=== PATIENT | male | born 1950 | race Caucasian/White ===

== ENCOUNTER 2016-09-13 06:30 | Inpatient (IN) | payer OTHER ==
--- NOTE | 2016-09-13 06:56 | PROVIDER DOCUMENTATION ---
HPI-Neurological Disorder - General Chief Complaint: Altered Mental Status Stated Complaint: ams Time Seen by Provider: 09/13/16 06:46 Source: EMS, halfway records Allergies/Adverse Reactions: Patient Allergies Allergy/AdvReac Type Severity Reaction Status Date / Time erythromycin base Allergy Unknown Verified 03/10/16 11:14 erythromycin lactobionate * Allergy RASH Verified 04/19/16 06:56 [From Erythrocin] iodine Allergy RASH Verified 04/19/16 06:56 niacin Allergy RASH Verified 03/10/16 11:14 Sdxtbli-Tdc-Csu Reductase Allergy Unknown Verified 03/10/16 11:14 Inhibitor adhesive AdvReac Unknown Verified 03/10/16 11:14 povidone-iodine AdvReac RASH Verified 03/10/16 11:14 [From Betadine] soap * [From Betadine] AdvReac RASH Verified 03/10/16 11:14 Home Medications: Home Medication List Medication Instructions Recorded Confirmed Last Taken Type Docusate Sodium [Stool Softener] 100 mg PO DAILY 10/01/14 09/13/16 03/09/16 22: 00 History Famotidine [Acid Control] 20 mg PO DAILY PRN PRN 10/01/14 09/13/16 03/09/16 22: 00 History Garlic 500 mg PO BID 10/01/14 09/13/16 03/09/16 22:00 History Calcitriol 0.25 mcg PO MOWEFR 10/07/14 09/13/16 03/09/16 22:00 History Isosorbide Mononitrate E.r. [Imdur] 30 mg PO DAILY #0 tablet 03/17/16 09/13/16 Unknown Rx Sorbitol 30 ml PO DAILY PRN PRN #0 udc 03/17/16 09/13/16 Unknown Rx Albuterol 2.5MG/Ipratrop 0.5MG 3 ml INH Q2H PRN PRN #0 neb 03/24/16 09/13/16 Unknown Rx [Duoneb (A & A)] Cilostazol 100 mg PO BID 04/19/16 09/13/16 04/18/16 History Amiodarone [Cordarone] 200 mg PO DAILY #0 tablet 04/27/16 09/13/16 Unknown Rx Aspirin 81 mg PO DAILY #0 chewtab 04/27/16 09/13/16 Unknown Rx Gabapentin 300 mg PO PRN PRN #30 capsule 04/27/16 09/13/16 Unknown Rx Gabapentin [Neurontin] 600 mg PO QHS #0 04/27/16 09/13/16 3 Months Ago Rx Metoprolol Succinate E.r. [Toprol 25 mg PO DAILY #0 tablet 04/27/16 09/13/16 Unknown Rx Xl] Sevelamer [Renagel] 800 mg PO TID CC #0 tablet 04/27/16 09/13/16 Unknown Rx Baclofen 10 mg PO TID 09/13/16 09/13/16 Unknown History Cholecalciferol (Vit D3) [Vitamin 1,000 unit PO DAILY 09/13/16 09/13/16 Unknown History D] Ezetimibe [Zetia] 10 mg PO HS 09/13/16 09/13/16 Unknown History Insulin Detemir [Levemir] 17 unit SUBQ DAILY 09/13/16 09/13/16 Unknown History Insulin Lispro [Humalog] 5 unit SQ AC 09/13/16 09/13/16 Unknown History Methocarbamol [Robaxin-750] 750 mg PO TID AC 09/13/16 09/13/16 Unknown History Oxycodone HCl 10 mg PO DIRECTED 09/13/16 09/13/16 Unknown History Oxycodone HCl 10 mg PO HS 09/13/16 09/13/16 Unknown History Oxycodone HCl 10 mg PO Q6H PRN PRN 09/13/16 09/13/16 Unknown History Polyethylene Glycol 3350 [Miralax] 17 gm PO WLUNCH 09/13/16 09/13/16 Unknown History Zinc Sulfate 220 mg PO DAILY 09/13/16 09/13/16 Unknown History - History of Present Illness-Neuro Nature of Presenting Problem: 66 y/o WM with a PMHx of DM, ESRD requiring dialysis, HLD, RLS, Lung Cancer and neuropathy that presents to the ED with a one day h/o AMS per halfway records and EMS. Per medical records, "pt became very lethargic upon waking for dialysis." Pt was " unable to follow commands or answer questions." BS at halfway reported to be 399. Vital signs stable. Blood sugar in EMS was 309. Pt unable to provide information at time of interview. Review of Systems - Adult - REVIEW OF SYSTEMS - ADULT ROS:: unobtainable per condition Constitutional: reports: other (unable to obtain due to condition) Eyes: reports: other (unable to obtain due to condition) Ears, Nose, Mouth & Throat: reports: other (unable to obtain due to condition) Cardiovascular: reports: other (unable to obtain due to condition) Respiratory: reports: other (unable to obtain due to condition) Gastrointestinal: reports: other (unable to obtain due to condition) Genitourinary: reports: other (unable to obtain due to condition) Musculoskeletal: reports: other (unable to obtain due to condition) Integumentary: reports: other (unable to obtain due to condition) Neurological: reports: other (unable to obtain due to condition, however medical record indicate pt is lethargic) Psychiatric: reports: other (unable to obtain due to condition) Endocrine: reports: other (unable to obtain due to condition) Hematologic/Lymphatic: reports: other (unable to obtain due to condition) Allergic/Immunologic: reports: other (unable to obtain due to condition) Past History - Adult - PAST MEDICAL HISTORY-ADULT Review of Records: reports: Old Records Reviewed, Nursing Assessment Review, Medications Reviewed Major Childhood Illnesses: reports: denies history Cardiovascular: reports: HTN Genitourinary: reports: dialysis, ESRD Endocrine/Immune: reports: Diabetes Other Conditions: reports: denies history - PRIOR SURGERIES/PROCEDURES Surgical/Procedure History: reports: other (cataract;) - PRIOR HOSPITALIZATIONS Prior Hospitalizations: reports: none - IMMUNIZATION STATUS Childhood Immunizations: See Nurse Assessment Flu Vaccine: See Nurse Assessment - FAMILY HISTORY Family History: reviewed, not pertinent - SOCIAL HISTORY Smoking: other (unable to obtain due to condition) Substance Use: other (unable to obtain due to condition) Living Situation: care facility Physical Exam- Neurological - Physical Exam-Neuro Initial Vital Signs Reviewed: Yes General Appearance: lethargic, slow to respond, obtunded. negative: anxious HENMT: normocephalic/atraumatic. negative: pharyngeal erythema, tonsillar exudate (dry oral mucosa) Head Injury: no evidence of injury. negative: ecchymosis, swelling, tenderness Neck: non-tender, supple. negative: tender midline Respiratory: chest non-tender, lungs clear, normal breath sounds, no pleuratic chest pain, no respiratory distress, no accessory muscle use. negative: accessory muscle use, crackles, rales, rhonchi, stridor, wheezing Cardiovascular: normal peripheral pulses, regular rate, rhythm, no murmur Abdominal Exam: normal bowel sounds, non tender, soft. negative: guarding, rigid, rebound, tenderness Lymphatic: no adenopathy Extremity: other (right lower extremity with signs of atrophy). negative: swelling, tenderness head machine feeder Exam: normal speech. negative: facial droop, facial paresthesias, facial weakness Motor/Sensory: no motor deficit, no sensory deficit, sensory deficit Neurologic: negative: facial droop, focal weakness, motor weakness, sensory deficit Integumentary: rash (rash at bilateral lower extremities). negative: swelling, tenderness Psych/Mental Status: other (lethargic). negative: normal mood/affect, normal thought content, normal thought process - Glascow Coma Scale Best Eye Response: (4) open spontaneously Best Verbal Response: (4) confused conversation Best Motor Response: (6) obeys commands (GCS = 14) Progress - PLAN OF CARE/RESULTS Progress/Plan/Lab Results: Laboratory Tests 09/13/16 09/13/16 09/13/16 06:56 07:22 07:22 WBC 4.13 L RBC 3.79 L Hgb 11.4 L Hct 35.5 L MCV 93.7 MCH 30.1 MCHC 32.1 L RDW Std Deviation 13.4 Plt Count 139 MPV 9.4 Immature Gran % (Auto) 0.0 Neut % (Auto) 59.2 Lymph % (Auto) 20.8 [place] % (Auto) 11.6 H Eos % (Auto) 6.5 Baso % (Auto) 1.9 H Immature Gran # (Auto) 0.00 Neut # (Auto) 2.44 Lymph # (Auto) 0.86 L [place] # (Auto) 0.48 Eos # (Auto) 0.27 Baso # (Auto) 0.08 PT INR PTT (Actin FS) Specimen Type ARTERIAL Sample Site R RADIAL pH 7.33 L pCO2 43 pO2 89 HCO3 22.4 Base Excess -3.2 L Oxyhemoglobin 94.8 L ABG O2 Sat (Calculated) 16.1 ABG O2 Saturation 98.5 ABG Carboxyhemoglobin 2.50 ABG Methemoglobin 1.3 Magan Test YES A-a O2 Difference 57.0 Total Hemoglobin 12.0 Lactate 0.90 Liter Flow 2.0 Blood Gas Modality CANNULA FiO2 % 28.0 Sodium 128 L Potassium 5.1 Chloride 88 L Carbon Dioxide 21 L Anion Gap 19 BUN 41 H Creatinine 5.9 H Estimated GFR/1.73 m2 10 BUN/Creatinine Ratio 7 Glucose 348 H Calculated Osmolality 281 Calcium 9.4 Total Bilirubin 0.36 AST 7 L ALT 9 L Alkaline Phosphatase 131 H Creatine Kinase 40 Troponin T Total Protein 6.1 L Albumin 3.9 Globulin 2.2 Albumin/Globulin Ratio 1.8 Plasma Lactate Urine Source Urine Color Urine Turbidity Urine pH Ur Specific [place] Urine Protein Ur Glucose (Stick) Ur Ketones (Stick) Urine Blood Urine Nitrite Urine Bilirubin Urobilinogen Dipstick Urine Leukocytes Urine WBC (Auto) Urine RBC (Auto) U Epithel Cells (Auto) Urine Bacteria (Auto) Urine Crystals Small Round Cells Urine Casts Urine Yeast-like Cells Urine Opiates Screen Ur Oxycodone Screen Ur Methadone, Qual Ur Barbiturates Screen Ur Phencyclidine Scrn Ur Amphetamines Screen U Benzodiazepines Scrn Urine Cocaine Screen U Cannabinoids Screen Acetone Level 09/13/16 09/13/16 09/13/16 07:22 07:22 07:22 WBC RBC Hgb Hct MCV MCH MCHC RDW Std Deviation Plt Count MPV Immature Gran % (Auto) Neut % (Auto) Lymph % (Auto) [place] % (Auto) Eos % (Auto) Baso % (Auto) Immature Gran # (Auto) Neut # (Auto) Lymph # (Auto) [place] # (Auto) Eos # (Auto) Baso # (Auto) PT 11.9 H INR 1.12 PTT (Actin FS) 29.0 Specimen Type Sample Site pH pCO2 pO2 HCO3 Base Excess Oxyhemoglobin ABG O2 Sat (Calculated) ABG O2 Saturation ABG Carboxyhemoglobin ABG Methemoglobin Magan Test A-a O2 Difference Total Hemoglobin Lactate Liter Flow Blood Gas Modality FiO2 % Sodium Potassium Chloride Carbon Dioxide Anion Gap BUN Creatinine Estimated GFR/1.73 m2 BUN/Creatinine Ratio Glucose Calculated Osmolality Calcium Total Bilirubin AST ALT Alkaline Phosphatase Creatine Kinase Troponin T 0.196 H Total Protein Albumin Globulin Albumin/Globulin Ratio Plasma Lactate 1.0 Urine Source Urine Color Urine Turbidity Urine pH Ur Specific [place] Urine Protein Ur Glucose (Stick) Ur Ketones (Stick) Urine Blood Urine Nitrite Urine Bilirubin Urobilinogen Dipstick Urine Leukocytes Urine WBC (Auto) Urine RBC (Auto) U Epithel Cells (Auto) Urine Bacteria (Auto) Urine Crystals Small Round Cells Urine Casts Urine Yeast-like Cells Urine Opiates Screen Ur Oxycodone Screen Ur Methadone, Qual Ur Barbiturates Screen Ur Phencyclidine Scrn Ur Amphetamines Screen U Benzodiazepines Scrn Urine Cocaine Screen U Cannabinoids Screen Acetone Level 09/13/16 09/13/16 09/13/16 07:22 08:00 08:00 WBC RBC Hgb Hct MCV MCH MCHC RDW Std Deviation Plt Count MPV Immature Gran % (Auto) Neut % (Auto) Lymph % (Auto) [place] % (Auto) Eos % (Auto) Baso % (Auto) Immature Gran # (Auto) Neut # (Auto) Lymph # (Auto) [place] # (Auto) Eos # (Auto) Baso # (Auto) PT INR PTT (Actin FS) Specimen Type Sample Site pH pCO2 pO2 HCO3 Base Excess Oxyhemoglobin ABG O2 Sat (Calculated) ABG O2 Saturation ABG Carboxyhemoglobin ABG Methemoglobin Magan Test A-a O2 Difference Total Hemoglobin Lactate Liter Flow Blood Gas Modality FiO2 % Sodium Potassium Chloride Carbon Dioxide Anion Gap BUN Creatinine Estimated GFR/1.73 m2 BUN/Creatinine Ratio Glucose Calculated Osmolality Calcium Total Bilirubin AST ALT Alkaline Phosphatase Creatine Kinase Troponin T Total Protein Albumin Globulin Albumin/Globulin Ratio Plasma Lactate Urine Source CATH Urine Color YELLOW Urine Turbidity HAZY Urine pH 7.0 Ur Specific [place] 1.011 Urine Protein 300 A Ur Glucose (Stick) >1000 A Ur Ketones (Stick) TRACE A Urine Blood MODERATE A Urine Nitrite NEGATIVE Urine Bilirubin NEGATIVE Urobilinogen Dipstick NORMAL Urine Leukocytes LARGE A Urine WBC (Auto) TNTC A Urine RBC (Auto) TNTC A U Epithel Cells (Auto) <10 Urine Bacteria (Auto) NEGATIVE Urine Crystals Not Reportable Small Round Cells Not Reportable Urine Casts NONE SEEN Urine Yeast-like Cells Not Reportable Urine Opiates Screen NONE DETECTED Ur Oxycodone Screen PRESUMPTIVE POSITIVE A Ur Methadone, Qual NONE DETECTED Ur Barbiturates Screen NONE DETECTED Ur Phencyclidine Scrn NONE DETECTED Ur Amphetamines Screen NONE DETECTED U Benzodiazepines Scrn NONE DETECTED Urine Cocaine Screen NONE DETECTED U Cannabinoids Screen NONE DETECTED Acetone Level SMALL A Orders Category Date Time Status Admit - [facility] Routine AdmDCTranf 09/13/16 09:54 Ordered Activity - Strict Bedrest ORDERED Care 09/13/16 09:54 Active Call Admitting on Arrival AT ADMISSION Care 09/13/16 09:55 Active Cardiac Monitoring DIRECTED Care 09/13/16 06:56 Active Finger Stick Blood Sugar (ED) DIRECTED Care 09/13/16 06:56 Active Neurological Check Q4H Care 09/13/16 09:55 Active Oxygen Therapy- ED Nursing DIRECTED Care 09/13/16 06:54 Active Oxygen Therapy- ED Nursing DIRECTED Care 09/13/16 06:56 Active Saline Loc NOW Care 09/13/16 06:56 Active Vital Signs Order ARRIVAL TO ROOM Care 09/13/16 09:54 Active NPO Diet 09/13/16 09:56 Active CHEST-PORTABLE [RAD] Stat Exams 09/13/16 06:56 Completed HEAD W/O CONTRAST [CT] Stat Exams 09/13/16 06:31 Completed ABG [RESP] Routine Lab 09/13/16 06:56 Completed CBC WITH ELECTRONIC DIFF [HEME] Stat Lab 09/13/16 07:22 Completed CK PROFILE [SP CHEM] Stat Lab 09/13/16 07:22 Completed COMPREHENSIVE METABOLIC PANEL [CHEM] Stat Lab 09/13/16 07:22 Completed Ketone [ACETONE SERUM] [CHEM] Stat Lab 09/13/16 07:22 Completed LACTATE, PLASMA [CHEM] Stat Lab 09/13/16 07:22 Completed PROTIME WITH INR [COAG] Stat Lab 09/13/16 07:22 Completed PTT [COAG] Stat Lab 09/13/16 07:22 Completed TROPONIN T Stat Lab 09/13/16 07:22 Completed URINALYSIS W/POSS RFLX CULT [URINALYSIS] Stat Lab 09/13/16 08:00 Completed URINE CULTURE [RM] Routine Lab 09/13/16 08:35 Received URINE DRUG SCREEN Stat Lab 09/13/16 08:00 Completed URINE MANUAL MICROSCOPIC [URINALYSIS] Stat Lab 09/13/16 08:00 Completed 0.9% Sodium Chloride Inj [Ns] 1,000 ml Med 09/13/16 10:00 Ordered IV KVO 0.9% Sodium Chloride Inj [Ns] 500 ml Med 09/13/16 08:32 Discontinued IV 999 mls/hr Insulin Human Regular [Humulin R] Med 09/13/16 08:33 Discontinued 5 unit IV NOW ONE Oxygen Device Routine Oth 09/13/16 09:55 Active Pulse Oximetry Stat Oth 09/13/16 06:56 Active EKG [EKG] Stat Ther 09/13/16 06:43 Draft EKG [EKG] Stat Ther 09/13/16 06:56 Ordered Transfer/Admit Order [TRANSFER] Routine Transfer 09/13/16 09:56 Ordered Vital Signs - 24 hr 09/13/16 06:50 Temperature 97.5 F L Pulse Rate 60 Respiratory 16 Rate Blood Pressure 163/74 O2 Sat by Pulse 96 Oximetry - EKG 1 Time of EKG reading by physician:: 06:50 EKG Read and Signed by:: Aleksandra Santos Jr EKG Interpretation (*Must complete 3 of following elements*): Normal Rate: 60 Rhythm: normal sinus [place]: normal QRS: normal MS Interval: normal ST Wave: normal Comments: normal EKG - XRAY 1 XRAY Study: Chest Impression: Abnormal XRAY Interpretation: cardiomegaly with mild pulmonary edema - CT/MRI 1 CT Study: Head Impression: Abnormal CT Results: No hemorrhage. Mild Atrophy with mild microvascular changes. - CONSULTS/PCP/HOSPITALIST Notification #1 *Consult/PCP/Hospitalist*: Dr. Olivares Time Discussed: 09:48 Consult Disposition: Admit, other (consult Nephrology) #2 Consult: Dr. 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
--- NOTE | 2016-09-13 07:28 | Diag Imaging Result Document ---
PROCEDURE NAME: HEAD W/O CONTRAST - 09/13/2016 CT BRAIN WITHOUT CONTRAST. DOSE REDUCTION PROTOCOL: COMPARISON: 04/19/2016. FINDINGS: No parenchymal hemorrhage. No epidural or subdural hematoma. No subarachnoid hemorrhage. No mass identified on this noncontrasted exam. There are mild microvascular ischemic changes with minimal atrophy. IMPRESSION: 1. No hemorrhage. 2. Mild atrophy with mild microvascular ischemic changes. A preliminary report was given at 7:01 a.m.
[2016-09-13 07:38] LABS: MANUAL DIFF NEEDED? NO
[2016-09-13 07:39] LABS: ALLEN TEST YES; BE -3.2 mmoll (-3.0-3.0); BLOOD TYPE ARTERIAL; DRAW SITE R RADIAL; METHB 1.3 % (0.0-1.5); O2(CT) 16.1 mL/dL (15.0-23.0); PCO2(98.6) 43 mmHg (35-45); PO2(98.6) 89 mmHg (60-100); SAMPLE BLOOD; SAO2 98.5 % (95.0-100.0); pH(98.6) 7.33 (7.35-7.45)
[2016-09-13 07:40] LABS: MODALITY CANNULA
[2016-09-13 07:41] LABS: BASO% 1.9 % (0.0-0.8); EOS# 0.27 X1000 (0.0-0.7); EOS% 6.5 % (0.0-10.0); HEMATOCRIT 35.5 % (42.0-52.0); HEMOGLOBIN 11.4 g/dL (14.0-18.0); LYMPH# 0.86 X1000 (1.2-3.4); LYMPH% 20.8 % (20.5-51.1); MCH 30.1 PG (27-31); MCHC 32.1 g/dL (33-37); MCV 93.7 FL (81-99); MONO# 0.48 X1000 (0.11-0.59); MONO% 11.6 % (1.7-9.3); MPV 9.4 FL (7.4-10.4); NEUT% 59.2 % (42.2-75.2); PLT 139 X1000 (130-400); RBC 3.79 XMIL (4.7-6.1)
[2016-09-13 07:49] LABS: INR 1.12; PROTIME 11.9 Seconds (9.2-11.7)
[2016-09-13 08:01] LABS: ALBUMIN 3.9 g/dL (3.5-5.0); CALCIUM 9.4 mg/dL (8.8-10.2); POTASSIUM 5.1 mmol/L (3.5-5.1); TOTAL BILIRUBIN 0.36 mg/dL (0.20-1.00); TOTAL PROTEIN 6.1 g/dL (6.3-8.3)
--- NOTE | 2016-09-13 08:09 | EKG Report ---
Test Performed on : 09/13/2016 06:50:32 AM Test Reason : AMS Blood Pressure : / mmHG Vent. Rate : 060 BPM Atrial Rate : 060 BPM P-R Int : 186 ms QRS Dur : 088 ms QT Int : 454 ms P-R-T Axes : 070 081 086 degrees QTc Int : 454 ms Normal sinus rhythm. Normal ECG When compared with ECG of 23-MAR-2016 08:26, No significant change was found Unconfirmed Result
--- NOTE | 2016-09-13 08:11 | Diag Imaging Result Document ---
PROCEDURE NAME: CHEST-PORTABLE - 09/13/2016 PORTABLE CHEST: COMPARISON: 04/21/2016. FINDINGS: There are sternal wires and surgical clips. The patient is slightly rotated to the right. The heart remains enlarged. Mild increased interstitial markings. No consolidation. No pleural effusions identified. Prior orthopaedic replacement of the left shoulder. IMPRESSION: Cardiomegaly with mild pulmonary edema.
[2016-09-13 08:13] LABS: URINE SOURCE CATH
[2016-09-13 08:21] LABS: BILIRUBIN URINE NEGATIVE (NEGATIVE); BLOOD URINE MODERATE (NEGATIVE); COLOR YELLOW; GLUCOSE URINE >1000 mg/dL (NEGATIVE); LEUKOCYTES URINE LARGE (NEGATIVE); NITRITE URINE NEGATIVE (NEGATIVE); PROTEIN URINE 300 mg/dL (NEGATIVE); SP GRAVITY URINE 1.011; TURBIDITY URINE HAZY (CLEAR); UROBILINOGEN URINE NORMAL (NORMAL)
[2016-09-13 08:22] LABS: URINE MICRO REVIEW NEEDED? YES
[2016-09-13] MEDS ORDERED: NS 500 ML IV ONE (08:32)
[2016-09-13 08:33] LABS: UR EPITHELIAL CELLS <10 /HPF (<10); URINE BACTERIA NEGATIVE /HPF; URINE CULTURE NEEDED? YES; URINE RBC TNTC /HPF (<10); URINE WBC TNTC /HPF (<10)
[2016-09-13] MEDS ORDERED: HUMULIN R IV ONE (08:33)
[2016-09-13 08:34] LABS: URINE CASTS NONE SEEN
[2016-09-13 08:51] LABS: UR AMPHETAMINES QUAL NONE DETECTED (NONE DETECT); UR BARBITUATES QUAL NONE DETECTED (NONE DETECT); UR BENZODIAZEPIN QUAL NONE DETECTED (NONE DETECT); UR CANNABINOIDS QUAL NONE DETECTED (NONE DETECT); UR COCAINE QUAL NONE DETECTED (NONE DETECT); UR METHADONE QUAL NONE DETECTED (NONE DETECT); UR OPIATES QUAL NONE DETECTED (NONE DETECT); UR OXYCODONE QUAL PRESUMPTIVE POSITIVE (NONE DETECT); UR PCP QUAL NONE DETECTED (NONE DETECT)
[2016-09-13] MEDS ORDERED: NS 1,000 ML IV SCH (10:00)
[2016-09-13] MEDS ORDERED: HEPARIN IV PRN (11:13)
[2016-09-13] MEDS ORDERED: TIGHT: 0.2 ML/HR MISC PRN (11:13)
[2016-09-13] MEDS ORDERED: NS 2,000 ML MISC PRN (11:13)
[2016-09-13] MEDS ORDERED: NS 2,000 ML ONE (12:24)
[2016-09-13] MEDS ORDERED: HEPARIN ONE (12:31)
--- NOTE | 2016-09-13 12:36 | HISTORY AND PHYSICAL ---
PRIMARY CARE PHYSICIAN: Dara Palacios MD ONCOLOGIST: Sujatha Forrest MD DISCOUNT CLERK: Nathanael Kurtz MD CHIEF COMPLAINT: Altered mental status. HISTORY OF PRESENT ILLNESS: Mr. Goncalves is a 66-year-old, male, well known to our service. He has a history of ESRD on hemodialysis, adenocarcinoma of the lung, coronary artery disease and others. He presents from retirement with apparent altered mental status. Patient is minimally responsive at this time and is unable to give any type of history. History is taken per record review. He was sent from the retirement because he was unable to follow commands or answer questions and he was lethargic today. His blood sugar was noted to be 399. EMS was called and the patient was sent here. Head CT does not show anything acute. Chest x-ray shows mild cardiomegaly and slight pulmonary edema, but nothing acute. His laboratory data shows good oxygenation and ventilation on his ABG. Chemistry shows some mild hyponatremia and hyperglycemia. His UA is positive for heavy glucosuria and WBC's, but no bacteria. On physical exam, the patient does not respond to painful stimuli, he is breathing on his own and he does have a pulse. He does occasionally move an extremity randomly, but not purposefully. He has come in before with altered mental status and he is on long-term narcotic therapy. His home medications it looks like he takes quite a bit of oxycodone as well as Neurontin and baclofen. We have elected not to give him Narcan at this time as he is hemodynamically stable and he is oxygenating and ventilating well. As such, we are going to admit him for further treatment and evaluation. PAST MEDICAL HISTORY: 1. Lung cancer. 2. ESRD on hemodialysis followed by Dr. Kurtz. 3. Coronary artery disease. 4. Diabetes mellitus requiring insulin. 5. Hypertension. 6. Paroxysmal atrial fibrillation. 7. Anemia of chronic disease. 8. Chronic vitamin D deficiency. 9. Chronic pain. PAST SURGICAL HISTORY: CABG, colon resection, right foot ORIF, lower back surgery, appendectomy, bilateral cataract surgery, left shoulder arthroplasty. SOCIAL HISTORY: The patient currently lives at a rehab in [place]. Per records he is an ex smoker. There is no alcohol or drug use. FAMILY HISTORY: Noncontributory. REVIEW OF SYSTEMS: Unable to obtain. ALLERGIES: Erythromycin, iodine, niacin, statins, adhesive, and Betadine. HOME MEDICATIONS: Baclofen 10 mg t.i.d., calcitriol 0.25 mcg as directed, vitamin D 1000 units p.o. daily, cilostazol 100 mg b.i.d., stool softener daily, Zetia 10 mg HS, famotidine 20 mg daily, garlic 500 mg b.i.d., Levemir 17 units subcu daily, Humalog 5 units subcu a.c., Robaxin 750 mg p.o. t.i.d. a.c., oxycodone 10 mg p.o. q.6 hours as needed, oxycodone 10 mg p.o. HS and oxycodone 10 mg as needed for breakthrough pain, MiraLAX 17 g p.o. with lunch, zinc sulfate 220 mg daily, amiodarone 200 mg daily, aspirin 81 mg daily, Neurontin 300 mg as needed, Neurontin 600 mg HS, isosorbide mononitrate ER 30 mg daily, Toprol-XL 25 mg daily, Renagel 800 mg p.o. t.i.d., sorbitol 30 mg p.o. daily. PHYSICAL EXAMINATION: VITAL SIGNS: Blood pressure 121/62, heart rate 54, respiratory rate 12, O2 saturation 97% on 2 L. Temperature is 97.5 degrees. GENERAL: This is a chronically ill and frail-appearing 66-year-old, male, lying in hospital bed. No acute distress. NEUROLOGIC: The patient is lethargic and asleep. He will not respond to sternal rub. Occasionally moves an extremity but without purpose. Cranial nerves are intact 2 through 12. HEENT: Head atraumatic and normocephalic. His pupils are equal, but pinpoint bilaterally. Oral mucosa is a bit dry. Trachea is midline. CHEST: Clear to auscultation bilaterally. CV: Regular rate and rhythm. S1-S2 is noted. GI: Soft, nondistended, nontender. Bowel sounds are positive. EXTREMITIES: Without edema, clubbing or cyanosis. Pulses are diminished, but palpable. DIAGNOSTIC DATA: Head CT chronic changes, nothing acute. Chest x-ray shows mild cardiomegaly and slight pulmonary edema. EKG shows sinus rhythm without acute ST or T abnormality. WBC 4.13, hemoglobin 11.4, hematocrit 35.5, platelet count 139,000. INR 1.12. ABG on 2 L, pH 7.33, CO2 43, O2 89, bicarb 22.4. Oxyhemoglobin 94.8. Lactate 0.9. Sodium 128, potassium 5.1, chloride 88, CO2 21, anion gap 19, BUN 41, creatinine 5.9. Glucose is 348. AST 7, ALT 9, alkaline phosphatase 131, troponin 0.196. Toxicology positive for oxycodone and small acetone. ASSESSMENT AND PLAN: 1. Toxic encephalopathy: This is likely secondary to narcotic therapy on top of the ESRD. We are going to withhold any mind-altering substances and have Dr. Kurtz dialyze the patient. We will monitor his neuro status closely. 2. Hyperglycemia: Patient has gotten IV insulin in the ER. We will continue with high-dose sliding scale and continue his home insulin once the patient is eating again. 3. Endstage renal disease: Dr. Kurtz has been consulted for dialysis management. Currently, he is slightly anemic and hyponatremic, but this is overall stable. We will continue to monitor. 4. Elevated troponin's: Patient has chronically elevated troponin's, likely secondary to volume overload on top of CAD. We will continue to trend his enzymes. He has had an echocardiogram done on 04/19/2016, which showed hyperdynamic LV and EF 70-75%. 5. Lung cancer: Chronic and stable. We will him follow up with Oncology on outpatient basis. 6. Paroxysmal atrial fibrillation: Chronic and stable. We will continue his home medicines once he is more awake. 7. Diabetes mellitus: As above, add pattern sugars and sliding scale insulin. 8. Hypertension: We will add IV p.r.n. for now and restart his home medications once he is more awake. 9. DVT prophylaxis with heparin and GI prophylaxis with IV Protonix. Further recommendations to follow. Dictated by SANDOR Martinez for Paco Olivares MD
[2016-09-13] MEDS: HUMALOG SUBQ SCH ×2 (17:46→21:20)
[2016-09-13] MEDS: PROTONIX IV SCH (17:46)
--- NOTE | 2016-09-13 17:51 | CONSULTATION ---
DATE OF CONSULTATION: 09/13/2016 REASON FOR CONSULTATION: Endstage renal disease. Evaluate and treat. HISTORY OF PRESENT ILLNESS: Mr. Goncalves is a 66-year-old white male who is well known to me. He has diabetes type 1 and has end-stage kidney disease, retinopathy, peripheral neuropathy, peripheral vascular disease, coronary disease, etc. He had a recent diagnosis of lung cancer and also a cervical spine fracture which was not pathologic by report. He has been living in a intermediate facility in [place] and participating in rehab. I last saw him about 2 weeks ago at which time he was awake, alert, in his usual baseline health. Still struggling with weaknesses, but eating acceptably and making progress physically. He was brought to the emergency room because of altered sensorium. He did have a muscle relaxer added recently. The reason for this is not known to me. That has been the only medication to medication change , though he does take high doses of gabapentin as well. On arrival, he responded only to pain, and this is essentially true still. With vigorous stimuli he will open his eyes, but he does not fix on me and doses right back off. He had a CT of the brain which did not show any acute abnormalities. He does have chronic microvascular changes. Chest x-ray performed this morning at 7 o'clock had mild pulmonary edema. There is no mention of his lung mass. PAST MEDICAL HISTORY: As above. HOME MEDICATIONS: Reviewed as listed. Baclofen, calcitriol, vitamin D2, cilostazol, Colace, Zetia, famotidine, Levemir, oxycodone, Robaxin, MiraLAX, zinc, amiodarone, aspirin, Neurontin, isosorbide, Toprol, Renvela, sorbitol. ALLERGIES: Erythromycin, iodine, niacin, statins, adhesive, Betadine. FAMILY HISTORY/SOCIAL HISTORY/REVIEW OF SYSTEMS: Otherwise not obtainable. PHYSICAL EXAMINATION: Vital Signs: Blood pressure 121/62, heart rate 54, respirations 12, afebrile. General: Mental state as above. No acute distress. Skin: Warm and dry. HEENT: Conjunctivae are pink. Pupils are equal and round. Oropharynx is clear. Neck : Supple. Trachea is midline. Positive jugular venous distention. Heart: PMI is nondisplaced. Regular rate and rhythm with systolic murmur present. Lungs: Have equal breath sounds. Somewhat sonorous with a few rhonchi. Abdomen: Soft, nontender. Bowel sounds are present. No organomegaly or masses or bruits. Extremities: Have 1+ edema. No clubbing or cyanosis. Neurologic: Grossly nonfocal except for his global depressed sensorium, as above. IMPRESSION: 1. End-stage kidney disease: He will have his routine hemodialysis today with a goal of 3-4 L ultrafiltration. 2. Electrolytes: Modest hyperkalemia that will be addressed with dialysis. 3. Acid-base: Modest metabolic acidosis. Managed with dialysis. 4. Anemia: In target. 5. Altered mental status: I agree with your care thus far. Specifically, all of his sensory altering medications have been withheld and appropriate cultures have been obtained. No specific antibiotics have been ordered. Observe his response. [facility]
[2016-09-13] MEDS: HEPARIN SUBQ SCH (22:03)
[2016-09-14] MEDS ORDERED: STERILE WATER INJ. INJ ONE (06:35)
[2016-09-14] MEDS ORDERED: GEODON IM ONE (06:35)
[2016-09-14 07:13] LABS: HEMATOCRIT 41.8 % (42.0-52.0); HEMOGLOBIN 13.1 g/dL (14.0-18.0); MCH 29.9 PG (27-31); MCHC 31.3 g/dL (33-37); MCV 95.4 FL (81-99); MPV 9.5 FL (7.4-10.4); RBC 4.38 XMIL (4.7-6.1)
[2016-09-14 07:32] LABS: AGAP 25; BUN 19 mg/dL (8-22); CALCIUM 9.5 mg/dL (8.8-10.2); CHLORIDE 95 mmol/L (98-107); COSMO 287; HDL 64 mg/dL (35-55); LDL 37 mg/dL; POTASSIUM 4.9 mmol/L (3.5-5.1); SODIUM 139 mmol/L (136-145); TCO2 19 mmol/L (25-35); TRIGLYCERIDES 195 mg/dL (39-160); VLDL 39 mg/dL
--- NOTE | 2016-09-14 10:51 | PROGRESS NOTE ---
DATE: 09/14/2016 SUBJECTIVE: He remains unresponsive. He does move in the bed spontaneously, and he opens his eyes and looks toward me but he is nonverbal. This is some improvement from yesterday. OBJECTIVE: Vital Signs: Blood pressure 123/72, heart rate 71, respirations 20, afebrile. Intake 200 mL, output 3 L. Physical Examination: General: Mental status as above. Skin: Warm and dry. HEENT: Conjunctivae are pink. Pupils are equal. Oropharynx is dry. Neck: Neck veins are not distended. Heart: Regular with no murmurs, rubs, or gallops. Lungs: Have equal breath sounds. No crackles or wheezes. Abdomen: Soft and nontender. Bowel sounds are present. Extremities: Have no edema, clubbing, or cyanosis. Laboratory Data: Sodium 139, potassium 4.9, chloride 95, bicarbonate 19, BUN 19, creatinine 3.7. Hemoglobin 13.1. IMPRESSION: 1. Altered mental status. We are assuming this is related to medications. Specifically, he had a muscle relaxer added in the day prior to his admission. All medications have been held. He did receive 1 dose of Geodon this morning because of his agitation. He does also have lung cancer and has had some treatment for that. There is no known evidence of metastasis at this time. 2. End-stage kidney disease: He had dialysis yesterday. 3. Acid-base acceptable. 4. Electrolytes in target. 5. Anemia in target.
[2016-09-14] MEDS ORDERED: VANCOMYCIN IV PER PHARMACY MISC SCH (11:00)
[2016-09-14 11:16] LABS: ALLEN TEST NO; BE -8.9 mmoll (-3.0-3.0); BLOOD TYPE ARTERIAL; DRAW SITE R BRACHIAL; METHB 1.5 % (0.0-1.5); MODALITY ROOM AIR; O2(CT) 16.4 mL/dL (15.0-23.0); PCO2(98.6) 31 mmHg (35-45); PO2(98.6) 70 mmHg (60-100); SAMPLE BLOOD; SAO2 94.8 % (95.0-100.0); THB 12.8 g/dL (11.5-17.4); pH(98.6) 7.32 (7.35-7.45)
[2016-09-14] MEDS: HUMALOG SUBQ SCH (11:30)
--- NOTE | 2016-09-14 11:40 | PROGRESS NOTE ---
DATE: 09/14/2016 SUBJECTIVE: Today, Mr. Goncalves continues to be remarkably altered. He is nonverbal, very boisterous. He is actually hanging both legs on the rails of the bed. He is in 2-point restraint. OBJECTIVE: Vital Signs: Blood pressure is 123/72, pulse of 71, respirations are 20, temperature is 98.1 degrees. General Examination: Mr. Goncalves is a 66-year-old, male. He is in bed. He does not seem to be in any distress. HEENT: Mucosa is pink and moist. Anicteric and acyanotic. Neck: Supple. Chest: Good air entry bilateral. Abdomen: Slightly distended but nontender. Bowel sounds are present. Extremities: No pedal edema. There are a few lower extremity scratches and honey-crusted lesion very suspicious for impetigo. PROTECTION MGR : Patient is drowsy. He is actually not responding to any verbal stimulation but he would move very actively to painful stimulation. He will not open his eyes for anything. Even when you try to open them, he will persistently try to force them closed. Laboratory Data: WBC 6.28, hemoglobin is 13.1, platelet count of 148,000. Sodium is 139, potassium is 4.9, chloride is 95, bicarb is 19, gap of 25. Ferritin is very high. Urine culture is negative. The acetone is positive. ASSESSMENT: 1. Altered mental status due to global encephalopathy. The etiology is unclear. Urine toxicology was positive for oxycodone which we think is contributing to this. However, patient is also remarkably acidotic and even after having dialysis yesterday , he continues to be remarkably acidotic with a high anion gap. The serum acetone yesterday was positive so I am thinking that patient probably also has diabetic ketoacidosis confounding his altered mentation. I will repeat the acetone level. I will also do a lactate level. We will repeat the arterial blood gases. If he continues to have gap acidosis, I will move him to [facility] and institute the diabetic ketoacidosis protocol. 2. Abnormal TSH. I am unsure if patient is hypothyroid. I will repeat this and do a free T4 with that to give a better picture of the thyroid function state. 3. Endstage renal disease, on hemodialysis. 4. Chronic elevation of troponins. 5. History of lung cancer. 6. Atrial fibrillation, currently rate controlled. 7. Diabetes mellitus uncontrolled. GENERAL PLAN: We are going to repeat, as I said, the acetone level. We will do a lactate level. If acetone continues to be positive, we will treat the patient for DKA and see if it will improve his mentation. We will also do his repeated TSH with free T4 to make sure he is not having any hypothyroidism which could also confound his mentation. [facility]
[2016-09-14 11:47] LABS: FREE T4 1.25 ng/dL (0.93-1.70)
[2016-09-14] MEDS ORDERED: VANCOMYCIN 1 GM/NS 250 ML IV ONE (12:00)
[2016-09-14] MEDS: HEPARIN SUBQ SCH ×2 (12:09→22:30)
[2016-09-14] MEDS: ZOSYN 2.25 GM/NS 50 ML IV SCH ×3 (13:30→22:30)
[2016-09-14] MEDS: PROTONIX IV SCH (13:33)
[2016-09-14] MEDS: SODIUM CHLORIDE 0.9% INJ SCH (13:33)
[2016-09-14] MEDS ORDERED: HUMULIN R 100 UNIT in NS 100 ML IV SCH (14:00)
[2016-09-14] MEDS ORDERED: NS 1,000 ML IV SCH (14:00)
[2016-09-14] MEDS ORDERED: POTASSIUM CHLORIDE 40 MEQ in NS 250 ML IV PRN (14:32)
[2016-09-14] MEDS ORDERED: SODIUM PHOSPHATE 30 MMOL in D5W 250 ML IV PRN (14:32)
[2016-09-14] MEDS ORDERED: KLOR-CON PO PRN ×2 (14:32)
[2016-09-14] MEDS ORDERED: 1/2 NS 1,000 ML IV SCH (14:32)
[2016-09-14] MEDS ORDERED: POTASSIUM CHLORIDE 20 MEQ in NS 100 ML IV PRN (14:32)
[2016-09-14] MEDS ORDERED: MAGNESIUM SULFATE 2 GM/S.W.I. 50 ML IV PRN (14:32)
[2016-09-14] MEDS ORDERED: D5 NS 1,000 ML IV SCH (14:32)
[2016-09-14] MEDS ORDERED: D50W SYRINGE IV PRN (14:32)
[2016-09-14] MEDS ORDERED: HUMULIN R 100 UNIT in NS 99 ML IV SCH (14:32)
[2016-09-14] MEDS: NS 1,000 ML IV SCH ×3 (15:35→20:34)
[2016-09-14 16:29] LABS: CALCIUM 9.6 mg/dL (8.8-10.2); MAGNESIUM 2.2 mg/dL (1.5-2.7); POTASSIUM 4.1 mmol/L (3.5-5.1)
[2016-09-14 20:27] LABS: CALCIUM 9.7 mg/dL (8.8-10.2); MAGNESIUM 2.2 mg/dL (1.5-2.7); POTASSIUM 4.3 mmol/L (3.5-5.1)
[2016-09-14] MEDS: D5 1/2 NS 1,000 ML IV SCH (20:34)
[2016-09-14] MEDS: 1/2 NS 1,000 ML IV SCH (20:37)
[2016-09-14 23:19] LABS: CALCIUM 9.6 mg/dL (8.8-10.2); MAGNESIUM 2.1 mg/dL (1.5-2.7); POTASSIUM 4.1 mmol/L (3.5-5.1)
[2016-09-15] MEDS ORDERED: ATIVAN IV ONE (02:35)
[2016-09-15 03:50] LABS: CALCIUM 9.8 mg/dL (8.8-10.2); MAGNESIUM 2.1 mg/dL (1.5-2.7); POTASSIUM 4.3 mmol/L (3.5-5.1)
[2016-09-15] MEDS: D5 1/2 NS 1,000 ML IV SCH (04:40)
[2016-09-15 05:24] LABS: HEMATOCRIT 37.8 % (42.0-52.0); HEMOGLOBIN 11.9 g/dL (14.0-18.0); MCH 29.8 PG (27-31); MCHC 31.5 g/dL (33-37); MCV 94.5 FL (81-99); MPV 9.7 FL (7.4-10.4)
[2016-09-15 05:35] LABS: ALBUMIN 4.1 g/dL (3.5-5.0); CALCIUM 9.8 mg/dL (8.8-10.2); POTASSIUM 4.3 mmol/L (3.5-5.1)
[2016-09-15] MEDS: D5 NS 1,000 ML IV SCH ×2 (05:37→20:59)
[2016-09-15] MEDS: ZOSYN 2.25 GM/NS 50 ML IV SCH ×4 (05:37→23:17)
[2016-09-15 06:52] LABS: MAGNESIUM 2.1 mg/dL (1.5-2.7)
[2016-09-15 06:54] LABS: CALCIUM 9.6 mg/dL (8.8-10.2); POTASSIUM 4.6 mmol/L (3.5-5.1)
[2016-09-15] MEDS ORDERED: VANCOMYCIN 1 GM/NS 250 ML IV SCH (07:15)
[2016-09-15] MEDS ORDERED: NS 2,000 ML MISC PRN (07:21)
[2016-09-15] MEDS ORDERED: HEPARIN IV PRN (07:21)
[2016-09-15] MEDS ORDERED: TIGHT: 0.2 ML/HR MISC PRN (07:21)
[2016-09-15] MEDS: HEPARIN SUBQ SCH ×2 (10:02→20:50)
[2016-09-15] MEDS: SODIUM CHLORIDE 0.9% INJ SCH (10:11)
[2016-09-15] MEDS: PROTONIX IV SCH (10:11)
[2016-09-15] MEDS ORDERED: HEPARIN ONE (11:16)
[2016-09-15] MEDS ORDERED: NS 2,000 ML ONE (11:16)
--- NOTE | 2016-09-15 11:18 | PROGRESS NOTE ---
DATE: 09/15/2016 Today Mr. Goncalves continues to be remarkably altered. He is still not very responsive and he has been running some temperature. OBJECTIVE: Vital signs: Blood pressure is 116/96, pulse of 76, respiration is 18, temperature is 100 degrees just now. Of note patient has been running high 99s to 100s in temperature. General: Mr. Goncalves is a 66-year-old male. He was in bed, completely altered, nonverbal. He does not seem to be in any distress. HEENT: Mucosa is pink and moist. Anicteric. Acyanotic. Neck: Supple. Chest: Air entry bilaterally reduced, a few bibasilar crepitations. Cardiovascular: Regular rate and rhythm. Abdomen: Soft, is distended but nontender. Bowel sounds are present. OFFENSIVE COORDINATOR: Patient is very lethargic but is able to shout no to painful stimulation. Constantly has his eyes closed. He seems to have some nuchal rigidity. I am not quite sure if it is just his entire body. He is very noncooperative to physical exams. LABORATORY DATA: WBC is 5.62, hemoglobin is 11.9, platelet count of 149,000. Chemistry reviewed. Sodium is 143, potassium is 4.6, chloride is 101, bicarb is 19, gap is 23. It got improved a little bit but went back so I think it is probably from the renal disease. ASSESSMENT: 1. Altered mental status due to global encephalopathy. Etiology is unclear. Patient I was told was given a muscle relaxant which was the only thing new in his medications before he came to the hospital. However he has just been altered since he has been here and today is day 2 hospitalization. The patient is running some temperature and we are wondering if he has a meningitis. We are going to repeat the CT scan of the brain. Will consult Neurology and will probably do an LP this afternoon if he continues to run temperatures even on antibiotics. 2. Subclinical hypothyroidism stable. 3. End-stage renal disease. Patient on hemodialysis. 4. History of lung cancer (adenocarcinoma moderately differentiated). Pulmonary is primary. 5. Atrial fibrillation currently rate controlled. 6. Diabetes mellitus. 7. High anion gap metabolic acidosis which yesterday we thought it was probably DKA with some lactic acidosis and renal disease. So far I think the DKA is pretty much controlled. The patient continues to be acidotic which I think is due to the renal disease. The lactate has also improved with hydration. GENERAL PLAN: Patient continues to be altered. He is now running some fever. Blood cultures so far have been no growth 48 hours and urine culture was also no growth. The patient's chest x-ray on presentation was unremarkable except for cardiomegaly. We are going to repeat a CT scan of the brain. Will consult Neurology. Will plan to do an LP this afternoon if he continues to run temperature with altered mental status. I will discontinue the DKA protocol.
--- NOTE | 2016-09-15 11:28 | PROGRESS NOTE ---
DATE: 09/15/2016 SUBJECTIVE: Mr. Goncalves is no better today. He remains obtunded and really does not respond to my verbal or tactile stimuli. OBJECTIVE: Vital Signs: Blood pressure 83/61, heart rate 67, respiration 18, afebrile. Generally: He is an elderly man, chronically ill, thrashing in the bed. Moving constantly. Skin: Warm and dry. HEENT: Conjunctivae are pink. Neck: Neck veins are not obviously distended. Heart: Regular. No gallops or murmurs. Lungs: Have equal breath sounds. No crackles. Abdomen: Soft, nontender. Bowel sounds present. Extremities: Have no edema, clubbing or cyanosis. He does have some facial edema. LABORATORY DATA: None today. IMPRESSION: 1. Altered sensorium. Our assumption has been that is related to his polypharmacy. He has not had any improvement since admission. He did have a positive acetone collected yesterday. On this basis, he was moved to the [facility] and treated with insulin. There are new no new data for this morning. 2. End-stage kidney disease. He is due for dialysis today. 3. Anemia in target. 4. Marginal hypotension. This may limit ultrafiltration on dialysis.
[2016-09-15 12:38] LABS: CALCIUM 10.1 mg/dL (8.8-10.2); MAGNESIUM 2.3 mg/dL (1.5-2.7)
[2016-09-15 12:53] LABS: INR 1.25; PROTIME 13.3 Seconds (9.2-11.7)
--- NOTE | 2016-09-15 13:43 | CONSULTATION ---
DATE OF CONSULTATION: 09/15/2016 HISTORY OF PRESENT ILLNESS: Mr. Goncalves is 66 years old, and he was admitted a few days ago with reported altered mental state. He had temperature 100.0 maximum, otherwise afebrile. WBC count has been 1930-6679 range. He was reported lethargic with no focal findings. He had a CT scan of the head ordered today. Review of computer record shows previous brain imaging unremarkable, including April 2016 MRI scan. EEG April 2016 was generally slow. His home medications include oxycodone. Urine drug screen was positive for opiates this admission. He has a lengthy home medication list. I saw Mr. Goncalves in April 2016. He had a global encephalopathy then with features of delirium. That gradually resolved. There is reported past history, taken from his brother by phone, when I called last April, that Mr. Goncalves had chronic forgetfulness, personality change, poor attention. Transient exacerbation of this may have been attributed to medication changes at times in the past. There is a remote history of ethanol abuse, but I am not sure about recent use. There is remote history of regular alprazolam dosing but I am not sure about recent benzodiazepines. PHYSICAL EXAMINATION: Neurologic: On exam now, Mr. Goncalves is undergoing hemodialysis. He was sleepy, briefly alert with stimulation, not attentive to most of my requests for exam. Tone is equal in the limbs. He demonstrated some voluntary movement in each limb with no definite focal findings. He was not attentive to visual field testing. Extraocular movements are full laterally with passive head turning. He was not attentive to sensory and proprioception testing in the limbs. I did not ask him to stand. Head: Is unremarkable. Neck: Supple without meningismus. He did not speak. IMPRESSION: Global encephalopathy, lethargy. Explanation is not clear to me. He has some laboratory findings including presenting with sodium 128 which has been corrected, BUN elevated a little beyond baseline which has improved, but nothing that generally would be associated with encephalopathy. If he has been using benzodiazepines and/or ethanol again, withdrawal could account for some mental changes. History does not sound like seizure. I suspect that he has a baseline cognitive impairment syndrome, gradually progressing with acute/subacute exacerbation associated with toxic and/or metabolic changes. I will see what the CT scan ordered for today shows. No urgent suggestion right now from a neurologic standpoint. [facility]
[2016-09-15] MEDS: 1/2 NS 1,000 ML IV SCH (14:36)
--- NOTE | 2016-09-15 14:53 | Diag Imaging Result Document ---
PROCEDURE NAME: HEAD W/O CONTRAST - 09/15/2016 CT OF THE HEAD WITHOUT CONTRAST: FINDINGS: There are calcifications in both internal carotid arteries. There are calcifications in the basal ganglia bilaterally. There is some patient motion. Compared to 09/13/2016, there has been no appreciable change. IMPRESSION: No evidence of acute disease.
[2016-09-15] MEDS: HUMULIN R SUBQ SCH ×2 (16:16→20:50)
[2016-09-15 17:22] LABS: CALCIUM 9.7 mg/dL (8.8-10.2); MAGNESIUM 1.9 mg/dL (1.5-2.7)
[2016-09-15 18:41] LABS: URINE SOURCE CATH
[2016-09-15 18:45] LABS: BILIRUBIN URINE NEGATIVE (NEGATIVE); BLOOD URINE MODERATE (NEGATIVE); COLOR YELLOW; GLUCOSE URINE 1000 mg/dL (NEGATIVE); LEUKOCYTES URINE LARGE (NEGATIVE); NITRITE URINE NEGATIVE (NEGATIVE); PH URINE 6.5; PROTEIN URINE 300 mg/dL (NEGATIVE); SP GRAVITY URINE 1.012; TURBIDITY URINE HAZY (CLEAR); URINE MICRO REVIEW NEEDED? YES; UROBILINOGEN URINE NORMAL (NORMAL)
[2016-09-15 18:51] LABS: UR EPITHELIAL CELLS <10 /HPF (<10); URINE BACTERIA NEGATIVE /HPF; URINE CULTURE NEEDED? YES; URINE WBC TNTC /HPF (<10)
[2016-09-16] MEDS ORDERED: APRESOLINE IV ONE (01:22)
[2016-09-16] MEDS: ZOSYN 2.25 GM/NS 50 ML IV SCH ×4 (04:40→23:20)
[2016-09-16] MEDS ORDERED: LABETALOL IV ONE (05:07)
[2016-09-16 05:54] LABS: HEMATOCRIT 37.9 % (42.0-52.0); HEMOGLOBIN 11.8 g/dL (14.0-18.0); MCH 29.9 PG (27-31); MCHC 31.1 g/dL (33-37); MCV 95.9 FL (81-99); MPV 10.4 FL (7.4-10.4); RBC 3.95 XMIL (4.7-6.1)
[2016-09-16 05:58] LABS: CALCIUM 9.9 mg/dL (8.8-10.2)
[2016-09-16] MEDS: HUMULIN R SUBQ SCH ×4 (06:15→21:03)
[2016-09-16] MEDS ORDERED: LANTUS SUBQ SCH (09:00)
[2016-09-16] MEDS: HEPARIN SUBQ SCH ×2 (09:01→21:07)
[2016-09-16] MEDS ORDERED: INSULIN PEN NEEDLES ONE (09:37)
[2016-09-16] MEDS: PROTONIX IV SCH (11:11)
[2016-09-16] MEDS: SODIUM CHLORIDE 0.9% INJ SCH (11:11)
--- NOTE | 2016-09-16 11:18 | PROGRESS NOTE ---
DATE: 09/16/2016 SUBJECTIVE: Today Mr. Goncalves referred to be doing a whole lot better. He is more conversational, and he is actually expressing wishes to wanting to eat. OBJECTIVE: Vital signs: Blood pressure is 143/56, pulse of 72, respirations 18 , temperature is 100.6 degrees. Of note this is the first since yesterday. General exam: Mr. Goncalves is a 66-year- old male. He was in bed in 2 point restraint. HEENT: Mucosa is pink and moist. Anicteric. Acyanotic. Neck: Supple. Chest: Good air entry bilateral. No crepitations. Cardiovascular: Regular rate and rhythm. Abdomen: Soft. Mildly distended, but nontender. Bowel sounds are present. MANAGER PART: Patient is kind of still drowsy, but is easily arousable and conversational. Follows commands. LABORATORY DATA: WBC 6.48, hemoglobin 11.8, platelet count of 122. Chemistry reviewed: Sodium 142, potassium 4.0, chloride 95, bicarbonate is 20, anion gap is 25, creatinine 4.1, glucose is up to 314. ASSESSMENT: 1. Altered mental status due to global encephalopathy. Patient seems to be progressively doing better. Mentation is improving. I think this is probably due to medication side effects. We withheld the lumbar puncture from yesterday. Patient continues to be slightly afebrile, but seems to be better than yesterday. 2. Subclinical hypothyroidism. We have increased the dose of the levothyroxine. 3. End-stage renal disease on hemodialysis. 4. History of lung cancer (adenocarcinoma moderately differentiated). Pulmonary is the primary. 5. Atrial fibrillation, currently rate controlled. 6. Diabetes mellitus is still uncontrolled. Will start the patient on glargine , and will continue with the sliding scale. 7. High anion gap metabolic acidosis, which we think is multifactorial, including chronic kidney disease and also possible diabetic ketoacidosis. GENERAL PLAN: The patient is doing a whole lot better. We are going to continue with the current antibiotics. I have started him on Lantus to help with the glucose control. We are going to start feeding the patient as he tolerates, and we will follow up with further recommendations from nephrology and neurology. [facility]
[2016-09-16] MEDS: D5 NS 1,000 ML IV SCH ×2 (12:17→23:16)
[2016-09-16] MEDS ORDERED: HUMULIN R 100 UNIT in NS 100 ML IV SCH (17:45)
[2016-09-16 21:56] LABS: CALCIUM 10.1 mg/dL (8.8-10.2); POTASSIUM 3.6 mmol/L (3.5-5.1)
[2016-09-17] MEDS: D50W SYRINGE ONE (00:28)
[2016-09-17] MEDS ORDERED: D50W SYRINGE IV PRN (00:34)
[2016-09-17] MEDS: ZOSYN 2.25 GM/NS 50 ML IV SCH ×4 (04:30→23:57)
[2016-09-17 05:28] LABS: MANUAL DIFF NEEDED? NO
[2016-09-17 05:33] LABS: BASO% 1.1 % (0.0-0.8); EOS# 0.06 X1000 (0.0-0.7); EOS% 1.4 % (0.0-10.0); HEMATOCRIT 34.7 % (42.0-52.0); HEMOGLOBIN 10.9 g/dL (14.0-18.0); LYMPH# 1.05 X1000 (1.2-3.4); MCH 29.7 PG (27-31); MCHC 31.4 g/dL (33-37); MCV 94.6 FL (81-99); MONO# 0.42 X1000 (0.11-0.59); MONO% 9.6 % (1.7-9.3); MPV 9.9 FL (7.4-10.4); NEUT% 63.9 % (42.2-75.2); PLT 113 X1000 (130-400); RBC 3.67 XMIL (4.7-6.1)
[2016-09-17 05:47] LABS: ALBUMIN 3.4 g/dL (3.5-5.0); CALCIUM 9.6 mg/dL (8.8-10.2); POTASSIUM 3.6 mmol/L (3.5-5.1); TOTAL BILIRUBIN 0.82 mg/dL (0.20-1.00); TOTAL PROTEIN 6.1 g/dL (6.3-8.3)
[2016-09-17] MEDS: HUMULIN R SUBQ SCH ×4 (06:02→20:53)
[2016-09-17] MEDS: HEPARIN SUBQ SCH ×2 (08:50→20:36)
--- NOTE | 2016-09-17 11:10 | PROGRESS NOTE ---
DATE: 09/17/2016 SUBJECTIVE: Today, Mr. Goncalves referred to be doing a whole lot better. He was more alert and conversational. He was even requesting to get him up to chair. OBJECTIVE: Vital Signs: Blood pressure is 166/82, pulse of 68, respirations are 20, temperature is 98.5 degrees. General Examination: Mr. Goncalves is a 66-year-old, male. He is in bed, no distress. HEENT: Mucosa is pink and moist. Anicteric and acyanotic. Neck: Supple. Chest: Good air entry bilaterally. No crepitations. No rhonchi. Cardiovascular: Regular rate and rhythm. Abdomen: Soft, nontender. Extremities: No pedal edema. Patient is able to move his extremities. PITCH WORKER: Alert and oriented. Laboratory Data: WBC is 4.37, hemoglobin is 10.9, platelet count of 113,000. Chemistry is reviewed. Creatinine is 5.2 which is consistent with kidney issues, bicarb is 22 with a gap of 20. The patient had a hypoglycemic episode yesterday but is back to normal. The liver functions have also crept up a little bit. ASSESSMENT: 1. Altered mental status due to global encephalopathy. We think this is probably related to medication side effects. However, patient was also a little acidotic so we have been treating him on and off for diabetic ketoacidosis. Anyway, the mentation has improved remarkably since yesterday. 2. Subclinical hypothyroidism. The patient's TSH is actually less than 10. Does not have cholesterol elevation so will prefer to not start him on any for now. We would advise that he repeat the TSH and free T4 in about a month to two, probably do a TPO and follow up with his primary care physician. 3. Endstage renal disease, on hemodialysis. 4. History of lung cancer (adenocarcinoma, moderately differentiated) in the left main. Pulmonary and hematology/oncology on board. 5. Atrial fibrillation, currently rate controlled. 6. Diabetes mellitus. The patient was having episode of hypoglycemia last night. We are going to hold off on the insulin glargine and only use sliding scale and evaluate a little later. 7. High anion gap metabolic acidosis. This is multifactorial, mainly from chronic kidney disease but we also thought it could potentially be diabetic ketoacidosis and also patient had lactic acidosis, elevated lactic acid a couple days back. However, all of these have been improved and patient is getting dialysis for his renal disease. 8. Mildly elevated transaminitis. Unsure of etiology. We will keep an eye on that. GENERAL PLAN: We are going to put PT and also get a lift team to help the patient up to chair. We will start the patient on a renal diet today. The patient refers to have had a C-spine injury and surgery in the past. Subsequent to that, he has not been able to walk. Seems to be paraparetic and [facility].
[2016-09-17] MEDS: SODIUM CHLORIDE 0.9% INJ SCH (11:58)
[2016-09-17] MEDS: PROTONIX IV SCH (11:58)
[2016-09-18] MEDS: ZOSYN 2.25 GM/NS 50 ML IV SCH (04:12)
[2016-09-18 05:45] LABS: BASO% 0.9 % (0.0-0.8); EOS# 0.02 X1000 (0.0-0.7); EOS% 0.3 % (0.0-10.0); HEMATOCRIT 38.4 % (42.0-52.0); HEMOGLOBIN 12.3 g/dL (14.0-18.0); IMM GRAN# 0.03 X1000 (0.0-0.04); IMM GRAN% 0.5 % (0.0-0.5); LYMPH# 1.45 X1000 (1.2-3.4); LYMPH% 21.9 % (20.5-51.1); MANUAL DIFF NEEDED? YES; MCH 30.4 PG (27-31); MONO# 0.82 X1000 (0.11-0.59); MONO% 12.4 % (1.7-9.3); MPV 10.8 FL (7.4-10.4); PLT 93 X1000 (130-400); RBC 4.04 XMIL (4.7-6.1)
[2016-09-18 06:10] LABS: CALCIUM 9.8 mg/dL (8.8-10.2); POTASSIUM 4.8 mmol/L (3.5-5.1)
[2016-09-18] MEDS: HUMULIN R SUBQ SCH ×4 (06:24→21:01)
[2016-09-18 07:08] LABS: LYMPHS 14 % (21-51); MONO 6 % (1-9)
[2016-09-18] MEDS ORDERED: HEPARIN ONE (08:18)
[2016-09-18] MEDS ORDERED: NS 2,000 ML ONE (08:18)
[2016-09-18] MEDS ORDERED: NS 2,000 ML MISC PRN (08:20)
[2016-09-18] MEDS ORDERED: TIGHT: 0.2 ML/HR MISC PRN (08:20)
--- NOTE | 2016-09-18 10:53 | PROGRESS NOTE ---
DATE: 09/18/2016 SUBJECTIVE: Patient currently undergoing hemodialysis. He is awake and alert and is able to tell me that he is in the hospital and that he remembers receiving dialysis while he has been here. He is still confused to date. OBJECTIVE: Vital Signs: Temperature 100.9 degrees, pulse 71, respiratory rate 20, blood pressure 187/83. Intake 1.4 L. Output not measured. PHYSICAL EXAMINATION: General: This is an elderly gentleman resting in bed. He is awake and alert. Calm and cooperative. HEENT: Normocephalic, atraumatic. He has some orbital edema, some facial edema. Conjunctivae are pink. His oral mucosa is moist. Neck: Supple. He does have JVD noted in a reclined position. Trachea midline. Cardiovascular: Regular rate rhythm without murmur or gallop. Pulmonary: He has equal excursion. He has no rales or rhonchi. No wheezes. He is on 2 L nasal cannula. Abdomen: Soft, positive bowel sounds. : Not inspected. Minimal void with hemodialysis. Extremities: No clubbing, cyanosis or edema. He is moving his extremities. Integumentary: Skin is warm and dry without other rash or lesion. LAB DATA: WBC of 6.6, hemoglobin 12.3, sodium 138, potassium 4.8, CO2 19, BUN 36, creatinine 6.4, calcium 9.8. Platelet count 93,000. ASSESSMENT AND PLAN: 1. End-stage renal disease management. Today is his routine dialysis day. We will dialyze him on a 2 K bath/UF removal to dry weight/four hour treatment. 2. Altered sensorium. This has been improving over the weekend and blood sugars have remained elevated. He has remained on insulin. Continue to monitor. 3. Electrolytes. See #1 for plan. 4. Anemia, stable. 5. Blood pressure improved. Seen, data reviewed, discussed with Sue Valdez on 09/18/15. I agree with the above assessment and plan of care. rg Dictated by SANDOR Grimaldo for Nathanael Kurtz MD [facility]
[2016-09-18] MEDS: HEPARIN SUBQ SCH ×2 (13:51→21:01)
[2016-09-18] MEDS: PROTONIX IV SCH (13:53)
[2016-09-18] MEDS ORDERED: NEURONTIN PO PRN (14:34)
--- NOTE | 2016-09-18 16:44 | PROGRESS NOTE ---
DATE: 09/18/2016 SUBJECTIVE: Today Mr. Goncalves referred to be doing a whole lot better. He is more alert and oriented. OBJECTIVE: Vital signs: Blood pressure is 188/77, pulse of 66, respirations 18 , temperature is 99.7 degrees. General: Mr. Goncalves 66-year-old male. He is in bed, did not seems to be in any distress. He was actually having dialysis at the time of the encounter. Chest: Good air entry bilaterally. No crepitations. No rhonchi. Cardiovascular: Regular rate and rhythm. No murmurs, no rubs. No gallops. Abdomen: Soft, nontender. Extremities: No pedal edema. NETWORK SERVICES PROJECT MANAGER: Patient is now more alert, conversational, follows commands. LABORATORY DATA: WBC is 6.62, hemoglobin is 12.3, platelet count 93,000. Sodium 138, potassium 4.8, chloride 99, bicarb is 19. ASSESSMENT: 1. Altered mental status on presentation due to global encephalopathy. I think this was mainly due to medication change that the patient was started on that created his altered mentation. Over the course of the hospital stay he has been doing a whole lot better. Mentation has improved. 2. Subclinical hypothyroidism. TSH is less than 10. We would not supplement this for now. Repeat TFTs in 1 month. 3. End-stage renal disease on hemodialysis. 4. History of lung cancer (adenocarcinoma) moderately differentiated in the left main bronchus. Patient normally follows Hematology/Oncology. 5. Atrial fibrillation currently rate controlled. 6. Diabetes mellitus. 7. Mild transaminitis. This is improved. OUR GENERAL PLAN: Mr. Goncalves a 66-year-old gentleman who was brought into the hospital. He is a resident of [facility]. Was brought in because of altered mental status which to the best of our understanding was because his muscle relaxant was introduced into his medications and subsequently a day after he became extremely altered. During the hospital stay his acetone was a little high so he was also treated for possible DKA. Over the course of the days his mentation has significantly improved. He was initially started on IV antibiotics because he was doing some fevers. Blood cultures have all been negative. A urine culture initially was negative. A subsequent urine culture showed enterococcal faecalis 50,000 to 60,000 which I think is not significant especially in a patient that is end-stage renal and makes minimal urine. I have therefore discontinue the antibiotics. I am going to observe the patient 1 more day. If his mentation continues to be lucid and he remains afebrile we will discharge him to his assisted. I have also restarted some of his medications especially the atrial fibrillation and the blood pressure medications because his blood pressure is not controlled. [facility]
[2016-09-18] MEDS: ASPIRIN PO SCH (16:51)
[2016-09-18] MEDS: IMDUR PO SCH (16:51)
[2016-09-18] MEDS: ROBAXIN PO SCH (16:52)
[2016-09-18] MEDS: RENAGEL PO SCH (17:48)
[2016-09-18] MEDS: NEURONTIN PO SCH (21:01)
[2016-09-19] MEDS ORDERED: TYLENOL PO PRN (02:15)
[2016-09-19] MEDS ORDERED: MORPHINE IV PRN (03:56)
[2016-09-19 05:04] LABS: MANUAL DIFF NEEDED? NO
[2016-09-19 05:10] LABS: BASO% 0.6 % (0.0-0.8); EOS# 0.01 X1000 (0.0-0.7); EOS% 0.2 % (0.0-10.0); HEMATOCRIT 35.2 % (42.0-52.0); HEMOGLOBIN 10.8 g/dL (14.0-18.0); IMM GRAN# 0.02 X1000 (0.0-0.04); IMM GRAN% 0.4 % (0.0-0.5); LYMPH# 0.72 X1000 (1.2-3.4); MCH 29.3 PG (27-31); MCHC 30.7 g/dL (33-37); MCV 95.7 FL (81-99); MONO# 0.46 X1000 (0.11-0.59); MONO% 9.6 % (1.7-9.3); MPV 10.7 FL (7.4-10.4); NEUT% 74.2 % (42.2-75.2); PLT 88 X1000 (130-400); RBC 3.68 XMIL (4.7-6.1)
[2016-09-19] MEDS: HUMULIN R SUBQ SCH ×2 (06:21→11:47)
[2016-09-19] MEDS: ROBAXIN PO SCH ×2 (06:21→11:46)
[2016-09-19 06:42] LABS: CALCIUM 9.2 mg/dL (8.8-10.2); POTASSIUM 4.5 mmol/L (3.5-5.1)
[2016-09-19] MEDS: NEURONTIN PO SCH (08:38)
[2016-09-19] MEDS: IMDUR PO SCH (08:38)
[2016-09-19] MEDS: ASPIRIN PO SCH (08:38)
[2016-09-19] MEDS: HEPARIN SUBQ SCH (08:38)
[2016-09-19] MEDS: RENAGEL PO SCH ×2 (08:39→14:17)
[2016-09-19] MEDS ORDERED: CORDARONE PO SCH (09:00)
[2016-09-19] MEDS ORDERED: ZINC SULFATE PO SCH (09:00)
--- NOTE | 2016-09-19 09:05 | PROGRESS NOTE ---
DATE: 09/19/2016 SUBJECTIVE: Patient currently resting in bed. He is asleep but arouses easily to verbal stimuli. He is a little bit confused this morning but is cooperative. OBJECTIVE: Vital Signs: Temperature 98.4 degrees, pulse 64, respiratory rate 20, blood pressure 170/69, intake 840 mL, output 4 L on dialysis. Physical Examination: General: This is an elderly gentleman resting in bed. He is awake and alert, oriented to person. He is calm and cooperative, and reorients easily to placed and time, situation. HEENT: Normocephalic, atraumatic. He continues with some trace facial edema. His oral mucosa is moist. Neck: Supple. Some trace JVD lying flat. Trachea midline. Cardiovascular: Regular rate and rhythm. There is no murmur or gallop appreciated. Pulmonary: Equal excursion. He is on 2 L nasal cannula. He has no increased work of breathing noted and is clear bilaterally. Abdomen: Soft. He has positive bowel sounds. : Not inspected. He has minimal void with hemodialysis assist. Extremities: No clubbing, cyanosis, or edema. He is moving all extremities. Integumentary: Skin is warm and dry. There is no other rash or lesion. Lab Data: WBC of 4.7, hemoglobin 10.8, hematocrit 35.2, and platelet count of 88,000. Sodium 134, potassium 4.5, CO2 of 16, BUN 30, creatinine 4.5, calcium 9.2. ASSESSMENT AND PLAN: 1. End-stage renal disease management. Yesterday was his routine dialysis day. He had 4 L ultrafiltrate removed. We will plan to dialyze him tomorrow as per his routine. 2. Altered sensorium. He has a little bit worsening confusion this morning than yesterday when we saw him. He reorients easily. Continue to monitor. Followed by primary. 3. Electrolytes, acid-base balance, anemia. These are stable. 4. Blood pressure improved. Continue home medications and dialysis for fluid volume control. Consider restarting his metoprolol. Seen, data reviewed, discussed with Sue Valdez on 09/19/16. I agree with the above assessment and plan of care. rg Dictated by SANDOR Grimaldo for Nathanael Kurtz MD [facility]
--- NOTE | 2016-09-19 09:35 | Diag Imaging Result Document ---
PROCEDURE NAME: CHEST-1 VIEW - 09/19/2016 PORTABLE CHEST X-RAY: COMPARISON: 09/13/2016. FINDINGS: There is a stable oval-shaped mass in the right lung base. Stable cardiomegaly and pulmonary vascular congestion. There is decrease in the ill-defined interstitial infiltrates/pulmonary edema. There is also improvement in infiltrate at the lingula as seen by better visualization of the left heart border. IMPRESSION: Improvement in the ill-defined infiltrates and/or pulmonary edema. Stable right basilar pulmonary mass.
[2016-09-19 10:36] VITALS: BP 133/66
[2016-09-19] MEDS: PROTONIX IV SCH (11:46)
[2016-09-19] MEDS: SODIUM CHLORIDE 0.9% INJ SCH (11:46)
--- NOTE | 2016-09-19 13:43 | DISCHARGE SUMMARY ---
ADMISSION DATE: 09/13/2016 DISCHARGE DATE: CONSULTATION: 1. Nathanael Kurtz MD - Nephrology. 2. Bismark Becker III, MD - Neurology. PERTINENT PROCEDURES: 1. Head CT showed no hemorrhage. Mild atrophy with mild microvascular ischemic changes. 2. Followup chest CT showed no evidence of acute disease. DISCHARGE DIAGNOSIS: 1. Altered mental status on presentation data global encephalopathy secondary to medication changes. Mentation improved. 2. Subclinical hypothyroidism. TSH was less than 10. Holding supplementation for now. We will need repeat in 1 month. 3. End-stage renal disease, on hemodialysis. 4. History of lung cancer, adenocarcinoma moderately differentiated, in the left main bronchitis, followed by Hematology/Oncology. 5. Atrial fibrillation, rate controlled. 6. Diabetes mellitus. 7. Mild transaminitis, improved. HISTORY OF PRESENT ILLNESS: Briefly, Mr. Goncalves is a 66-year-old male, who is a long- term resident at [facility] in [place]. He was brought into the ED for altered mental status. To the best of our understanding, it was because his muscle relaxant was introduced into his medications and subsequently a day after he became extremely altered during his hospital stay his acetone was a little high so he was treated for possible DKA. Over the course of the days, his mentation significantly improved. Initially started on IV antibiotics related to fevers. Ultimately his blood cultures have been negative, along with negative urine culture. A subsequent urine culture did show an enterococcal faecalis 50,000 to 60,000, which was not significant, especially in a patient end-stage renal disease who makes minimal urine. Therefore his antibiotics were discontinued. The patient was observed one more day to make sure that his mentation continued to be elusive. He was also afebrile. The patient will be discharged back to [facility] today. PHYSICAL EXAMINATION: Vital Signs: Vital signs at time of discharge, temperature is 97.8 degrees, heart rate 64, respirations 20, blood pressure is 133/66, O2 is 100% on room air. DISCHARGE MEDICATIONS: Please see MAR as per Dr. Olivares. DISCHARGE DIET: Diabetic. FOLLOWUP: The patient is being discharged back to [facility] in [place]. Patient can return to the ED for any worsening of symptoms. DISCHARGE TIME: Greater than 30 minutes. Dictated by SANDOR Deshpande for Paco Olivares MD
== END 2016-09-19 15:50 | DRG 91 ==
LOC: EDBD → ED 06:30 → EDIPHOLD 11:03 → 3N 15:58 → 3S 09-14 14:26 → DIRADM 09-15 09:59 → 3S 09-15 10:06
PROVIDERS: ATTEND Internal Medicine
PROC: 5A1D60Z (ICD-10-PCS; principal; 2016-09-13)
DX: G92 Toxic encephalopathy (principal); E13.10 Other specified diabetes mellitus with ketoacidosis without coma; I12.0 Hypertensive chronic kidney disease with stage 5 chronic kidney disease or end stage renal disease; N18.6 End stage renal disease; I48.0 Paroxysmal atrial fibrillation; E11.22 Type 2 diabetes mellitus with diabetic chronic kidney disease; E87.1 Hypo-osmolality and hyponatremia; C34.02 Malignant neoplasm of left main bronchus; E11.42 Type 2 diabetes mellitus with diabetic polyneuropathy; E11.51 Type 2 diabetes mellitus with diabetic peripheral angiopathy without gangrene; E11.649 Type 2 diabetes mellitus with hypoglycemia without coma; E87.70 Fluid overload, unspecified; E87.5 Hyperkalemia; E11.319 Type 2 diabetes mellitus with unspecified diabetic retinopathy without macular edema; I25.10 Atherosclerotic heart disease of native coronary artery without angina pectoris; D63.8 Anemia in other chronic diseases classified elsewhere; E55.9 Vitamin D deficiency, unspecified; Z79.899 Other long term (current) drug therapy; Z79.82 Long term (current) use of aspirin; Z79.4 Long term (current) use of insulin; Z99.2 Dependence on renal dialysis; Z87.891 Personal history of nicotine dependence; Z95.1 Presence of aortocoronary bypass graft; Z90.49 Acquired absence of other specified parts of digestive tract; T48.205A Adverse effect of unspecified drugs acting on muscles, initial encounter
CPT/HCPCS: 36415; 70450; 71010; 80048; 80053; 80061; 80069; 81001; 82009; 82140; 82550; 82607; 82728; 82746; 82805; 82948; 83605; 83735; 84100; 84439; 84443; 84484; 85025; 85027; 85610; 85730; 87040; 87077; 87088; 87186; 93005; C9113; G0480; J0360; J1644; J1815; J2060; J2270; J2543; J3370; J3486; J7030; J7040; J7042; P9612; 80324; 80345; 80346; 80349; 80353; 80358; 80361; 80365; 83992; S0164

== ENCOUNTER 2016-09-20 21:07 | Inpatient (IN) | payer OTHER ==
--- NOTE | 2016-09-20 21:29 | PROVIDER DOCUMENTATION ---
HPI-General Adult - General Source: EMS Unable to obtain history due to:: urgency (AMS) - History of Present Illness -Gen Adult Nature of Presenting Problems: Per EMS, pt was found to have altered mental status around 1800 tonight. FSBS was 514 which is usually his normal. On arrival to ED pts fever was 100.2. Pt is un-arousable. Severity: reports: severe Onset/Duration: reports: 1-3 hours ago Timing: reports: still present Context/Activities at Onset: reports: none Associated Symptoms: reports: fever/chills Similar Symptoms Previously?: No <Nicole Tam - Last Filed: 09/20/16 23:43> <Seb Chang - Last Filed: 09/21/16 00:01> - General Chief Complaint: Altered Mental Status Stated Complaint: ams Time Seen by Provider: 09/20/16 21:22 Allergies/Adverse Reactions: Patient Allergies Allergy/AdvReac Type Severity Reaction Status Date / Time erythromycin base Allergy Unknown Verified 09/20/16 22:02 erythromycin lactobionate * Allergy RASH Verified 09/20/16 22:02 [From Erythrocin] iodine Allergy RASH Verified 09/20/16 22:02 niacin Allergy RASH Verified 09/20/16 22:02 Oangrkl-Svr-Xtc Reductase Allergy Unknown Verified 09/20/16 22:02 Inhibitor adhesive AdvReac Unknown Verified 09/20/16 22:02 povidone-iodine AdvReac RASH Verified 09/20/16 22:02 [From Betadine] soap * [From Betadine] AdvReac RASH Verified 09/20/16 22:02 Home Medications: Home Medication List Medication Instructions Recorded Confirmed Last Taken Type Docusate Sodium [Stool Softener] 100 mg PO QAM 10/01/14 09/20/16 09/20/16 08:00 History Famotidine [Acid Control] 20 mg PO DAILY PRN PRN 10/01/14 09/20/16 03/09/16 22: 00 History Garlic 500 mg PO BID 10/01/14 09/20/16 09/20/16 17:00 History Calcitriol 0.25 mcg PO MOWEFR 10/07/14 09/20/16 09/20/16 08:00 History Sorbitol 30 ml PO DAILY PRN PRN #0 udc 03/17/16 09/20/16 Unknown Rx Albuterol 2.5MG/Ipratrop 0.5MG 3 ml INH Q2H PRN PRN #0 neb 03/24/16 09/20/16 Unknown Rx [Duoneb (A & A)] Cilostazol 100 mg PO BID 04/19/16 09/20/16 09/20/16 17:00 History Sevelamer [Renagel] 800 mg PO TID CC #0 tablet 04/27/16 09/20/16 09/20/16 20:00 Rx Baclofen 10 mg PO TID 09/13/16 09/20/16 09/20/16 20:00 History Cholecalciferol (Vit D3) [Vitamin 1,000 unit PO QAM 09/13/16 09/20/16 09/20/16 08:00 History D3] Ezetimibe [Zetia] 10 mg PO HS 09/13/16 09/20/16 09/19/16 History Insulin Detemir [Levemir] 17 unit SUBQ QA 09/13/16 09/20/16 09/20/16 08:00 History Insulin Lispro [Humalog] 5 unit SQ TID AC 09/13/16 09/20/16 09/20/16 17:00 History Oxycodone HCl 10 mg PO Q6H PRN PRN 09/13/16 09/20/16 Unknown History Zinc Sulfate 220 mg PO QA 09/13/16 09/20/16 09/20/16 08:00 History Acetaminophen 625 mg PO Q4HR PRN 09/20/16 09/20/16 Unknown History Amiodarone [Cordarone] 200 mg PO QA 09/20/16 09/20/16 09/20/16 08:00 History Aspirin 81 mg PO QAM 09/20/16 09/20/16 09/20/16 08:00 History Gabapentin 300 mg PO PRN PRN 09/20/16 09/20/16 Unknown History Isosorbide Mononitrate E.r. [Imdur] 30 mg PO QAM 09/20/16 09/20/16 09/20/16 08: 00 History Magnesium Hydroxide [Milk of 30 ml PO DAILY PRN PRN 09/20/16 09/20/16 Unknown History Magnesia] Metoprolol Succinate E.r. [Toprol 25 mg PO QAM 09/20/16 09/20/16 09/20/16 08:00 History Xl] Polyethylene Glycol 3350 [Miralax] 17 gm PO WLUNCH 09/20/16 09/20/16 Unknown History Review of Systems - Adult - REVIEW OF SYSTEMS - ADULT ROS:: unobtainable per condition Constitutional: reports: fever Eyes: reports: no symptoms reported Ears, Nose, Mouth & Throat: reports: no symptoms reported Cardiovascular: reports: no symptoms reported Respiratory: reports: no symptoms reported Gastrointestinal: reports: no symptoms reported Genitourinary: reports: no symptoms reported Musculoskeletal: reports: no symptoms reported Integumentary: reports: no symptoms reported Neurological: reports: no symptoms reported Psychiatric: reports: no symptoms reported Endocrine: reports: no symptoms reported Hematologic/Lymphatic: reports: no symptoms reported Allergic/Immunologic: reports: no symptoms reported All Other Systems: Reviewed and Negative <Nicole Tam - Last Filed: 09/20/16 23:43> Past History - Adult - PAST MEDICAL HISTORY-ADULT Review of Records: reports: Nursing Assessment Review, Medications Reviewed Major Childhood Illnesses: reports: denies history Cardiovascular: reports: HTN Genitourinary: reports: dialysis, ESRD Endocrine/Immune: reports: Diabetes Other Conditions: reports: denies history - PRIOR SURGERIES/PROCEDURES Surgical/Procedure History: reports: other (cataract;) - PRIOR HOSPITALIZATIONS Prior Hospitalizations: reports: none - IMMUNIZATION STATUS Childhood Immunizations: See Nurse Assessment Flu Vaccine: See Nurse Assessment - FAMILY HISTORY Family History: reviewed, not pertinent - SOCIAL HISTORY Smoking: non-smoker Substance Use: none/never Alcohol Use Frequency: never <Nicole Tam - Last Filed: 09/20/16 23:43> Physical Exam-General - PHYSICAL EXAM-ADULT Exam Limited by: unarousable Initial Vital Signs Reviewed: Yes - CONSTITUTIONAL General Appearance: other (unarousable to painful or verbal stemuli) - RESPIRATORY Respiratory: lungs clear, normal breath sounds - CARDIOVASCULAR Cardiovascular: regular rate, rhythm - GASTROINTESTINAL (ABDOMEN) Abdominal Exam: soft - MUSCULOSKELETAL Extremity: no pedal edema - SKIN Integumentary: other (right extremity cold to touch. pulsitile flow noted on x- ray) <Nicole Tam - Last Filed: 09/20/16 23:43> Progress - PLAN OF CARE/RESULTS Progress/Plan/Lab Results: plan of care: imaging, labs, medications, EKG Orders Category Date Time Status Cardiac Monitoring DIRECTED Care 09/20/16 21:23 Active IV Insertion ORDERED Care 09/20/16 21:23 Active Notify MD of + Sepsis Screen NOW Care 09/20/16 21:23 Active ABDOMEN/PELVIS W/O CONTRAST [CT] Stat Exams 09/20/16 22:38 Taken CHEST-PORTABLE [RAD] Stat Exams 09/20/16 21:25 Taken HEAD W/O CONTRAST [CT] Stat Exams 09/20/16 21:24 Taken ABG [RESP] Routine Lab 09/20/16 21:45 Completed BLOOD CULTURE [BLDCUL] Stat Lab 09/20/16 22:25 Results CBC WITH DIFF [HEME] Stat Lab 09/20/16 21:10 Completed CK PROFILE [SP CHEM] Stat Lab 09/20/16 21:10 Completed COMPREHENSIVE METABOLIC PANEL [CHEM] Stat Lab 09/20/16 21:10 Completed LACTATE, PLASMA [CHEM] Stat Lab 09/20/16 22:25 Completed LACTATE, PLASMA [CHEM] Timed Lab 09/21/16 01:20 Uncollected LIPASE [CHEM] Stat Lab 09/20/16 21:10 Completed MAGNESIUM [CHEM] Stat Lab 09/20/16 21:10 Completed PROTIME WITH INR [COAG] Stat Lab 09/20/16 21:10 Completed PTT [COAG] Stat Lab 09/20/16 21:10 Completed TROPONIN T Stat Lab 09/20/16 21:10 Completed URINALYSIS W/POSS RFLX CULT [URINALYSIS] Stat Lab 09/20/16 22:55 Ordered 0.9% Sodium Chloride Inj [Ns] 1,000 ml Med 09/20/16 21:55 Discontinued .ROUTE As Directed 0.9% Sodium Chloride Inj [Ns] 1,000 ml Med 09/20/16 21:54 Discontinued IV 999 mls/hr Acetaminophen [Ofirmev 1000 mg/Isotonic Soln] 100 ml Med 09/20/16 21:34 Discontinued IV NOW Piperacil/Tazobact 2.25 gm/Ns [Zosyn 2.25 gm/Ns] 50 ml Med 09/20/16 23:40 Active IV NOW Vancomycin 1 gm/Ns 250 ml Med 09/20/16 23:39 Active IV NOW Laboratory Tests 09/20/16 09/20/16 09/20/16 21:10 21:10 21:10 WBC 4.22 L RBC 4.39 L Hgb 12.9 L D Hct 40.5 L MCV 92.3 MCH 29.4 MCHC 31.9 L RDW Std Deviation 14.1 Plt Count 105 L MPV 11.4 H Immature Gran % (Auto) 0.0 Neut % (Auto) 73.2 Lymph % (Auto) 12.3 L Stevens % (Auto) 13.5 H Eos % (Auto) 0.5 Baso % (Auto) 0.5 Immature Gran # (Auto) 0.00 Neut # (Auto) 3.09 Lymph # (Auto) 0.52 L Stevens # (Auto) 0.57 Eos # (Auto) 0.02 Baso # (Auto) 0.02 PT 11.8 H INR 1.11 PTT (Actin FS) 34.1 Specimen Type Sample Site pH pCO2 pO2 HCO3 Base Excess Oxyhemoglobin ABG O2 Sat (Calculated) ABG O2 Saturation ABG Carboxyhemoglobin ABG Methemoglobin Magan Test A-a O2 Difference Total Hemoglobin Lactate Blood Gas Modality FiO2 % Sodium 131 L Potassium 3.5 D Chloride 88 L Carbon Dioxide 25 Anion Gap 18 BUN 15 Creatinine 3.0 H Estimated GFR/1.73 m2 21 BUN/Creatinine Ratio 5 Glucose 453 H* D Calculated Osmolality 283 Calcium 9.8 Magnesium Total Bilirubin 0.63 AST 228 H ALT 442 H Alkaline Phosphatase 145 H Creatine Kinase 235 H Creatine Kinase Index 3.2 H CK-MB (CK-2) 7.62 H Troponin T Total Protein 7.4 Albumin 4.1 Globulin 3.3 Albumin/Globulin Ratio 1.2 Lipase Plasma Lactate 09/20/16 09/20/16 09/20/16 21:10 21:10 21:10 WBC RBC Hgb Hct MCV MCH MCHC RDW Std Deviation Plt Count MPV Immature Gran % (Auto) Neut % (Auto) Lymph % (Auto) Stevens % (Auto) Eos % (Auto) Baso % (Auto) Immature Gran # (Auto) Neut # (Auto) Lymph # (Auto) Stevens # (Auto) Eos # (Auto) Baso # (Auto) PT INR PTT (Actin FS) Specimen Type Sample Site pH pCO2 pO2 HCO3 Base Excess Oxyhemoglobin ABG O2 Sat (Calculated) ABG O2 Saturation ABG Carboxyhemoglobin ABG Methemoglobin Magan Test A-a O2 Difference Total Hemoglobin Lactate Blood Gas Modality FiO2 % Sodium Potassium Chloride Carbon Dioxide Anion Gap BUN Creatinine Estimated GFR/1.73 m2 BUN/Creatinine Ratio Glucose Calculated Osmolality Calcium Magnesium 2.1 Total Bilirubin AST ALT Alkaline Phosphatase Creatine Kinase Creatine Kinase Index CK-MB (CK-2) Troponin T 0.349 H* Total Protein Albumin Globulin Albumin/Globulin Ratio Lipase 288 H Plasma Lactate 09/20/16 09/20/16 21:45 22:25 WBC RBC Hgb Hct MCV MCH MCHC RDW Std Deviation Plt Count MPV Immature Gran % (Auto) Neut % (Auto) Lymph % (Auto) Stevens % (Auto) Eos % (Auto) Baso % (Auto) Immature Gran # (Auto) Neut # (Auto) Lymph # (Auto) Stevens # (Auto) Eos # (Auto) Baso # (Auto) PT INR PTT (Actin FS) Specimen Type ARTERIAL Sample Site R RADIAL pH 7.40 pCO2 41 pO2 62 HCO3 25.1 Base Excess 0.5 Oxyhemoglobin 89.3 L* ABG O2 Sat (Calculated) 15.7 ABG O2 Saturation 92.9 L ABG Carboxyhemoglobin 2.30 ABG Methemoglobin 1.6 H Magan Test YES A-a O2 Difference 36.0 Total Hemoglobin 12.5 Lactate 2.20 Blood Gas Modality ROOM AIR FiO2 % 21.0 Sodium Potassium Chloride Carbon Dioxide Anion Gap BUN Creatinine Estimated GFR/1.73 m2 BUN/Creatinine Ratio Glucose Calculated Osmolality Calcium Magnesium Total Bilirubin AST ALT Alkaline Phosphatase Creatine Kinase Creatine Kinase Index CK-MB (CK-2) Troponin T Total Protein Albumin Globulin Albumin/Globulin Ratio Lipase Plasma Lactate 3.5 H Vital Signs - 24 hr 09/20/16 09/20/16 09/20/16 21:10 22:15 23:22 Temperature 100.2 F H 98.7 F Pulse Rate 70 70 70 Respiratory 23 15 16 Rate Blood Pressure 171/76 170/64 139/65 O2 Sat by Pulse 98 95 98 Oximetry Family given results. Pt will be admitted to the hospitalist group. Family in agreement with plan of care. - EKG 1 Time of EKG reading by physician:: 22:33 EKG Read and Signed by:: Seb Chang EKG Interpretation (*Must complete 3 of following elements*): Abnormal Rate: 69 Rhythm: sinus rhythm with frequent PVCs [place]: right ST Wave: non-specific ST changes Comments: prolonged QT - XRAY 1 XRAY Study: Chest Impression: Abnormal XRAY Interpretation: cardiomegally, R pumonary mass unchaged from previous: Dr. Chang-SHAQ POE - CT/MRI 1 CT Study: Abdomen, Pelvis Impression: Abnormal (New consolidation at the lung bases with tiny left pleural effusion. Suspect infection. Mild genderalized anasarca with hepatic venous engorgement suggesting right heart dysfunction. Small amout of fluid in the right iliopsoas bursa. Generalized skull bladder wall thickening could be due to 3rd spacing. Otherwise no acute findings.: Dr. Low-Cruz Rad radiologist) - CONSULTS/PCP/HOSPITALIST Notification #1 *Consult/PCP/Hospitalist*: Dr. June- Hospitalist Time Discussed: 23:44 Consult Disposition: Will see in ED, Admit <Nicole Tam - Last Filed: 09/20/16 23:43> Procedures - ULTRASOUND (By ED Provider) Other Area Impression: right lower extremity Procedure Comment: pulsitile flow noted <Nicole Tam - Last Filed: 09/20/16 23:43> Departure <Nicole Tam - Last Filed: 09/20/16 23:43> - Departure Time of Disposition Order: 00:00 Certified Medical Emergency: Emergent <Seb Chang - Last Filed: 09/21/16 00:01> - Departure DIAGNOSIS: ESRD (end stage renal disease) on dialysis, Febrile illness, acute Altered mental state Qualifiers: Altered mental status type: stupor Qualified Code(s): R40.1 - Stupor Disposition: ADMITTED INPATIENT 09 Condition: Fair Referrals: Dara Palacios [Primary Care Provider] - Attestation - Scribe Verification/Attestation Scribe:: Nicole Tam Acting as Scribe for:: Seb Chang Scribe documention review:: This chart was documented by a scribe and accurately reflects the service the provider performed and the decisions made by the provider. <Nicole Tam - Last Filed: 09/20/16 23:43> Physician Attestation - Physician Attestation I, the provider, attest to the following statement:: Seb Chang Physician documentation Attestation:: This documentation recorded by the scribe accurately reflects the service I personally performed and the decisions made by me. <Nicole Tam - Last Filed: 09/20/16 23:43>
[2016-09-20 21:37] LABS: MANUAL DIFF NEEDED? NO
[2016-09-20 21:42] LABS: BASO% 0.5 % (0.0-0.8); EOS# 0.02 X1000 (0.0-0.7); EOS% 0.5 % (0.0-10.0); HEMATOCRIT 40.5 % (42.0-52.0); HEMOGLOBIN 12.9 g/dL (14.0-18.0); LYMPH# 0.52 X1000 (1.2-3.4); LYMPH% 12.3 % (20.5-51.1); MCH 29.4 PG (27-31); MCHC 31.9 g/dL (33-37); MCV 92.3 FL (81-99); MONO# 0.57 X1000 (0.11-0.59); MONO% 13.5 % (1.7-9.3); MPV 11.4 FL (7.4-10.4); NEUT% 73.2 % (42.2-75.2); PLT 105 X1000 (130-400); RBC 4.39 XMIL (4.7-6.1)
[2016-09-20] MEDS ORDERED: NS 1,000 ML IV ONE (21:54)
[2016-09-20] MEDS: OFIRMEV 1000 MG/ISOTONIC SOLN 100 ML IV ONE (21:55)
[2016-09-20] MEDS ORDERED: NS 1,000 ML ONE (21:55)
[2016-09-20 21:58] LABS: ALLEN TEST YES; BE 0.5 mmoll (-3.0-3.0); BLOOD TYPE ARTERIAL; DRAW SITE R RADIAL; METHB 1.6 % (0.0-1.5); O2(CT) 15.7 mL/dL (15.0-23.0); PCO2(98.6) 41 mmHg (35-45); PO2(98.6) 62 mmHg (60-100); SAMPLE BLOOD; SAO2 92.9 % (95.0-100.0); THB 12.5 g/dL (11.5-17.4)
[2016-09-20 21:59] LABS: MODALITY ROOM AIR
[2016-09-20 22:01] LABS: INR 1.11; PROTIME 11.8 Seconds (9.2-11.7); PTT 34.1 Seconds (22.0-36.0)
[2016-09-20 22:32] LABS: ALBUMIN 4.1 g/dL (3.5-5.0); CALCIUM 9.8 mg/dL (8.8-10.2); POTASSIUM 3.5 mmol/L (3.5-5.1); TOTAL BILIRUBIN 0.63 mg/dL (0.20-1.00); TOTAL PROTEIN 7.4 g/dL (6.3-8.3)
[2016-09-20 23:10] LABS: CK INDEX 3.2 (0.0-2.5); CK-MB 7.62 ng/mL (0.0-5.0)
[2016-09-20] MEDS ORDERED: VANCOMYCIN 1 GM/NS 250 ML IV ONE (23:39)
[2016-09-20] MEDS ORDERED: ZOSYN 2.25 GM/NS 50 ML IV ONE (23:40)
[2016-09-20] MEDS ORDERED: HUMULIN R SUBQ ONE (23:46)
[2016-09-21 01:31] LABS: URINE SOURCE CATH
[2016-09-21 01:59] LABS: BILIRUBIN URINE NEGATIVE (NEGATIVE); BLOOD URINE SMALL (NEGATIVE); COLOR YELLOW; GLUCOSE URINE >1000 mg/dL (NEGATIVE); LEUKOCYTES URINE SMALL (NEGATIVE); NITRITE URINE NEGATIVE (NEGATIVE); PH URINE 6.5; PROTEIN URINE 600 mg/dL (NEGATIVE); SP GRAVITY URINE 1.015; TURBIDITY URINE HAZY (CLEAR); UROBILINOGEN URINE NORMAL (NORMAL)
[2016-09-21 02:12] LABS: UR EPITHELIAL CELLS <10 /HPF (<10); URINE BACTERIA NEGATIVE /HPF; URINE CULTURE NEEDED? YES; URINE MICRO REVIEW NEEDED? YES; URINE RBC 20-40 /HPF (<10); URINE WBC TNTC /HPF (<10)
[2016-09-21 02:18] LABS: URINE CASTS NONE SEEN; URINE CRYSTALS CA OXALATE PRESENT; URINE SMALL ROUND CELLS NONE SEEN
[2016-09-21] MEDS ORDERED: NARCAN IV ONE (02:20)
[2016-09-21 02:54] LABS: UR AMPHETAMINES QUAL NONE DETECTED (NONE DETECT); UR BARBITUATES QUAL NONE DETECTED (NONE DETECT); UR BENZODIAZEPIN QUAL NONE DETECTED (NONE DETECT); UR CANNABINOIDS QUAL NONE DETECTED (NONE DETECT); UR COCAINE QUAL NONE DETECTED (NONE DETECT); UR METHADONE QUAL NONE DETECTED (NONE DETECT); UR OPIATES QUAL NONE DETECTED (NONE DETECT); UR OXYCODONE QUAL NONE DETECTED (NONE DETECT); UR PCP QUAL NONE DETECTED (NONE DETECT)
[2016-09-21] MEDS ORDERED: VANCOMYCIN IV PER PHARMACY MISC SCH (03:00)
[2016-09-21] MEDS ORDERED: PEPCID PO PRN (03:00)
[2016-09-21] MEDS ORDERED: NEURONTIN PO PRN (03:00)
[2016-09-21] MEDS ORDERED: ZOFRAN IV PRN (03:00)
[2016-09-21] MEDS ORDERED: SORBITOL PO PRN (03:00)
--- NOTE | 2016-09-21 03:50 | HISTORY AND PHYSICAL ---
CHIEF COMPLAINT: Altered mental status. HISTORY OF PRESENTING ILLNESS: This is a 66-year-old male with a history of end-stage renal disease, lung cancer, coronary disease, diabetes mellitus type 2. Who is a [facility] resident at [facility] in [place], who was brought to the emergency department due to mental status changes. Patient apparently was not responding. He was seen in the ER. He continued to be altered and not really arousable. He was admitted several weeks ago with prior symptoms. At that time, he had global encephalopathy. It seems that it was probably secondary to medications that he was on. He was given, at that time, Narcan and he seemed to have some kind of improvement during his last visit. He was evaluated in the ER, and he continues to be lethargic and obtunded and due to his presenting symptoms, he will need hospitalization for further management. PAST MEDICAL HISTORY: Include end-stage renal disease, lung cancer, coronary disease, diabetes mellitus type 2, hypertension, paroxysmal atrial fibrillation, chronic anemia. PAST SURGICAL HISTORY: Colon resection, coronary bypass, right foot ORIF, back surgery, appendectomy, cataract surgery, left shoulder arthroplasty. ALLERGIES: Erythromycin, iodine, niacin and statins. CURRENT MEDICATIONS: Is listed in the MAR. SOCIAL HISTORY: No history of smoking, alcohol or illicit drug use currently. FAMILY HISTORY: No history of coronary artery disease. REVIEW OF SYSTEMS: Unable to obtain due to current mentation of patient. PHYSICAL EXAMINATION: GENERAL: The patient is obtunded and not responding to verbal or tactile stimuli. VITAL SIGNS: Temperature 100.2 degrees, pulse 70, respirations 23, blood pressure 171/76. HEENT: Atraumatic, normocephalic. NECK: No masses. CHEST: Rhonchi. CARDIOVASCULAR: Regular rate and rhythm. ABDOMEN: Soft. Positive bowel sounds. EXTREMITIES: No edema. NEUROLOGIC: Patient is obtunded. : No bladder distention. SKIN: Warm. LABORATORIES AND STUDIES: WBC 4.22, hemoglobin 12.9, hematocrit 40.5, platelets 105,000. Sodium 131, potassium 3.5, chloride 88, CO2 25, BUN is 15, creatinine 3.0, glucose is 453. Troponin 0.349. ASSESSMENT: This is a 66-year-old male with a history of end-stage renal disease, lung cancer, diabetes mellitus type 2, and hypertension, who was brought to the emergency department due to patient being nonresponsive. He continues to be unresponsive in the ER and mostly obtunded and due to his presenting symptoms, he will need hospitalization for further management. 1. Altered mental status. Unclear etiology. 2. Global encephalopathy. Possibly related to medications as was in his previous admission. 3. End-stage renal disease. 4. Chronically elevated troponin seen on multiple visits. 5. Diabetes mellitus type 2 with hyperglycemia. 6. Chronic anemia. PLAN: 1. We will admit patient to ICU. 2. Give patient Narcan. 3. Monitor neuro status q.1 hour. 4. We will consult Neurology. 5. We will consult Nephrology for dialysis. 6. Monitor blood glucose. Continue patient on sliding scale insulin regimen. 7. We will put patient on DVT prophylaxis with heparin. 8. We will continue to follow and reassess.
[2016-09-21] MEDS: LIORESAL PO SCH ×2 (05:41→14:30)
[2016-09-21] MEDS: ZOSYN 2.25 GM/NS 50 ML IV SCH ×3 (05:56→19:50)
--- NOTE | 2016-09-21 06:03 | EKG Report ---
Test Performed on : 09/20/2016 10:33:57 PM Test Reason : No order in [place] Blood Pressure : / mmHG Vent. Rate : 069 BPM Atrial Rate : 066 BPM P-R Int : 000 ms QRS Dur : 086 ms QT Int : 546 ms P-R-T Axes : 054 091 115 degrees QTc Int : 585 ms Sinus rhythm. with frequent premature ventricular complexes. Rightward axis ST & T wave abnormality, consider anterolateral ischemia Prolonged QT Abnormal ECG When compared with ECG of 13-SEP-2016 06:50, premature ventricular complexes. are now present T wave inversion now evident in Anterolateral leads QT has lengthened Unconfirmed Result
--- NOTE | 2016-09-21 06:47 | Diag Imaging Result Document ---
PROCEDURE NAME: CHEST-PORTABLE - 09/20/2016 PORTABLE CHEST: COMPARISON: 09/19/2016. FINDINGS: There are sternal wires and surgical clips. The patient is rotated to the right. Even so, the heart is mildly prominent. There is mild central vascular prominence. No change in the right basilar nodule. No pleural effusions identified. There has been prior orthopedic surgery to the left shoulder. IMPRESSION: Mild central vascular prominence.
--- NOTE | 2016-09-21 06:49 | Diag Imaging Result Document ---
PROCEDURE NAME: HEAD W/O CONTRAST - 09/20/2016 CT BRAIN WITHOUT CONTRAST: COMPARISON: Compared to 09/15/2016. FINDINGS: No parenchymal hemorrhage. No epidural or subdural hematoma. No subarachnoid hemorrhage. There is mild atrophy with mild chronic microvascular ischemic changes. No mass identified on this noncontrasted exam. No sinus opacification. IMPRESSION: 1. No hemorrhage. 2. Chronic microvascular ischemic changes similar to the prior study. A preliminary report was given at 9:47 p.m.
[2016-09-21] MEDS ORDERED: HUMULIN R SUBQ SCH (07:00)
[2016-09-21] MEDS ORDERED: VANCOMYCIN 1 GM/NS 250 ML IV SCH (07:00)
--- NOTE | 2016-09-21 07:47 | Diag Imaging Result Document ---
PROCEDURE NAME: ABDOMEN/PELVIS W/O CONTRAST - 09/20/2016 CT UROGRAM WITHOUT CONTRAST: FINDINGS: There is cardiomegaly with calcification in the mitral valve annulus. There are patchy alveolar opacities in the right middle lobe and both lower lobes consistent with pneumonia. These were not present on 03/11/2016. There is a small left pleural effusion which has actually diminished since the previous study. There is bilateral renal atrophy with calcifications in the main and segmental renal vessels. There is extensive atherosclerotic calcification throughout the aorta and all of its branches. There is no apparent hydronephrosis. There are at least 3 cysts in the left kidney some of which contain calcifications in their jerez. There is apparent subcutaneous edema which was not apparent at the time of the previous study. There is also some edema in the peritoneal and retroperitoneal fat. The urinary bladder remains thickened in appearance as it did previously. There is no evidence of bowel obstruction. Postsurgical changes are seen in the splenic flexure of the colon. There is no evidence of appendicitis. There is no definite evidence of adenopathy, retroperitoneal nodes, having a similar appearance to the previous study. The regional skeleton is stable in appearance. The gallbladder is similar in appearance to the previous study being somewhat contracted and thickened. IMPRESSION: Patchy pneumonia versus pulmonary edema. Anasarca. Left pleural effusion. No definite evidence of acute intra-abdominal or pelvic disease.
[2016-09-21] MEDS: ASPIRIN PO SCH (08:23)
[2016-09-21] MEDS: TOPROL XL PO SCH (08:24)
[2016-09-21] MEDS: RENAGEL PO SCH ×3 (08:56→17:00)
[2016-09-21] MEDS: LEVEMIR SUBQ SCH (08:56)
[2016-09-21] MEDS: VITAMIN D PO SCH (08:57)
[2016-09-21] MEDS: PLETAL PO SCH ×2 (08:57→21:51)
[2016-09-21] MEDS: IMDUR PO SCH (08:57)
[2016-09-21] MEDS: CORDARONE PO SCH (08:58)
[2016-09-21] MEDS: COLACE PO SCH (08:58)
[2016-09-21] MEDS: HEPARIN SUBQ SCH ×2 (08:59→22:08)
[2016-09-21] MEDS ORDERED: D50W SYRINGE IV ONE (09:32)
--- NOTE | 2016-09-21 09:36 | CONSULTATION ---
DATE OF CONSULTATION: 09/21/2016 HISTORY: Mr. Goncalves is 66 years old. He was returned to the emergency room overnight after being poorly responsive at his intermediate. I have reviewed the history recorded in the chart last night. Workup includes noncontrast CT of the head overnight reported to show usual changes, nothing remarkable, nothing different compared to previous scan on 09/15/2016. Labs showed initial blood sugar of 450. Initial sodium 131. Liver enzymes are elevated. He has anemia. Urine drug screen was all negative. His home medicine list includes p.r.n. oxycodone. He presented with a temperature of 100.2 degrees and temperature has been less than 99 since then as recorded. Systolic blood pressure was initially 171, later 106, but mostly 120s-130s this morning. I reviewed his home medicine list. There are a significant number of medications but nothing that generally would be associated with encephalopathy at the doses listed. On exam, Mr. Goncalves is supine and he appears to be sleeping comfortably. With moderate noxious stimulation, he moved all limbs, squirmed, grimaced, opened his eyes briefly. When not vigorously stimulated, he seemed quickly back to sleep. He was not attentive to me, did not respond, did not communicate, and did not follow commands. He did not speak. Tone seems equal in the limbs. He has some rigidity in the neck with head turning laterally more than with flexion or extension. Plantar response is silent bilaterally. IMPRESSION: Global encephalopathy. He has had this presentation in the past. Each time, he has gradually improved. I believe that he has a baseline cognitive impairment syndrome which would predispose him to significant exacerbation of confusion and even altered consciousness with any toxic or metabolic disturbance. We have had concerns in the past that medications may be contributing to his altered mental state. This time, he presented with significant blood sugar elevation. I do not have any urgent suggestion from a neurologic standpoint. I hope he will continue to improve as he is done in the past. I would consider a cholinesterase inhibitor trial when he is back to baseline. If he does not recover spontaneously, we might consider workup including electroencephalogram to make sure he is not having subclinical seizures. We might repeat his toxicology screen to see if he might have been intoxicated with opiate medicine on presentation and if that was acute, might not have been apparent in the urine on initial screen. That seems unlikely. Thanks for asking me to see Mr. Goncalves again.
[2016-09-21] MEDS: HUMULIN R SUBQ SCH ×2 (15:51→21:25)
--- NOTE | 2016-09-21 16:50 | PROGRESS NOTE ---
DATE: 09/21/2016 Mr. Goncalves was admitted this morning by Dr. Singh. He has been seen by Dr. Becker. HISTORY OF PRESENT ILLNESS: This is a 66-year-old with history of end-stage renal disease, lung cancer, coronary artery disease, diabetes mellitus type 2, a [place] [facility], brought to the emergency department after, due to his mental status changes, very lethargic, not responding. In the emergency room he continued to be altered, not really arousable. He was admitted several weeks ago. At that time he had global encephalopathy, seems it was probably secondary to medications which were adjusted, and seemed to have some improvement. In the emergency room here, evaluated, he was lethargic, obtunded. I think he was given some Narcan. REVIEW AGAIN OF PAST MEDICAL HISTORY: End-stage renal disease, lung cancer, coronary artery disease, diabetes mellitus type 2, hypertension, paroxysmal atrial fibrillation, chronic anemia. SURGICAL HISTORY: Colon resection. Coronary artery bypass graft. Right foot open reduction and internal fixation. Back surgery. Appendectomy. Cataract surgery. Left shoulder arthroplasty. ALLERGIES: Erythromycin, niacin, and statins. IMPRESSION: It is felt that altered mental status, encephalopathy, obtunded. Not sure whether this is medications. His drug screen is negative. He does have end-stage renal disease, and diabetes, and underlying lung cancer. Dr. Becker saw this morning, felt global encephalopathy. He had this presentation in the past. He has had gradual improvement, I believe a baseline cognitive impairment syndrome which would predispose him to significant exacerbation of confusion and even altered consciousness with any toxic or metabolic disturbance. We have had concerns about his medications in the past. He is still very lethargic. I think we will go ahead and get an MRI of his head. REVIEW OF LAB: Was fairly unremarkable. Blood sugars have been under fairly good control. ProTime and PTT unremarkable. Blood gases show are pretty unremarkable as well, pH of 7.4, pCO2 of 41, and PO2 of 62. O2 saturation was 89%, that was on room air. He is on some nasal cannula now. ASSESSMENT AND PLAN: 1. Global encephalopathy, suspect multifactorial, suspect some baseline cognitive impairment as well. He apparently had this presentation before. He has remained pretty lethargic. We will get an MRI. I do not see anything focal on neurologic exam. 2. End-stage renal disease. His volume status, electrolytes look pretty good. 3. Elevated troponins which have been consistent with his lab from multiple visits. 4. Diabetes mellitus type 2. Sugars appear to be reasonable. 5. Chronic anemia. 6. Appreciate Neurology's help. I do think we ought to check T4 and TSH. I am not sure as far as his medications reviewed. He is on vancomycin and Zosyn covering broad-spectrum. He is on Zetia 10 mg a day, and vitamin D3 1000 units a day, metoprolol 25 mg q.a.m., Rocaltrol 0.25 mcg p.o. he takes on I think a couple times a week, insulin detemir 17 units subcutaneously q.a.m., baclofen 10 mg t.i.d., Pletal 100 mg b.i.d., docusate 100 mg q.a.m., heparin 5000 units subcutaneous q.12 hours, aspirin 81 mg a day, Cordarone 200 mg q.a.m., aspirin 81 mg a day, sorbitol 30 mg p.o. p.r.n. daily, Pepcid 20 mg p.r.n., Neurontin 300 mg p.o. daily. I am going to go ahead and stop the medications that are questionable. I will stop the Neurontin. I am going to stop the baclofen, and I think we may pursue an MRI. We will stop the Zetia for now.
--- NOTE | 2016-09-21 19:24 | CONSULTATION ---
DATE OF CONSULTATION: 09/21/2016 REASON FOR CONSULTATION: Management of end-stage kidney disease. HISTORY OF PRESENT ILLNESS: Mr. Goncalves is a 66-year-old, white male who was just discharged from this facility within the last 48 hours. He had been admitted with altered sensorium that had been attributed to polypharmacy. He does have some degree of underlying vascular dementia and again had presented with obtundation. His symptoms has slowly improved after discontinuation of multiple medications such that he was awake, alert and able to answer questions appropriately prior to discharge. I actually saw him on the morning of the at the outpatient dialysis clinic where he was awake and alert. He remembered what happened at the hospital and was able to interact with me appropriately. Thereafter he was brought back to the emergency room with obtundation. He did have a low-grade fever on presentation and since admission he has really not improved. He remains obtunded such that at the time of my examination he is really not arousable even with vigorous tactile stimuli. PAST MEDICAL HISTORY: 1. Diabetes mellitus type 1. 2. End-stage kidney disease. 3. Coronary artery disease. 4. Lung cancer. 5. Hypertension. 6. Anemia. 7. Recent C-spine surgery. HOME MEDICATIONS: Famotidine, docusate, calcitriol, sorbitol, albuterol, sevelamer, zinc sulfate, Zetia, cholecalciferol, Baclofen, oxycodone, insulin, magnesium hydroxide, gabapentin, amiodarone, metoprolol, isosorbide, aspirin. ALLERGIES: Erythromycin and iodine. SOCIAL HISTORY: He resides at [facility]. FAMILY HISTORY: Otherwise not obtainable. REVIEW OF SYSTEMS: Otherwise not obtainable. PHYSICAL EXAMINATION: Vital Signs: Blood pressure 143/59, heart rate 55, respirations 20, afebrile. General: He is an elderly man, mental status as above, in no acute distress. Skin: Pale and dry. HEENT: Conjunctivae are pink. Pupils are equal 2 mm. Oropharynx is clear. Neck: Supple. Neck veins are not distended. Heart: Regular without gallops. Lungs: Have equal breath sounds. No crackles or wheezes. Abdomen: Soft, nontender. Bowel sounds are present. Extremities: No clubbing or cyanosis. 1+ edema. IMAGING STUDIES: CT of the abdomen demonstrates patchy pneumonia versus pulmonary edema as well as anasarca and left pleural effusion. New no intra-abdominal disease CT head with chronic microvascular changes. LABORATORY DATA: Sodium 131, potassium 3.5, chloride 88, bicarbonate 25, BUN 15, creatinine 3.0. AST 228, ALT 442, alkaline phosphatase 145. IMPRESSION: Delirium. Studies as above. He has been evaluated by Dr. Becker who felt he had global encephalopathy. He has not had any appreciable improvement since admission. He will be due for dialysis on Sunday. I have reviewed his medications. No changes are required at this time. I would agree with covering him with IV antibiotics until his cultures are negative. I also agree with discontinuation of gabapentin and other medications that may affect his thinking.
[2016-09-21] MEDS ORDERED: ZETIA PO SCH (21:00)
[2016-09-22] MEDS ORDERED: HALDOL IM ONE (00:02)
[2016-09-22] MEDS ORDERED: HALDOL IM PRN (00:51)
[2016-09-22] MEDS: ZOSYN 2.25 GM/NS 50 ML IV SCH ×4 (01:43→17:14)
--- NOTE | 2016-09-22 02:38 | PROGRESS NOTE ---
DATE: 09/21/2016 ADDENDUM: He has too numerous to count white blood cells in the urine consistent with urinary tract infection which we are treating aggressively. He is on Zosyn and vancomycin. Urine culture is pending. He has known kidney disease, I believe end-stage. He has got creatinine is 3. Dr. Kurtz is already on the case.
[2016-09-22] MEDS ORDERED: ATIVAN IV ONE ×2 (05:35→13:07)
[2016-09-22 06:06] LABS: MANUAL DIFF NEEDED? NO
[2016-09-22 06:30] LABS: CALCIUM 9.1 mg/dL (8.8-10.2); POTASSIUM 3.5 mmol/L (3.5-5.1)
[2016-09-22 06:45] LABS: FREE T4 1.03 ng/dL (0.93-1.70)
[2016-09-22 06:52] LABS: BASO% 0.3 % (0.0-0.8); EOS# 0.04 X1000 (0.0-0.7); EOS% 1.1 % (0.0-10.0); HEMATOCRIT 37.9 % (42.0-52.0); IMM GRAN# 0.03 X1000 (0.0-0.04); IMM GRAN% 0.8 % (0.0-0.5); LYMPH# 0.53 X1000 (1.2-3.4); LYMPH% 14.8 % (20.5-51.1); MCH 29.3 PG (27-31); MCHC 31.7 g/dL (33-37); MCV 92.7 FL (81-99); MONO% 8.4 % (1.7-9.3); MPV 10.4 FL (7.4-10.4); NEUT% 74.6 % (42.2-75.2); PLT 87 X1000 (130-400); RBC 4.09 XMIL (4.7-6.1)
[2016-09-22] MEDS ORDERED: NS 2,000 ML MISC PRN (07:01)
[2016-09-22] MEDS ORDERED: TIGHT: 0.2 ML/HR MISC PRN (07:01)
[2016-09-22] MEDS ORDERED: HEPARIN IV PRN (07:01)
[2016-09-22] MEDS: HUMULIN R SUBQ SCH ×4 (07:45→21:43)
[2016-09-22] MEDS: RENAGEL PO SCH ×3 (08:06→16:08)
--- NOTE | 2016-09-22 09:51 | PROGRESS NOTE ---
DATE: 09/22/2016 SUBJECTIVE: The staff states that he was more alert overnight, but calling out and somewhat difficult to control, so he was dosed with Ativan on 2 occasions. He is currently sleeping. OBJECTIVE: Vital Signs: Blood pressure 138/61, heart rate 69, respirations 21, afebrile. Eyes: Conjunctivae are pink. Pupils are equal. Neck: Neck veins are not distended. Heart: Regular without gallops. Lungs: Have equal breath sounds. No crackles. Abdomen: Soft, nontender. Bowel sounds present. Extremities: Have 1+ edema. No clubbing or cyanosis. LABORATORY DATA: Sodium 135, potassium 3.5, chloride 92, bicarbonate 19, BUN 24, creatinine 4.6, hemoglobin 12.0. IMPRESSION: Altered mental status. He is essentially unchanged from admission. I had a long discussion with his sister who was present. We are treating him broadly for possible causes of altered sensorium. He does have at least moderate underlying vascular dementia. He also has lung cancer that is not being treated. Markedly declining functional status. From my perspective, resuscitative efforts and mechanical ventilation would not be appropriate. Specifically, his perspective on his illness has been such that he has been very reluctant to accept increasing levels of care. 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 His sister certainly understands and agrees. She will discuss it with the family with the intention of securing a [id number] order. Otherwise, continue care. He has dialysis planned today.
[2016-09-22] MEDS ORDERED: HEPARIN ONE (09:53)
[2016-09-22] MEDS ORDERED: NS 2,000 ML ONE (09:53)
--- NOTE | 2016-09-22 09:55 | PROGRESS NOTE ---
DATE: 09/22/2016 SUBJECTIVE: Mr. Goncalves apparently has woken up and had some agitation, so we gave him a couple doses of Ativan, and he was sleeping again when I saw him this morning. Apparently moving all extremities pretty well. OBJECTIVE: Vital Signs: He is afebrile. Temperature 98 degrees, pulse 69, respirations 20, blood pressure 138/61. HEENT: Pupils are pinpoint and sluggish, but they are equal. Cardiovascular: Less than 6 cm. Lungs: Clear in all lung cowan. Cardiovascular: Regular rhythm and rate without murmur or S3. Urine output not recorded. LABORATORY: Reviewed from yesterday. Blood sugars 400 and 300. I have some number some fingersticks that are 181 and 207. Troponin was 0.349 but is chronically high for him. ASSESSMENT AND PLAN: 1. Appears to have global encephalopathy. He did wake up. They have had to sedate him again with some Ativan and that seems to be improving. I think we need to let him wake up some more. We have cut out any sedative medications routine. 2. End-stage renal disease volume electrolytes look appropriate. 3. Elevated troponins which he has chronically. 4. Diabetes mellitus type 2. Continue follow up fingerstick sugars. 5. Chronic anemia. I have debated whether to get an MRI of the head, but he neurologically apparently is waking up. I feel like he had an underlying urinary tract infection. Continue IV antibiotics. I do not know what to do different at this point. 6. Will look to do different at this point. He is on vancomycin and Zosyn.
--- NOTE | 2016-09-22 10:07 | Diag Imaging Result Document ---
PROCEDURE NAME: MRA NECK W/O CONT - 09/21/2016 MRA NECK WITHOUT CONTRAST: Time of flight MR angiogram of the carotid circulation of the neck is obtained. No contrast administered per request of the referring provider. FINDINGS: There is some limitation of detail associated with technical factors, motion artifacts, and/or of the lack of administered contrast. Allowing for the limitation of detail, there is no substantial carotid stenosis identified in the neck. IMPRESSION: No substantial carotid stenosis identified.
--- NOTE | 2016-09-22 10:09 | Diag Imaging Result Document ---
PROCEDURE NAME: MRI BRAIN W/O CONTRAST - 09/21/2016 MRI BRAIN WITHOUT CONTRAST: No contrast administered per request of the referring provider. COMPARISON: 04/25/2016. FINDINGS: There is no evidence of hemorrhage, mass effect, or midline shift. There is ventricular asymmetry which is stable, compatible with chronic change. There are minimal chronic microvascular ischemic changes. The diffusion-weighted images show no areas of restricted diffusion (no evidence of acute infarct). There is mild paranasal sinus disease noted. IMPRESSION: 1. Stable exam compared to 04/25/2016. Minimal chronic microvascular ischemic changes. 2. No visible acute abnormality. No evidence of acute infarct.
--- NOTE | 2016-09-22 10:15 | Diag Imaging Result Document ---
PROCEDURE NAME: MRA BRAIN W/O CONTRAST - 09/21/2016 MRA BRAIN WITHOUT CONTRAST: Time of flight MR angiogram of the intracranial circulation with reconstructed 3D rotating MIP images obtained. COMPARISON: No comparison exam. FINDINGS: There is limited detail, particularly with limited visualization of branch vessels. There are apparent stenoses at the A-1 segment of the right anterior cerebral artery, A1 and proximal A-2 segments of the left anterior cerebral artery, distal left middle cerebral artery, and left posterior cerebral artery. There is no occlusion of central major intracranial artery identified. As mentioned above, there was little visualization of branch vessels of the major intracranial arteries. There is no aneurysm identified. IMPRESSION: Limited detail. Apparent scattered stenoses at A-1 segment of right anterior cerebral artery, A1 and proximal A-2 segment of left anterior cerebral artery, distal left middle cerebral artery, and left posterior cerebral artery.
--- NOTE | 2016-09-22 10:58 | Diag Imaging Result Document ---
PROCEDURE NAME: CHEST-PORTABLE - 09/22/2016 AP PORTABLE CHEST AT 0940 HOURS: FINDINGS: There is cardiomegaly. There is a pulmonary nodule in the right lower lobe. There is some perihilar pulmonary edema. Compared to 09/20/2016, there has been no appreciable change considering differences in positioning. IMPRESSION: Mild pulmonary edema and cardiomegaly.
--- NOTE | 2016-09-22 11:24 | PROGRESS NOTE ---
DATE: 09/22/2016 SUBJECTIVE: Mr. Goncalves is in the dialysis unit. He initially appeared to be sleeping quietly. With relatively modest noxious stimulation, he became more alert, but was not attentive and did not follow commands. He repeated some phrases and I could understand some of his words. He moved all limbs spontaneously, but, at the time I was at his bedside, he moved his right arm more vigorously and more frequently than the left. He has full lateral eye movement , difficult exam because he was vigorously keeping his eyes shut. Neck remains negative for meningismus. I do not see anything new neurologically. He has baseline cognitive impairment, history of repeated admissions with global encephalopathy, workup this admission showing initial significant blood sugar elevation. There has also been question of medication intoxication associated with some of his previous periods of encephalopathy in the recent past. I do not have any new suggestion today. He seems more responsive now, and I hope he will continue to improve as he has done on prior admissions. Thanks for allowing me to follow up Mr. Goncalves. MONTEFIORE MEDICAL CENTERGriselda
[2016-09-22] MEDS ORDERED: HALDOL ONE (11:45)
[2016-09-22] MEDS: HALDOL IM PRN ×3 (11:49→19:57)
[2016-09-22] MEDS ORDERED: NS 1,000 ML ONE (12:35)
[2016-09-22] MEDS ORDERED: ATIVAN ONE (13:13)
[2016-09-22] MEDS: CORDARONE PO SCH (15:47)
[2016-09-22] MEDS: COLACE PO SCH (15:47)
[2016-09-22] MEDS: ASPIRIN PO SCH (15:47)
[2016-09-22] MEDS: IMDUR PO SCH (15:47)
[2016-09-22] MEDS: PLETAL PO SCH (15:48)
[2016-09-22] MEDS: VITAMIN D PO SCH (15:48)
[2016-09-22] MEDS: TOPROL XL PO SCH (15:48)
[2016-09-22] MEDS: ROCALTROL PO SCH (15:48)
[2016-09-22] MEDS: HEPARIN SUBQ SCH ×2 (15:49→21:43)
[2016-09-22] MEDS: LEVEMIR SUBQ SCH (15:49)
[2016-09-23] MEDS: ZOSYN 2.25 GM/NS 50 ML IV SCH ×2 (00:27→05:33)
[2016-09-23] MEDS: PLETAL PO SCH ×3 (00:30→21:27)
[2016-09-23] MEDS: HALDOL IM PRN ×3 (02:06→21:31)
[2016-09-23 05:45] LABS: MANUAL DIFF NEEDED? NO
[2016-09-23 06:11] LABS: CALCIUM 9.7 mg/dL (8.8-10.2); POTASSIUM 4.1 mmol/L (3.5-5.1)
[2016-09-23] MEDS: HUMULIN R SUBQ SCH ×4 (06:12→21:25)
[2016-09-23 06:17] LABS: BASO% 0.2 % (0.0-0.8); EOS# 0.01 X1000 (0.0-0.7); EOS% 0.2 % (0.0-10.0); HEMATOCRIT 35.1 % (42.0-52.0); IMM GRAN# 0.03 X1000 (0.0-0.04); IMM GRAN% 0.5 % (0.0-0.5); LYMPH# 0.66 X1000 (1.2-3.4); LYMPH% 11.3 % (20.5-51.1); MCH 29.1 PG (27-31); MCHC 31.3 g/dL (33-37); MCV 92.9 FL (81-99); MONO# 0.69 X1000 (0.11-0.59); MONO% 11.8 % (1.7-9.3); MPV 10.5 FL (7.4-10.4); PLT 120 X1000 (130-400); RBC 3.78 XMIL (4.7-6.1)
[2016-09-23] MEDS: HEPARIN SUBQ SCH ×2 (08:52→21:25)
[2016-09-23] MEDS ORDERED: HALDOL IV ONE (09:20)
--- NOTE | 2016-09-23 09:45 | PROGRESS NOTE ---
DATE: 09/23/2016 SUBJECTIVE: His arms are restrained. He is hollering out, not able to respond and answer questions. His eyes are shut. Moving all extremities. OBJECTIVE: Vital signs: Temperature 98.9 degrees, pulse 68, respirations 18, blood pressure 140/36. HEENT: CVP less than 6 cm. Lungs: Clear anterior and posterior. Cardiovascular exam: Regular rhythm and rate without murmur or S3. Abdomen: Soft. Skin: Warm and dry. : Good urine output. LAB: From this morning, white count 5840, hematocrit 35, platelet count 120,000. Sodium 140, potassium 4.1, chloride 94, bicarbonate 21, BUN 18, creatinine 3.5. Blood sugar is 216, 321, 192, and 224. X-RAYS: Chest x-ray from yesterday: Mild pulmonary edema. Cardiomegaly. Some perihilar edema. No appreciable change 09/20/2016. ASSESSMENT AND PLAN: 1. Global encephalopathy. Much more responsive. Obviously confused; I am not sure he knows who he is and where he is. Looking over his orders and medications, we have tried to get him off of anything that could be contributing to the lethargy and delirium. I do not see any sign of infection. I think I will stop his antibiotic, although he did come in with significant urinary sediment. There has been no growth on blood cultures. Urine with no growth. So, we will see if we can stop his antibiotic. 2. End-stage renal disease. Volume status, electrolytes looked appropriate. 3. He always has elevated troponins. I do not see any sign of active cardiac ischemia. 4. Diabetes mellitus type 2. Sugars look okay. 5. Chronic anemia. 6. Nutrition: Hopefully he can improve and will be able to eat.
[2016-09-23] MEDS: ATIVAN IV PRN ×3 (10:05→21:31)
[2016-09-23] MEDS: RENAGEL PO SCH ×2 (12:09→18:23)
[2016-09-23] MEDS: VITAMIN D PO SCH (12:10)
[2016-09-23] MEDS: TOPROL XL PO SCH (12:12)
[2016-09-23] MEDS: LEVEMIR SUBQ SCH (12:12)
[2016-09-23] MEDS: ASPIRIN PO SCH (12:12)
[2016-09-23] MEDS: COLACE PO SCH (12:13)
[2016-09-23] MEDS: IMDUR PO SCH (12:13)
[2016-09-23] MEDS: CORDARONE PO SCH (12:14)
--- NOTE | 2016-09-23 14:48 | PROGRESS NOTE ---
DATE: 09/23/2016 SUBJECTIVE: His eyes are open. He is moaning and verbalizing but difficult to understand. He does not attend to me. OBJECTIVE: Vital Signs: Blood pressure 121/41, heart rate 62, respirations 24, afebrile. General: He is an elderly man, in no distress. Mental status as above. Skin: Warm and dry. Eyes: Conjunctivae are pink and moist. Pupils are equal and round. Neck: Neck veins are not distended. Heart: Regular. Lungs: Have equal breath sounds. No crackles. Abdomen: Soft, nontender. Bowel sounds are present. Extremities: Have 1+ edema. No clubbing or cyanosis. LABORATORY DATA: Sodium 140, potassium 4.1, chloride 94, bicarbonate 21, BUN 18, creatinine 3.5. Hemoglobin 11.0. IMPRESSION: 1. End-stage kidney disease: His next scheduled dialysis treatment is for Sunday. He has no indications for extra treatment today. 2. Electrolytes/acid base/volume status in target. 3. Anemia in target.
[2016-09-24] MEDS: HUMULIN R SUBQ SCH ×4 (06:14→20:38)
[2016-09-24] MEDS ORDERED: INSULIN PEN NEEDLES ONE (08:21)
[2016-09-24] MEDS: LEVEMIR SUBQ SCH (08:23)
[2016-09-24] MEDS: ATIVAN IV PRN ×2 (08:24→14:37)
[2016-09-24] MEDS: HEPARIN SUBQ SCH ×2 (08:24→20:38)
--- NOTE | 2016-09-24 09:09 | PROGRESS NOTE ---
DATE: 09/24/2016 SUBJECTIVE: To review, the patient was admitted on 09/21/[address] Francisco June. He had an altered mental status. This is a 66-year-old with a history of end-stage renal disease, lung cancer, coronary artery disease, diabetes mellitus type 2. He is a senior living resident at [facility]. Brought to the emergency room due to altered mental status and appears to have global encephalopathy, probably multifactorial. Suspect some underlying cognitive decline but definitely this is a change in behavior. He continues to moan and cry out constantly. He is not able to cooperate. He is not swallowing. PHYSICAL EXAMINATION: Vital Signs: This morning, temperature 97.7 degrees, pulse 85, respirations 20. Blood pressures have been fluctuating between 116-194/36-88. Lungs: Clear anterolateral and posterior. Cardiovascular Examination: Regular rhythm and rate without murmur or S3. Abdomen: Soft, nontender, nondistended. Positive bowel sounds. No hepatosplenomegaly. Extremities: Without clubbing, cyanosis, or edema. LABORATORY DATA: Blood sugar 208, 195, 187. I am going to recheck some labs today. ASSESSMENT AND PLAN: 1. End-stage kidney disease. Next scheduled dialysis is on Sunday. His volume status and electrolytes look okay. 2. Global encephalopathy. I am not sure what tipped him over. We will check electrolytes again today. We will check an ammonia level. Looking over his medications, I do not see anything to stop at this point. The Ativan seemed to be most effective. I see no evidence of toxicity. His toxicologies are negative. We did an MRI of his brain, MRA. Stable examination, minimal chronic micro-ischemic changes. No visible acute abnormality. I guess we will check a thiamine level but that will take time. We will go ahead and put him on some thiamine empirically. 3. 4 diabetes mellitus type 2. Sugars appear controlled. 4. Chronic anemia, stable. 5. We will discuss with Dr. Kurtz.
[2016-09-24 09:29] LABS: MANUAL DIFF NEEDED? NO
[2016-09-24 09:33] LABS: BASO% 0.5 % (0.0-0.8); EOS# 0.02 X1000 (0.0-0.7); EOS% 0.5 % (0.0-10.0); HEMATOCRIT 35.2 % (42.0-52.0); HEMOGLOBIN 11.3 g/dL (14.0-18.0); LYMPH# 0.45 X1000 (1.2-3.4); LYMPH% 10.7 % (20.5-51.1); MCH 29.6 PG (27-31); MCHC 32.1 g/dL (33-37); MCV 92.1 FL (81-99); MONO% 9.5 % (1.7-9.3); MPV 9.9 FL (7.4-10.4); NEUT% 78.8 % (42.2-75.2); PLT 119 X1000 (130-400); RBC 3.82 XMIL (4.7-6.1)
[2016-09-24] MEDS: RENAGEL PO SCH ×3 (09:42→16:34)
[2016-09-24] MEDS: TOPROL XL PO SCH (09:42)
[2016-09-24] MEDS: ASPIRIN PO SCH (09:43)
[2016-09-24] MEDS: COLACE PO SCH (09:44)
[2016-09-24] MEDS: CORDARONE PO SCH (09:45)
[2016-09-24] MEDS: PLETAL PO SCH ×2 (09:48→20:41)
[2016-09-24] MEDS: IMDUR PO SCH (09:48)
[2016-09-24] MEDS: VITAMIN D PO SCH (09:48)
[2016-09-24 10:07] LABS: ALBUMIN 3.2 g/dL (3.5-5.0); CALCIUM 9.3 mg/dL (8.8-10.2); POTASSIUM 3.2 mmol/L (3.5-5.1); TOTAL BILIRUBIN 0.58 mg/dL (0.20-1.00); TOTAL PROTEIN 6.3 g/dL (6.3-8.3)
[2016-09-24 10:08] LABS: FREE T4 0.99 ng/dL (0.93-1.70)
[2016-09-24] MEDS: THIAMINE 100 MG in NS 50 ML IV SCH (11:02)
[2016-09-24 11:08] LABS: SED RATE 55 mm/hr (0-15)
--- NOTE | 2016-09-24 11:19 | Diag Imaging Result Document ---
PROCEDURE NAME: CHEST-PORTABLE - 09/24/2016 PORTABLE CHEST: COMPARISON: Compared to 09/22/2016. FINDINGS: Sternal wires are present. The heart remains mildly enlarged. There is central vascular prominence. No pleural effusions identified. I believe there are right infiltrates in the lower lung. Nodular opacity in the lower outer right lung similar to the prior study. There has been prior surgery to the lower neck. IMPRESSION: Development of mild pulmonary edema with right basilar infiltrates. Followup PA and lateral recommended.
[2016-09-24] MEDS ORDERED: D50W SYRINGE IV PRN ×2 (16:16→16:25)
[2016-09-24] MEDS: CATAPRES-TTS-2 TD SCH (18:16)
[2016-09-25] MEDS: ATIVAN IV PRN ×3 (05:09→15:25)
[2016-09-25 05:34] LABS: ALBUMIN 3.3 g/dL (3.5-5.0); CALCIUM 9.8 mg/dL (8.8-10.2); POTASSIUM 3.4 mmol/L (3.5-5.1)
[2016-09-25] MEDS: HUMULIN R SUBQ SCH ×4 (06:26→20:01)
[2016-09-25] MEDS ORDERED: TIGHT: 0.2 ML/HR MISC PRN (06:42)
[2016-09-25] MEDS ORDERED: HEPARIN IV PRN (06:42)
[2016-09-25] MEDS ORDERED: NS 2,000 ML MISC PRN (06:42)
[2016-09-25] MEDS: HALDOL IM PRN (07:12)
[2016-09-25] MEDS: RENAGEL PO SCH ×3 (07:55→16:01)
[2016-09-25] MEDS: LEVEMIR SUBQ SCH (08:01)
[2016-09-25] MEDS: ASPIRIN PO SCH (08:03)
[2016-09-25] MEDS: VITAMIN D PO SCH (08:04)
[2016-09-25] MEDS: TOPROL XL PO SCH (08:04)
[2016-09-25] MEDS: COLACE PO SCH (08:04)
[2016-09-25] MEDS: ROCALTROL PO SCH (08:04)
[2016-09-25] MEDS: IMDUR PO SCH (08:05)
[2016-09-25] MEDS: PLETAL PO SCH ×2 (08:05→20:01)
[2016-09-25] MEDS: CORDARONE PO SCH (08:05)
[2016-09-25] MEDS: HEPARIN SUBQ SCH ×2 (08:08→20:01)
[2016-09-25] MEDS: EPOGEN SUBQ SCH (08:30)
--- NOTE | 2016-09-25 08:34 | PROGRESS NOTE ---
DATE: 09/25/2016 SUBJECTIVE: He remains unresponsive. He has groaning unintelligibly and does not respond to vigorous verbal and tactile stimuli. OBJECTIVE: Vital Signs: Blood pressure 186/83, heart rate 76, respirations 27, temperature 99.2 degrees. General: He is an elderly man. Mental state as above. No acute distress. Skin: Pale and dry. HEENT: Conjunctivae are pink. Pupils are equal. Neck: Neck veins are distended above the clavicle at 45 degrees. Heart: Regular with a murmur. Lungs: Have equal breath sounds. No crackles. Abdomen: Soft and nontender. Bowel sounds are present. Extremities: Have trace edema. No clubbing or cyanosis. LABORATORY DATA: Sodium 146, potassium 3.4, chloride 101, bicarbonate 25, BUN 31, creatinine 6.1. Hemoglobin 11.3. IMPRESSIONS: 1. Global encephalopathy. No improvement thus far. Continue supportive care. 2. End-stage kidney disease: He will have his routine hemodialysis today but we will use a 3 potassium bath. 3. Nutrition. Add IDPN. 4. Electrolytes, acceptable. Three K bath today. 5. Acid-base in target. 6. Anemia in target.
[2016-09-25] MEDS ORDERED: HEPARIN ONE (08:45)
[2016-09-25] MEDS ORDERED: NS 2,000 ML ONE (08:45)
[2016-09-25] MEDS: D50W 250 ML, AMINOSYN 15% 500 ML, LIPOSYN 20% 250 ML IV SCH ×3 (10:07)
[2016-09-25] MEDS ORDERED: ATIVAN ONE (10:22)
[2016-09-25] MEDS: THIAMINE 100 MG in NS 50 ML IV SCH (13:19)
--- NOTE | 2016-09-25 14:16 | PROGRESS NOTE ---
DATE: 09/25/2016 SUBJECTIVE: Mr. Goncalves is still confused and still moaning. He did undergo dialysis. I actually saw him in dialysis. He appeared to be a little more comfortable. They have been using Haldol and Ativan. Still not able to cooperate and not swallowing. PHYSICAL EXAMINATION: Vital Signs: Temperature 97.5 degrees, pulse 77, respirations 19, blood pressure 202/107. Blood pressure had been running pretty high, 194 to 202/74 to 107. Lungs: Clear anterolateral. Cardiovascular: Regular rhythm and rate without murmur or S3. Abdomen: Soft. Skin: Warm and dry. LABORATORY DATA: Blood sugars 57, 104, 110. Review of labs from this morning. No new labs. Labs from yesterday: Sodium 146, potassium 3.4, chloride 101, BUN 31, creatinine 6.1, albumin 3.3. Chest x-ray from yesterday, the development of mild pulmonary edema, right basilar infiltrate. ASSESSMENT AND PLAN: 1. Global encephalopathy. No improvement thus far. Continue supportive care. I have started thiamine and try and optimize electrolytes. Volume status looks okay. 2. End-stage renal disease, for dialysis today. They are going to use the 3-potassium bath. 3. Nutrition. Add . 4. Electrolytes. Acceptable 3-potassium bath today. Acid-base and anemia stable. 5. Chest x-ray with questionable infiltrate. 6. Hypertension. Blood pressure seems to be climbing a little bit. We added clonidine patch 0.2 mg patch, and we will add Apresoline q.6 hours p.r.n. hypertension. 7. Diabetes mellitus type 2. The sugars look well controlled. I do not have any new suggestions. 8. He is on amiodarone. Of course, I should mention atrial fibrillation. He gets 200 mg daily. 9. He is on the Pletal 100 mg b.i.d., aspirin 81 mg a day, isosorbide mononitrate 30 mg a day. Insulin detemir 17 units subcutaneously q.a.m. Sevelamer 800 mg t.i.d. Rocaltrol 0.25 mcg 3 times a week. Metoprolol 25 mg q.a.m. Cholecalciferol 1000 units q.a.m. Thiamine; we are giving 100 mg IV daily.
[2016-09-25] MEDS: APRESOLINE IV PRN ×2 (14:20→20:05)
[2016-09-26] MEDS: APRESOLINE IV PRN ×4 (02:24→23:44)
[2016-09-26 05:10] LABS: ALBUMIN 3.6 g/dL (3.5-5.0); CALCIUM 9.9 mg/dL (8.8-10.2); POTASSIUM 3.9 mmol/L (3.5-5.1)
[2016-09-26] MEDS: ATIVAN IV PRN ×4 (05:48→21:46)
[2016-09-26] MEDS: HUMULIN R SUBQ SCH ×4 (06:35→21:47)
[2016-09-26] MEDS: RENAGEL PO SCH ×3 (08:05→16:00)
[2016-09-26] MEDS: COLACE PO SCH (08:06)
[2016-09-26] MEDS: ASPIRIN PO SCH (08:06)
[2016-09-26] MEDS: IMDUR PO SCH (08:06)
[2016-09-26] MEDS: CORDARONE PO SCH (08:06)
[2016-09-26] MEDS: TOPROL XL PO SCH (08:07)
[2016-09-26] MEDS: PLETAL PO SCH ×2 (08:07→21:47)
[2016-09-26] MEDS: VITAMIN D PO SCH (08:07)
[2016-09-26] MEDS: LEVEMIR SUBQ SCH (08:12)
[2016-09-26] MEDS: HEPARIN SUBQ SCH ×2 (08:13→21:46)
[2016-09-26] MEDS: THIAMINE 100 MG in NS 50 ML IV SCH (09:14)
[2016-09-26 10:23] LABS: ALLEN TEST YES; BE 4.5 mmoll (-3.0-3.0); BLOOD TYPE ARTERIAL; DRAW SITE R RADIAL; METHB 1.6 % (0.0-1.5); O2(CT) 16.1 mL/dL (15.0-23.0); PCO2(98.6) 43 mmHg (35-45); PO2(98.6) 89 mmHg (60-100); SAMPLE BLOOD; SAO2 98.7 % (95.0-100.0); pH(98.6) 7.44 (7.35-7.45)
[2016-09-26 10:25] LABS: MODALITY CANNULA
--- NOTE | 2016-09-26 10:47 | PROGRESS NOTE ---
DATE: 09/26/2016 TIME SEEN: 0755. SUBJECTIVE: Mr. Goncalves is resting quietly in bed. He moans with tactile stimuli. Otherwise he remains unresponsive and continues to grown unintelligibly with any stimuli. OBJECTIVE: Vital signs: His most recent vital signs, temperature 98.7 degrees , blood pressure 158/78, heart rate 83, respirations 28. He is on 3 L nasal cannula. Last recorded saturation 98%. He has had 50 in. He has had 3500 out on hemodialysis yesterday. Labs: This a.m., sodium 143, potassium 3.9, chloride 96, CO2 25, BUN 29, creatinine 4.3, glucose 227. His anion gap 22, calcium 9.9, phosphorus 3.4, albumin 3.6. Previous hemoglobin 11.3 on the . PHYSICAL EXAMINATION: General: This is a 66-year-old white male. He is currently resting in bed. He is in no acute distress. Skin: Warm and dry. HEENT: Normocephalic, atraumatic. Conjunctivae pink. Pupils are equal, though somewhat constricted. Neck: Supple. Trachea midline. No JVD noted today. Cardiovascular: Regular rate and rhythm. He has a positive systolic murmur. Lungs: Have equal breath sounds. Clear to auscultation. Remains on O2. Equal excursion. Abdomen: Soft, nontender. Positive bowel sounds. Extremities: Trace edema. No clubbing or cyanosis. Neurological: As mentioned above. ASSESSMENT AND PLAN: 1. End-stage kidney disease. Patient had his routine dialysis yesterday. No indications for any intervention today. 2. Electrolytes and acid-base balance. These are stable. 3. Anemia. This is in target. 4. Global encephalopathy. There has been no improvement, though patient does rest quietly unless there is any stimuli in the room. We will continue to monitor. I would like to thank you for allowing us to follow with this patient. Seen, data reviewed, discussed with Darci Mulligan on 09/26/16. I agree with the above assessment and plan of care. rg Dictated by SANDOR Gresham for Nathanael Kurtz MD [facility]
--- NOTE | 2016-09-26 11:00 | PROGRESS NOTE ---
DATE: 09/26/2016 SUBJECTIVE: Today, Mr. Goncalves continues to be the same, just unresponsive. He is groaning but not responding to any command. OBJECTIVE: Vital Signs: Blood pressure is 158/78, pulse of 83, respirations are 25, temperature is 98.7 degrees. General Examination: Mr. Goncalves is a 66-year-old, male. He is in bed. It does not seems to be in any distress. HEENT: Mucosa is pink and moist. Anicteric. Acyanotic. Neck: Supple. Chest: Air entry is bilaterally reduced. A few bibasilar crepitations. Cardiovascular: Regular rate and rhythm. Questionable 2 to 3/6 murmur. There is an old sternotomy scar. Abdomen: Soft, nontender. There is about a 4 cm enlargement in the liver beyond the costal margin. This seems to be nontender. The bowel sounds are present. Extremities: No pedal edema. Patient has a left AV fistula that he normally gets dialysis from. Laboratory Data: There is no CBC today. Chemistry is reviewed, consistent with endstage renal disease. The glucose is 238. ASSESSMENT: 1. Altered mental status. Etiology is unclear. It seems to be global. The patient does not respond to any commands. He continues to groan and moan. 2. Endstage renal disease, on dialysis. 3. Hypertension is controlled. 4. History of atrial fibrillation, currently rate controlled. 5. Diabetes mellitus, on insulin. 6. Nutritional needs. I understand the patient gets intradialytic parenteral nutrition during dialysis. GENERAL PLAN: The patient continues to be altered. I am really not sure why he is still altered. Review of investigations including an MRI and MRA of the brain, CT scan of the brain were unremarkable. We are going to do a RPR and HIV status. We will also start NG tube feedings. Keep a very critical control on his diabetes since he was treated before for DKA in the past. So far, blood cultures and urine cultures have been negative. Patient continues to be on antibiotics.
--- NOTE | 2016-09-26 11:14 | Diag Imaging Result Document ---
PROCEDURE NAME: CHEST/ABD TUBE PLACEMENT - 09/26/2016 PORTABLE CHEST X-RAY, 09/26/2016: COMPARISON: 09/24/2016. FINDINGS: There is a nasogastric tube with the tip in the stomach in good position. IMPRESSION: Nasogastric tube tip in the stomach.
--- NOTE | 2016-09-26 12:44 | Diag Imaging Result Document ---
PROCEDURE NAME: CHEST-PORTABLE - 09/26/2016 CHEST/ABDOMEN: COMPARISON: Compared to study performed earlier. FINDINGS: There is a nasogastric tube overlying the esophagus and stomach. The tip lies near the junction of the stomach and duodenum. The lung bases are clear. IMPRESSION: Nasogastric tube in good position. A preliminary report was called to the ICU at 12:22 p.m.
--- NOTE | 2016-09-26 13:36 | PROGRESS NOTE ---
DATE: 09/26/2016 Patient is in ICU bed. Mr. Goncalves continues very poorly responsive. He appeared to be sleeping quietly. With moderate level of noxious stimulation, he began to squirm, moved all limbs, groaned, turned his head left and right, grimaced. He made some noises that suggested to me that he was attempting to speak but I did not understand any words. When not vigorously stimulated, he was very quickly back to sleep. Workup has included brain MRI this admission showing nothing remarkable, nothing changed compared to scan done several months ago. I will order EEG to make sure he is not having subclinical seizures. Still, I suspect his global encephalopathy is due to toxic effect of medication, not certain which medicine, possibly multiple factors. He has baseline cognitive impairment, which will predispose him to relatively protracted periods of encephalopathy with any toxic disturbance. [facility] CENTERGriselda
[2016-09-27 05:43] LABS: MANUAL DIFF NEEDED? NO
[2016-09-27 05:44] LABS: BASO% 0.5 % (0.0-0.8); EOS# 0.15 X1000 (0.0-0.7); EOS% 3.7 % (0.0-10.0); HEMATOCRIT 39.4 % (42.0-52.0); HEMOGLOBIN 12.6 g/dL (14.0-18.0); IMM GRAN# 0.03 X1000 (0.0-0.04); IMM GRAN% 0.7 % (0.0-0.5); LYMPH# 0.52 X1000 (1.2-3.4); LYMPH% 12.7 % (20.5-51.1); MCH 29.5 PG (27-31); MCV 92.3 FL (81-99); MONO# 0.43 X1000 (0.11-0.59); MONO% 10.5 % (1.7-9.3); MPV 11.2 FL (7.4-10.4); NEUT% 71.9 % (42.2-75.2); PLT 143 X1000 (130-400); RBC 4.27 XMIL (4.7-6.1)
[2016-09-27] MEDS: APRESOLINE IV PRN (06:13)
[2016-09-27] MEDS: HUMULIN R SUBQ SCH ×5 (06:14→20:19)
[2016-09-27] MEDS ORDERED: NS 2,000 ML MISC PRN (06:59)
[2016-09-27] MEDS ORDERED: TIGHT: 0.2 ML/HR MISC PRN (06:59)
[2016-09-27] MEDS ORDERED: HEPARIN IV PRN (06:59)
[2016-09-27 07:21] LABS: ALBUMIN 3.2 g/dL (3.5-5.0); CALCIUM 10.1 mg/dL (8.8-10.2); POTASSIUM 3.3 mmol/L (3.5-5.1)
[2016-09-27] MEDS ORDERED: NS 2,000 ML ONE (08:05)
[2016-09-27] MEDS: LEVEMIR SUBQ SCH (09:13)
[2016-09-27] MEDS: CORDARONE PO SCH (09:13)
[2016-09-27] MEDS: HEPARIN SUBQ SCH ×2 (09:13→20:19)
[2016-09-27] MEDS: D50W 250 ML, AMINOSYN 15% 500 ML, LIPOSYN 20% 250 ML IV SCH ×3 (09:43)
[2016-09-27 10:28] LABS: HIV ANTIBODY SCREEN SEE COMMENTS (())
--- NOTE | 2016-09-27 10:37 | PROGRESS NOTE ---
DATE: 09/27/2016 SUBJECTIVE: He is about the same today. His eyes are open but he does not interact with me. He is being prepared for an EEG. OBJECTIVE: Vital Signs: Blood pressure 92/70, heart rate 87, respirations 21, afebrile. Physical Examination: Generally: He is an elderly man. Mental status as above. No distress. Skin: Warm and dry. HEENT: Conjunctivae are pink. Neck: Neck veins are not distended. Heart: Regular with a murmur and a gallop. Lungs: Have equal breath sounds. No crackles. Abdomen: Soft and nontender. Bowel sounds are present. Extremities: Have 1+ edema. No clubbing or cyanosis. Laboratory Data: Sodium 143, potassium 3.3, chloride 96, bicarbonate 24, BUN 44, creatinine 5.9. Hemoglobin 12.6. IMPRESSION: 1. End-stage kidney disease. He will have his routine hemodialysis today. I had a conversation with his sister yesterday where I encouraged them to consider withdrawal of dialysis given his lack of recovery. They are discussing this. 2. Electrolytes/acid base/anemia, all in target. 3. Hypertension. His blood pressure is actually marginally low this morning. It has ranged widely from a systolic of 90-202. No changes.
--- NOTE | 2016-09-27 11:00 | PROGRESS NOTE ---
DATE: 09/27/2016 SUBJECTIVE: I saw Mr. Goncalves today. He was doing a dialysis session. He seems a little bit alert than yesterday. Obviously, he is still pretty confused and not very responsive. But this morning, he was able to open his eyes to verbal commands and he was able to gurgle in his speech, saying he is fine. OBJECTIVE: Vitals: Blood pressure is 143/96, pulse of 82, respirations 18, temperature is 97. General Exam: Mr. Goncalves is a 66-year-old, male. He was in bed getting dialysis session. HEENT: Mucosa is pink and moist. Anicteric. Acyanotic. Neck: Supple. Chest: Good air entry bilateral. A few bibasilar crepitations. Cardiovascular: Regular rate and rhythm. There is a 3/6 murmur and there is an old sternotomy scar. Abdomen: Soft, with about 4 cm enlargement in the liver beyond the costal margin and is nontender. Bowel sounds are present. Extremities: No pedal edema. The patient has a left AV fistula where dialysis was being given. LABORATORY DATA: Reviewed. CBC is unremarkable. Chemistry reviewed, consistent with end-stage renal disease. ASSESSMENT: 1. Altered mental status. Etiology is unclear due to global encephalopathy. 2. End-stage renal disease on hemodialysis. 3. Hypertension controlled. 4. History of atrial fibrillation currently rate controlled. 5. Diabetes mellitus. 6. Nutritional needs. Patient has a nasogastric tube in place and is getting a Nepro. Seems to be tolerating it. PLAN: Patient RPR was negative. B12 and folate, B12 was normal, folate was a little low. We started him on some folate supplement and TSH is normal. Of note, the patient has had this altered mental status a couple weeks ago and we understand it was due to medication change in the medications that he normally takes. I assume it is the same thing that is going on. Patient on electrolytes and ABGs have been unremarkable. Will just give it time to see if he would bounce back. I also think patient probably has an underlying cognitive impairment, which is very easy to get decompensated with very minimal metabolic derangement.
--- NOTE | 2016-09-27 11:02 | EEG REPORT ---
DATE: 09/26/2016 PROCEDURE: Electroencephalogram. EEG #: [id number]. DATE OF PROCEDURE: 09/27/2016. COMMENT: This is a digitally recorded EEG done portably in the ICU on a 66-year -old patient with persistent poor responsiveness, specific question of subclinical seizure. FINDINGS: The record is composed of polymorphic and rhythmic theta frequencies symmetrically across the hemispheres. There is very poorly sustained posterior rhythm at 8-9 Hz intermittently. Some beta rhythm is present centrally. Photic stimulation did not significantly alter the record. Drowsing occurred with appearance of more generalized slowing. Typical findings of stage II sleep were not recorded. No definite epileptiform discharge was identified. INTERPRETATION: Abnormal EEG because of generalized slowing. CORRELATION: This is indicative of a diffuse encephalopathy and is nonspecific. The absence of epileptiform discharges on a single EEG does not exclude a clinical diagnosis of seizures, but there is nothing on this record to suggest ongoing seizures as a reason for his continued poor responsiveness. [facility]
--- NOTE | 2016-09-27 11:21 | PROGRESS NOTE ---
DATE: 09/27/2016 I saw Mr. Goncalves during hemodialysis. He is more alert. With name calling, he opened his eyes and looked at me. He did not follow commands but he did move his limbs purposefully. His EEG this morning shows generalized slowing but no evidence of seizure and no evidence of focal encephalopathy. I do not have any new thoughts or new suggestions today from a neurologic standpoint. Thanks for allowing me to follow Mr. Goncalves.
[2016-09-27] MEDS: RENAGEL PO SCH ×3 (12:30→17:00)
[2016-09-27] MEDS: ROCALTROL PO SCH (13:07)
[2016-09-27] MEDS: COLACE PO SCH (13:08)
[2016-09-27] MEDS: ASPIRIN PO SCH (13:08)
[2016-09-27] MEDS: TOPROL XL PO SCH (13:08)
[2016-09-27] MEDS: PLETAL PO SCH ×2 (13:08→20:19)
[2016-09-27] MEDS: VITAMIN D PO SCH (13:08)
[2016-09-27] MEDS: IMDUR PO SCH (13:08)
[2016-09-27] MEDS: THIAMINE 100 MG in NS 50 ML IV SCH (13:10)
[2016-09-27] MEDS: ATIVAN IV PRN (13:29)
[2016-09-27] MEDS ORDERED: MORPHINE IV ONE (14:20)
--- NOTE | 2016-09-27 14:21 | PALLIATIVE CARE CONSULTATION ---
DATE: 09/27/2016 REQUESTING PHYSICIAN: Dr. Olivares. REASON FOR CONSULTATION: Goals of care. HISTORY OF PRESENT ILLNESS: This is a 66-year-old, male with a past medical history of end-stage renal disease, requiring hemodialysis, lung cancer, coronary artery disease, diabetes mellitus type 2, hypertension, paroxysmal atrial fibrillation and chronic anemia. He was most recently admitted on 09/21/2016 after being transferred from [facility] in [place] due to altered mental status. Mr. Goncalves's family is at the bedside. They state prior to this admission Mr. Goncalves was able to wheel himself around the skilled nursing in his wheelchair. He was able to feed himself. He did need assistance with dressing and bathing. They state that he was very talkative and pleasant but did have episodes of altered mental status requiring hospitalization over the last couple of months. However today Mr. Goncalves is in the ICU. He is lying in the hospital bed. He does open his eyes to verbal stimulation but he is groaning. He does not follow commands. The Palliative Care team has been consulted to assist with goals of care. REVIEW OF SYSTEMS: Unable to review. PAST MEDICAL HISTORY: See HPI. PAST SURGICAL HISTORY: 1. Colon resection. 2. Coronary bypass. 3. Back surgery. 4. Appendectomy. 5. Cataract surgery. 6. Left shoulder surgery. 7. Right foot surgery. SOCIAL HISTORY: Alcohol, tobacco and drug use have been denied. 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 He has never been and does not have any children. He is the oldest of 11 siblings all of whom are still living and are very attentive to Mr. Goncalves's care. FAMILY HISTORY: None pertinent. PHYSICAL EXAM: General: This is a 66-year-old, chronically ill-appearing, male who is lying in the hospital bed groaning. HEENT: Atraumatic, normocephalic. Neck: Supple. Cardiovascular: Regular rate and rhythm with murmur. Pulmonary: Lung sounds are diminished. Abdomen: Soft. Bowel sounds are active. Extremities: Pulses are palpable. IMPRESSION: This is a 66-year-old, male with a past medical history as listed above in the HPI. I have met four of Mr. Goncalves's siblings to discuss his goals of care. They state that he does not have a power of ip attorney or advanced directive but the siblings have come together and discussed past conversations that they have had with Mr. Goncalves and have come to the decision that Mr. Goncalves would not want chest compressions. He would not want to be placed on the ventilator nor would he want defibrillation if needed. They have decided that he would want medications to stimulate his heart or decrease his blood pressure if needed therefore a DNR level 2 ACLS medications only order will be placed. The youngest sister, Isabelle states that Nephrology has mentioned withdrawal dialysis treatments. The family has talked about that but they have not made a decision of whether they want to withdrawal dialysis. They did have questions regarding the process of withdrawing dialysis and that was discussed along with transitioning to comfort measures. I have asked that the nurse give Mr. Goncalves's ordered dose of lorazepam to help with his agitation. We will continue to follow to assist with symptom management and to have further conversations regarding goals of care. Thank you for this consultation. Dictated by SANDOR Hebert for Slade Mason MD
[2016-09-28 05:46] LABS: MANUAL DIFF NEEDED? NO
[2016-09-28 06:00] LABS: BASO% 0.3 % (0.0-0.8); EOS# 0.12 X1000 (0.0-0.7); HEMATOCRIT 42.3 % (42.0-52.0); HEMOGLOBIN 13.3 g/dL (14.0-18.0); IMM GRAN# 0.04 X1000 (0.0-0.04); IMM GRAN% 0.7 % (0.0-0.5); LYMPH# 0.75 X1000 (1.2-3.4); LYMPH% 12.3 % (20.5-51.1); MCH 28.9 PG (27-31); MCHC 31.4 g/dL (33-37); MONO% 13.1 % (1.7-9.3); MPV 10.4 FL (7.4-10.4); NEUT% 71.6 % (42.2-75.2); PLT 216 X1000 (130-400)
[2016-09-28] MEDS: HUMULIN R SUBQ SCH ×4 (06:19→20:35)
[2016-09-28 07:50] LABS: ALBUMIN 3.7 g/dL (3.5-5.0); CALCIUM 10.4 mg/dL (8.8-10.2); POTASSIUM 3.5 mmol/L (3.5-5.1)
[2016-09-28] MEDS: VITAMIN D PO SCH (08:09)
[2016-09-28] MEDS: CORDARONE PO SCH (08:10)
[2016-09-28] MEDS: COLACE PO SCH (08:10)
[2016-09-28] MEDS: ASPIRIN PO SCH (08:10)
[2016-09-28] MEDS: PLETAL PO SCH (08:10)
[2016-09-28] MEDS: TOPROL XL PO SCH (08:10)
[2016-09-28] MEDS: IMDUR PO SCH (08:10)
[2016-09-28] MEDS: HEPARIN SUBQ SCH ×2 (08:10→20:35)
[2016-09-28] MEDS: RENAGEL PO SCH ×3 (08:10→17:36)
[2016-09-28] MEDS: LEVEMIR SUBQ SCH (08:15)
[2016-09-28] MEDS: THIAMINE 100 MG in NS 50 ML IV SCH (09:21)
--- NOTE | 2016-09-28 14:45 | PROGRESS NOTE ---
DATE: 09/28/2016 TIME SEEN: 0750 SUBJECTIVE: Mr. Goncalves is resting quietly in bed. His eyes open randomly. He remains restrained. He moans aloud. No indications of any acute distress. OBJECTIVE: His most recent vital signs are temperature 98 degrees, blood pressure 218/87, heart rate 90, respirations 22. He is on 2L nasal cannula. Last recorded saturation 98%. He has had 770 in. He has had 3 L removed on hemodialysis yesterday. LABORATORIES: This a.m., sodium 142, potassium 3.5, chloride 94, CO2 of 30, BUN 38, creatinine 4.4, glucose 195, anion gap 18, calcium 10.4, phosphorus 3.4, albumin 3.7. White count 6.1, hemoglobin 13.3, hematocrit 42.3, with a platelet count of 216,000. PHYSICAL EXAMINATION: General: This is a 66-year-old white male. He is currently resting in bed. He is in no acute distress, though he remains slightly agitated. He is restrained and moaning. HEENT: Normocephalic, atraumatic. Conjunctivae pink. He has TODD. Mucous membranes are dry. Neck: Supple. Trachea midline. No JVD. Cardiovascular: Regular rate and rhythm. He has a positive systolic murmur and gallop. Lungs: Clear to auscultation anteriorly. Equal excursion. He is currently on O2. Abdomen: Round, soft, nontender. Positive bowel sounds. NG tube for tube feeding remains in place. Extremities: Edema 1+. No clubbing or cyanosis. Genitourinary: Minimal void with hemodialysis assist. Integumentary: No rashes or lesions evident. Some bruising noted to the wrist area secondary to restraints. Neurologic: As mentioned above. ASSESSMENT AND PLAN: 1. End-stage renal disease. Patient is due for his routine dialysis in the a.m. Doctor Tessie has spoken to the patient's family for consideration of withdrawal of dialysis, given his lack of recovery over the last several days of hospitalization and continued altered mental status. 2. Electrolytes and acid-base balance with anemia. These all remain in target. 3. Hypertension. This is marginally elevated again this morning, more than likely secondary to patient restraint and restlessness. I would like to thank you for allowing us to follow with this patient. Seen, data reviewed, discussed with Darci Mulligan on 09/28/16. I agree with the above assessment and plan of care. rg Dictated by SANDOR Gresham for Nathanael Kurtz MD [facility]
--- NOTE | 2016-09-28 15:58 | PROGRESS NOTE ---
DATE: 09/28/2016 SUBJECTIVE: Today, Mr. Goncalves is a whole lot more alert than yesterday. OBJECTIVE: Vital Signs: Blood pressure is 110/78, respiration is 14, pulse is 85, temperature is 97.9 degrees. General: Mr. Goncalves is a 66-year-old male. He was in bed and did not seem to be in any distress. HEENT: Mucosa is pink and moist. Anicteric. Acyanotic. Neck is supple. Chest was clear. A few bibasilar crepitations. Cardiovascular: Regular rate and rhythm. There is about 3/6 murmur and an old sternotomy scar on the anterior chest wall. Abdomen is soft. Mild hepatomegaly. Bowel sounds were present. MOLDER SETTER: The patient is more alert. He is able to say yes or no, and he moves all his extremities. LABORATORY DATA: Reviewed. Chemistries consistent with end-stage renal disease. CBC is reviewed. There is no concern. ASSESSMENT: 1. Altered mental status. Etiology is unclear. We think this is probably from toxic metabolic encephalopathy. His mentation seems to be improving. We will continue observing. 2. End stage renal disease, on hemodialysis. 3. Hypertension, controlled. 4. Atrial fibrillation, currently rate controlled. 5. Diabetes mellitus, stable. 6. Nutritional needs: The patient continues on NG tube feedings and seems to be tolerating that very appropriately. PLAN: The patient seems to be improving in his mentation. We will continue with his current medications, and we will discontinue all the sedatives, so I will be extremely careful with the use of any sedatives in the patient. [facility]
[2016-09-29] MEDS: HALDOL IM PRN (02:02)
[2016-09-29 05:22] LABS: CALCIUM 10.1 mg/dL (8.8-10.2); POTASSIUM 3.3 mmol/L (3.5-5.1)
[2016-09-29] MEDS: HUMULIN R SUBQ SCH ×4 (06:17→21:09)
[2016-09-29] MEDS ORDERED: HEPARIN IV PRN (07:02)
[2016-09-29] MEDS ORDERED: TIGHT: 0.2 ML/HR MISC PRN (07:02)
[2016-09-29] MEDS ORDERED: NS 2,000 ML MISC PRN (07:02)
[2016-09-29] MEDS: ROCALTROL PO SCH (08:37)
[2016-09-29] MEDS: RENAGEL PO SCH ×3 (08:37→17:21)
[2016-09-29] MEDS: COLACE PO SCH (08:38)
[2016-09-29] MEDS: VITAMIN D PO SCH (08:38)
[2016-09-29] MEDS: CORDARONE PO SCH (08:38)
[2016-09-29] MEDS: ASPIRIN PO SCH (08:38)
[2016-09-29] MEDS: HEPARIN SUBQ SCH ×2 (08:38→21:08)
[2016-09-29] MEDS: TOPROL XL PO SCH (08:38)
[2016-09-29] MEDS: IMDUR PO SCH (08:38)
[2016-09-29] MEDS: LEVEMIR SUBQ SCH (08:39)
[2016-09-29] MEDS: THIAMINE 100 MG in NS 50 ML IV SCH (09:23)
[2016-09-29] MEDS ORDERED: HEPARIN ONE (10:12)
[2016-09-29] MEDS ORDERED: NS 2,000 ML ONE (10:12)
--- NOTE | 2016-09-29 11:03 | PROGRESS NOTE ---
DATE: 09/29/2016 Mr. Goncalves has been gradually more alert in the last 36 hours. This morning, he is awake, alert, attentive, carrying on some appropriate conversation, speaking spontaneously. His recovery is encouraging. He has had previous episodes of protracted global encephalopathy, which have resolved over time. I do not see evidence of anything new from neurologic standpoint today. Thanks for asking me to see Mr. Goncalves.
--- NOTE | 2016-09-29 11:24 | PROGRESS NOTE ---
DATE: 09/29/2016 SUBJECTIVE: This morning, Mr. Goncalves referred to be doing a whole lot better. He is more alert and he was actually asking for water. OBJECTIVE: Vital Signs: Stable. Blood pressure is 167/96, pulse around 80, respirations 19, temperature 98.1. General: Mr. Goncalves is a 66-year-old, male. He is in bed. He does not seem to be in any distress. HEENT: Mucosa is pink and moist. Anicteric. Acyanotic. Neck: Supple. Chest: Good air entry bilaterally. Few bibasilar crepitations. Cardiovascular: Regular rate and rhythm. There is 2/6 murmur. An old sternotomy scar. Abdomen: Soft. Mild hepatomegaly. Bowel sounds are present. Extremities: No pedal edema. 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 LABORATORY DATA: Chemistry reviewed consistent with endstage renal disease. ASSESSMENT: 1. Altered mental status. Etiology is unclear. We think it is from toxic metabolic encephalopathy. May be from drug side effects. 2. End-stage renal disease on hemodialysis. 3. Hypertension. 4. History of atrial fibrillation currently rate controlled. 5. Diabetes mellitus. 6. Protein calorie malnutrition. 7. Generalized deconditioning. PLAN: Our general plan, patient's mentation is improving. We will remove the NG tube and start feeding the patient with renal diet. We will transfer him from the ICU to regular floor. Hopefully within a day or 2, we might be able to discharge him.
--- NOTE | 2016-09-29 11:38 | PROGRESS NOTE ---
DATE: 09/29/2016 SUBJECTIVE: Mr. Goncalves is lying quietly in bed. His eyes are open. He is attempting to talk. He is stumbling over his words. He is forgetful though he does state that he recognizes Dr. Kurtz. He denies any pain. OBJECTIVE: Vital signs: Temperature 97.9 degrees, blood pressure 169/57, heart rate 82 and respirations 18. He is on room air at this time. He is saturating at 98%. He has had 800 in, he has had 0 out with need for dialysis today. LABORATORY DATA: This a.m. sodium 140, potassium 3.3, chloride 94, CO2 28, BUN 54, creatinine 5.7, glucose 194. Anion gap of 18, calcium is 10.1. Previous hemoglobin drawn on the .3. PHYSICAL EXAMINATION: General: This is a 66-year-old white male. He is resting quietly in bed. He is in no acute distress. Skin: Warm and dry. HEENT: Normocephalic, atraumatic. Conjunctivae pink. He has TODD. Mucous membranes moist. Neck: Supple. Trachea midline. No JVD. Cardiovascular: Regular rate and rhythm. He has a soft systolic murmur otherwise no gallop appreciated. Lungs: Clear to auscultation anteriorly. Equal excursion. Abdomen: Round, soft, nontender. Positive bowel sounds. Genitourinary: Not inspected. Minimal void with dialysis assist. Integumentary: No rashes or lesions evident. Some bruising noted to the wrist from restraints. Neurological: As mentioned above. ASSESSMENT AND PLAN: 1. End-stage renal disease. Patient is due for his routine dialysis treatment today. We will place him on a 3 K bath. He is to dialyze for 3.5 hours. We will attempt to pull patient to his dry weight. 2. Electrolytes and acid-base balance. He has mild hypokalemia with correction on dialysis. 3. Anemia. This remains stable, in target. 4. Hypertension. This remains elevated but more controlled. 5. Altered mental status. This continues with some recognition noted today. I would like to thank you for allowing us to follow with this patient. Seen, data reviewes, discussed with Darci Mulligan on 09/29/16. I agree with the above assessment and plan of care. Dictated by SANDOR Gresham for Nathanael Kurtz MD [facility]
[2016-09-29] MEDS: D50W 250 ML, AMINOSYN 15% 500 ML, LIPOSYN 20% 250 ML IV SCH ×3 (12:15)
[2016-09-29] MEDS ORDERED: ATIVAN IV ONE (12:38)
[2016-09-29] MEDS ORDERED: ATIVAN ONE (12:40)
[2016-09-30] MEDS: HUMULIN R SUBQ SCH ×4 (06:36→21:11)
[2016-09-30 07:38] LABS: ALBUMIN 3.8 g/dL (3.5-5.0); CALCIUM 11.3 mg/dL (8.8-10.2); POTASSIUM 4.3 mmol/L (3.5-5.1)
[2016-09-30] MEDS: ASPIRIN PO SCH (08:28)
[2016-09-30] MEDS: CORDARONE PO SCH (08:28)
[2016-09-30] MEDS: TOPROL XL PO SCH (08:28)
[2016-09-30] MEDS: RENAGEL PO SCH ×3 (08:28→16:56)
[2016-09-30] MEDS: COLACE PO SCH (08:28)
[2016-09-30] MEDS: VITAMIN D PO SCH (08:28)
[2016-09-30] MEDS: IMDUR PO SCH (08:29)
[2016-09-30] MEDS: HEPARIN SUBQ SCH ×2 (08:33→20:19)
[2016-09-30] MEDS ORDERED: INSULIN PEN NEEDLES ONE (08:40)
[2016-09-30] MEDS: LEVEMIR SUBQ SCH (11:07)
--- NOTE | 2016-09-30 16:29 | PROGRESS NOTE ---
DATE: 09/30/2016 SUBJECTIVE: Today Mr. Goncalves looks more alert and he was actually being fed by one of his family members. OBJECTIVE: Vitals: Blood pressure is 132/106, pulse of 77, respiration is 18, temperature is 98.6 degrees. General: Mr. Goncalves is a 66-year-old male. He was in bed. Did not seem to be in any distress. HEENT: Mucosa is pink and moist. Anicteric. Acyanotic. Neck: Supple. Chest: Clear. Cardiovascular: Regular rate and rhythm. There is about 2/6 murmur, and an old sternotomy scar. Abdomen: Soft, nontender. Extremities: No pedal edema. CLINICAL FELLOW: Patient is alert, oriented. He was not verbal this morning to me, but he was able to nod his head to yes or no questions. LABORATORY DATA: Chemistry reviewed, consistent with end-stage renal disease. Glucose was 157 early this morning. ASSESSMENT: 1. Altered mental status. Etiology is unclear. We think it is related to toxic metabolic encephalopathy. It may be from drug side effects. Patient's mentation continues to be improving. 2. End-stage renal disease on scheduled hemodialysis, being followed by Nephrology. 3. Hypertension. Stable. 4. Atrial fibrillation. Currently rate controlled. 5. Diabetes mellitus. Glucose this morning was pretty stable. However I see patient ran into low blood glucose late last evening. 6. Protein calorie malnutrition. 7. Generalized deconditioning. 8. Anemia of chronic kidney disease. PLAN: We are going to continue with the current medications. Patient seems to be improving. We will continue. We will consult Physical Therapy to work with the patient to improve his muscle strength. We know patient was wheelchair-bound at the half-way and is a half-way resident from [facility]. We will also encourage the lift team to help the patient up to chair at least twice per day.
--- NOTE | 2016-09-30 20:14 | PROGRESS NOTE ---
DATE: 09/30/2016 TIME SEEN: 08 SUBJECTIVE: Mr. Goncalves is resting quietly in bed. He stares ahead. He does not acknowledge people in the room. He does not make eye contact. Remains nonverbal. OBJECTIVE: Vital signs: His most recent vital signs, temperature 98.6 degrees , blood pressure 132/106, heart rate 77, respirations 18. He is on room air. Last recorded saturation 95%. He has had 120 in. He has had 3 L off on dialysis yesterday. HIS MOST RECENT LAB: Sodium 137, potassium 4.3, chloride 94, CO2 25, BUN 42, creatinine 4.5, glucose 157, anion gap of 18, calcium 11.3, phosphorus 3.8, albumin 3.8. His last hemoglobin 13.3 on the . PHYSICAL EXAMINATION: General: This is a 66-year-old white male. He is resting in bed. He is in no acute distress. Skin: Warm and dry. HEENT: Normocephalic, atraumatic. Conjunctiva is pink. He has TODD. Mucous membranes moist. Neck: Supple. Trachea midline. No JVD. Cardiovascular: Regular rate and rhythm. Soft systolic murmur. No gallop noted. Lungs: Clear to auscultation anteriorly. Equal excursion. Abdomen: Round, soft, nontender. Positive bowel sounds. Genitourinary: Not inspected. Minimal void with dialysis assist. Integumentary: No rashes or lesions evident. Some bruising noted to the wrist where he has had previous restraints. Neurological: As mentioned above. ASSESSMENT AND PLAN: 1. End-stage renal disease. Patient is due for his routine dialysis on Sunday. No indications for any intervention today. 2. Electrolytes and acid-base balance. He continues with a history of mild hypokalemia. This remains stable. 3. Acid-base balance. This is stable. 4. Altered mental status. No changes today from the previous day if not slightly worse. There is no recognition in the patient today. I would like to thank you for allowing us to follow with this patient. Data reviewed. i agree with the above assessment and plan of care. rg Dictated by SANDOR Gresham for Nathanael Kurtz [facility]
[2016-10-01] MEDS: HUMULIN R SUBQ SCH ×4 (06:18→21:53)
[2016-10-01 08:17] LABS: ALBUMIN 3.3 g/dL (3.5-5.0); CALCIUM 10.3 mg/dL (8.8-10.2); POTASSIUM 4.7 mmol/L (3.5-5.1)
[2016-10-01] MEDS: RENAGEL PO SCH ×3 (09:34→17:33)
[2016-10-01] MEDS: CORDARONE PO SCH (09:34)
[2016-10-01] MEDS: TOPROL XL PO SCH (09:35)
[2016-10-01] MEDS: IMDUR PO SCH (09:35)
[2016-10-01] MEDS: VITAMIN D PO SCH (09:35)
[2016-10-01] MEDS: ASPIRIN PO SCH (09:35)
[2016-10-01] MEDS: HEPARIN SUBQ SCH ×2 (09:35→21:53)
[2016-10-01] MEDS: COLACE PO SCH (09:35)
[2016-10-01] MEDS: LEVEMIR SUBQ SCH (09:36)
--- NOTE | 2016-10-01 15:12 | PROGRESS NOTE ---
DATE: 10/01/2016 SUBJECTIVE: Today Mr. Goncalves refers to be doing okay. Looks more alert. Per the nursing staff, there is not any changes overnight. OBJECTIVE: Vital signs: Blood pressure is 101/64, pulse 83, respirations 16, temperature is 97.6 degrees. General: Mr. Goncalves 66-year-old male. He is in bed, no distress. HEENT: Mucosa is pink and moist. Anicteric. Acyanotic. Neck: Supple. Chest: Good air entry bilateral. There is an old sternotomy scar. There is about 6 to 3/6 TR murmur. Neuro: Patient is more alert, is slightly more conversational but he looks still confused. LABORATORY DATA: Chemistry reviewed consistent with end-stage renal disease. Glucose is 242. This morning it was 119 on surgical aides teacher labs. ASSESSMENT: 1. Altered mental status. Etiology is unclear. We think is global encephalopathy from toxic metabolic etiology. This seems to be improving. 2. End-stage renal disease on hemodialysis. The patient is followed by nephrology. 3. Hypertension is controlled. 4. Atrial fibrillation currently rate controlled. 5. Diabetes mellitus controlled. 6. Protein calorie malnutrition. Will continue with the supplement. 7. Anemia of chronic kidney disease. 8. Generalized deconditioning. Will continue with physical rehabilitation. 9. Diastolic heart failure in no exacerbation. GENERAL PLAN: Patient seems to be doing fine. We are going to continue with the current plan of care and constantly evaluate his mentation.
[2016-10-01] MEDS: CATAPRES-TTS-2 TD SCH (17:33)
[2016-10-02] MEDS: HUMULIN R SUBQ SCH ×4 (07:26→20:54)
[2016-10-02] MEDS ORDERED: NS 2,000 ML MISC PRN (07:39)
[2016-10-02] MEDS ORDERED: TIGHT: 0.2 ML/HR MISC PRN (07:39)
[2016-10-02] MEDS ORDERED: HEPARIN IV PRN (07:39)
[2016-10-02 08:22] LABS: ALBUMIN 3.3 g/dL (3.5-5.0); CALCIUM 10.3 mg/dL (8.8-10.2); POTASSIUM 5.7 mmol/L (3.5-5.1)
--- NOTE | 2016-10-02 10:30 | PROGRESS NOTE ---
DATE: 10/02/2016 LOCATION: Room 363A. Mr. Goncalves is awake, alert, sometimes attentive. He followed some simple commands. He carried on some very brief conversation with me. I do not see anything new neurologically. I do not have any new suggestion today. Thanks for asking me to see Mr. Goncalves.
[2016-10-02] MEDS ORDERED: HEPARIN ONE (11:09)
[2016-10-02] MEDS ORDERED: NS 2,000 ML ONE (11:09)
[2016-10-02] MEDS: CORDARONE PO SCH (11:18)
[2016-10-02] MEDS: IMDUR PO SCH (11:18)
[2016-10-02] MEDS: VITAMIN D PO SCH (11:18)
[2016-10-02] MEDS: COLACE PO SCH (11:19)
[2016-10-02] MEDS: RENAGEL PO SCH ×3 (11:19→18:32)
[2016-10-02] MEDS: LEVEMIR SUBQ SCH (11:19)
[2016-10-02] MEDS: ROCALTROL PO SCH (11:19)
[2016-10-02] MEDS: HEPARIN SUBQ SCH ×2 (11:19→20:53)
[2016-10-02] MEDS: TOPROL XL PO SCH (11:19)
[2016-10-02] MEDS: ASPIRIN PO SCH (11:19)
[2016-10-02] MEDS: EPOGEN SUBQ SCH (11:20)
--- NOTE | 2016-10-02 16:11 | PROGRESS NOTE ---
DATE: 10/02/2016 SUBJECTIVE: Today, Mr. Goncalves looks a whole lot better and more alert that days before. He does not have any complaint. OBJECTIVE: Vital signs: Blood pressure is 152/42, pulse 60, respiratory rate 16, temperature 98.5. General: Mr. Goncalves is a 66-year-old male. He was in bed, not in any distress. Mucosa was pink and moist. Anicteric and acyanotic. Chest: Good air entry bilateral. No crepitations. No rhonchi. Cardiovascular: Regular rate and rhythm. There is an old sternotomy scar in the anterior chest wall. There is a 3/6 TR murmur. Abdomen: Soft. RAG SHREDDER: The patient is alert. He is oriented to person and place, disoriented to time. He is able to follow some basic commands. DIAGNOSTIC DATA: Chemistry reviewed and consistent with end stage kidney disease. ASSESSMENT: 1. Altered mental status, etiology is unclear. Likely due to toxic metabolic encephalopathy. Seems to be progressively improving. We think this is probably related to medication induced on very poor cognition baseline to start with. 2. End stage renal disease on hemodialysis. I think the patient is due for one today. We will follow up with further recommendations from Nephrology. 3. Hypertension is controlled. 4. Atrial fibrillation, currently rate controlled. 5. Diabetes mellitus, controlled. 6. Protein calorie malnutrition. The patient is tolerating his diet and is getting also supplement. 7. Anemia of chronic kidney disease, stable. 8. Generalized deconditioning. The patient will continue to have physical rehabilitation. 9. Diastolic heart failure, in no acute exacerbation. 10.History of paraparesis. The patient is actually wheelchair bound. PLAN: In general, Mr. Goncalves is doing a whole lot better. His sensorium and mentation are improving. I think he does have an underlying dementia which is probably vascular in etiology versus Alzheimer's, and then he gets pretty much decompensated with any little aggression to his brain. My understanding is that he has been getting some muscle relaxant and some other sedatives in the group home which could be causing his altered mentation which brings him into the hospital, and actually this is the second time he has been back to back. On this discharge, I do not plan to send him on any sedatives or any pain medication, only Tylenol. I think hopefully by tomorrow, he will be a whole lot more awake and a whole lot more clear sensorium, and then we will be able to discharge him.
--- NOTE | 2016-10-02 16:52 | PROGRESS NOTE ---
DATE: 10/02/2016 SUBJECTIVE: Patient is resting in bed. He will make eye contact. He attempts to answer questions. He will stopped mid sentence, staring off into space. OBJECTIVE: Vital Signs: Temperature 98.5 degrees, pulse 68, respiratory rate 16, blood pressure 152/42. Intake and output: Intake 476 mL. Output not measured. General: Middle-aged gentleman, resting in bed. No acute distress. He is awake and appears to be alert. HEENT: Normocephalic, atraumatic. Conjunctivae pink. Oral mucosa moist. Neck: Supple. Trachea midline. No JVD. Cardiovascular: Regular rate and rhythm. Systolic murmur. No S4. Pulmonary: Equal excursion. He is clear bilaterally. Abdomen: Soft. Positive bowel sounds. : Not inspected. Minimal void. Integumentary: Skin is warm and dry. He has no rash or lesion. He does have some ecchymosis noted to the upper extremities LAB DATA: Sodium 128, potassium 5.7, CO2 21, BUN 76, creatinine 7.6, . ASSESSMENT AND PLAN: 1. End-stage renal disease management. His routine dialysis days are Sunday, Sunday, Sunday. We will continue this while he is in the hospital. He will dialyze on a 2 K bath/UF to dry weight, 3.5 hour treatment. 2. Electrolytes, acid-base balance, anemia. These are stable. See #1 for plan. 3. Altered mental status. His mental status waxes and wanes. Followed by primary and neurology. Data reviewed, discussed with Sue Valdez on 10/02/16. I agree with the above assessment and plan of care. rg Dictated by SANDOR Grimaldo for Nathanael Kurtz MD [facility]
[2016-10-03] MEDS ORDERED: D50W SYRINGE ONE (05:43)
[2016-10-03] MEDS ORDERED: D50W SYRINGE IV PRN (05:58)
[2016-10-03] MEDS: HUMULIN R SUBQ SCH ×4 (06:57→21:23)
[2016-10-03 07:41] LABS: ALBUMIN 3.3 g/dL (3.5-5.0); CALCIUM 9.6 mg/dL (8.8-10.2); POTASSIUM 5.2 mmol/L (3.5-5.1)
[2016-10-03] MEDS: COLACE PO SCH (08:15)
[2016-10-03] MEDS: HEPARIN SUBQ SCH ×2 (08:15→21:23)
[2016-10-03] MEDS: LEVEMIR SUBQ SCH (08:16)
[2016-10-03] MEDS: VITAMIN D PO SCH (08:17)
[2016-10-03] MEDS: IMDUR PO SCH (08:18)
[2016-10-03] MEDS: CORDARONE PO SCH (08:18)
[2016-10-03] MEDS: TOPROL XL PO SCH (08:18)
[2016-10-03] MEDS: RENAGEL PO SCH ×3 (08:18→16:38)
[2016-10-03] MEDS: ASPIRIN PO SCH (08:19)
[2016-10-03] MEDS: TYLENOL PO PRN ×2 (12:27→16:39)
--- NOTE | 2016-10-03 13:04 | PROGRESS NOTE ---
DATE: 10/03/2016 Mr. Goncalves is awake, more alert, brighter, more spontaneous. He complained of some soreness over the heels. I do not find anything new neurologically. I do not have any new thoughts or new suggestions from neurologic standpoint today. Thanks for allowing me to follow Mr. Goncalves.
--- NOTE | 2016-10-03 16:31 | PROGRESS NOTE ---
DATE: 10/03/2016 TIME SEEN: 0910. SUBJECTIVE: Mr. Goncalves is resting quietly in bed. He does make eye contact but there is no recognition. He has unable to follow commands. He does start to talk but stops mid sentence. OBJECTIVE: Vital signs: His most recent vital signs, temperature 98 degrees, blood pressure 111/47, heart rate 66, respirations 19. He is on room air. Last recorded saturation 97%. He has had 840 in. He has had 726 off on dialysis yesterday. Labs: Sodium 137, potassium is 5.2, chloride 95, CO2 26, BUN 38, creatinine 5, glucose 125, anion gap 16, calcium 9.6, phosphorus 5.4, albumin 3.3. Previous hemoglobin of 13.3 on the . PHYSICAL EXAMINATION: General: This is a 66-year-old white male. He is currently resting in bed. He is in no acute distress. Skin: Warm and dry. HEENT: Normocephalic, atraumatic. Conjunctivae pink. He has TODD. Mucous membranes moist. Neck: Supple. Trachea midline. No JVD. Cardiovascular: Regular rate and rhythm. Soft systolic murmur. No S4. Pulmonary: Clear to auscultation anteriorly. Equal excursion. On room air. Abdomen: Round, soft, nontender. Positive bowel sounds. Genitourinary: Not inspected. Minimal void with dialysis assist. Extremities: No edema. No clubbing or cyanosis. Integumentary: No rashes or lesions evident. Neurological: As mentioned above. ASSESSMENT AND PLAN: 1. End-stage renal disease. Patient is due for his routine dialysis in the a.m. We will plan for this and follow up labs. No need for intervention today. 2. Electrolytes and acid-base balance. These are stable. 3. Anemia. This remains at target. 4. Altered mental status. This continues to be unchanged. It waxes and wanes. He is now a DNR level 2. Followed by neurology. I would like to thank you for allowing us to follow with this patient. Data reviewed, discussed with Darci Mulligan on 10/03/16. I agree with the above assessment and plan of care. rg Dictated by SANDOR Gresham for Nathanael Kurtz MD [facility]
--- NOTE | 2016-10-03 18:16 | DISCHARGE SUMMARY ---
ADMISSION DATE: 09/21/2016 DISCHARGE DATE: 10/03/2016 CODE STATUS: DNR, level 2. CONSULTATIONS: 1. Dr. Bismark Becker with Neurology. 2. Dr. Nathanael Kurtz with Nephrology. 3. Jami Zuleta with palliative care. PERTINENT PROCEDURES: 1. Head CT showed no hemorrhage. Chronic microvascular ischemic changes similar to a prior study. 2. Brain MRI showed stable exam compared to 04/25/2016. Minimal chronic microvascular ischemic changes. No visible acute abnormality. No evidence of acute infarct. 3. Brain MRA showed limited detail. Apparent scattered stenosis at A-1 segment of the right anterior cerebral artery, A1 and proximal A2 segment of the left anterior cerebral artery. Distal left middle cerebral artery and possible posterior cerebral artery. 4. Neck MRA showed no substantial carotid stenosis identified. 5. Abdomen and pelvis CT showed patchy pneumonia versus pulmonary edema and a scar left pleural effusion. No definite evidence of acute intracranial abnormality or pelvic HOSPITAL COURSE: Briefly, Mr. Goncalves is a 66-year-old male, who is a resident at [facility], carries a past medical history of end-stage renal disease on hemodialysis with Dr. Kurtz Sunday, Sunday, and Sunday. Lung cancer, coronary disease, diabetes mellitus, type 2. The patient was brought into the emergency room from [facility] due to mental status changes. The patient was not responding at the detention. In the ED, he continued to be altered and not really arousable. He was admitted several weeks ago with similar symptoms. At that time of admission he was diagnosed with global encephalopathy, felt it was secondary to medications that he had been on. The patient was admitted to the ICU. He was given Narcan with not much response. He was placed on neuro status checks with a consult for neurology as well was nephrology. Head CT did not show anything acute nor did the brain MRI/MRA or neck MRA. Dr. Becker saw the patient. He believes that the patient has a baseline cognitive impairment syndrome which would predispose him to significant exacerbation of confusion and even altered consciousness with any toxic or metabolic disturbance. There have been concerns of that in the past with medications that may be contributing to his altered mental status. Again like last admission patient does gradually improve after being off these medicines. The patient was back initiated on his regular hemodialysis on Sunday, Sunday, and Sunday, under the guidance of Dr. Gladish. The patient was very slow to come around. He was given IV Clinimix and then the NG tube was placed for feedings. Patient did undergo an EEG that showed generalized slowing but no evidence of seizures. Palliative care was asked to see the patient. They did meet with 4 of Mr. Goncalves's siblings to discuss his goals of care. There is no power of patent chemist or Advance Directive. They came to the decision that Mr. Goncalves would not want any chest compressions based on past conversations. He was made a DNR level 2. He would not want to be placed on a ventilator nor would he want defibrillation if needed. They have decided that he would want medications to stimulate his heart or decrease his blood pressure if needed. Again DNR level 2 with ACLS medications only. They also talked about withdrawing dialysis however they have not made any decisions regarding the process of withdrawing it. Again, patient was slow to improve. However the last couple of days he clinically has been looking better. He is more alert. His sensorium and mentation is improving, believe that he does have underlying dementia which is probably vascular in etiology, versus Alzheimer's and he gets pretty much decompensated with any little aggression to his brain. Our understanding is that he has been getting some muscle relaxants and other sedatives in the detention which could be causing his altered mentation which brings him into the hospital. This is the 2nd time for admission for this type of altered mental status, global encephalopathy secondary to toxic metabolic encephalopathy. On discharge the patient will not be sent on any sedative or pain medicine only Tylenol. He is being discharged back to [facility] in [place]. Vital signs at the time of discharge, temperature is 98 degrees, heart rate 66, respirations 18, blood pressure is 111/47, O2 is 97% on room air. DISCHARGE DIAGNOSES: 1. Altered mental status etiology unclear, possibly likely due to toxic metabolic encephalopathy secondary to sedative and muscle relaxants. The patient is improving also secondary to very poor cognitive baseline to start with. 2. End-stage renal disease, on hemodialysis. 3. Hypertension, controlled. 4. Atrial fibrillation rate controlled. 5. Diabetes mellitus controlled. 6. Protein calorie malnutrition. The patient is tolerating a diet now and also getting supplements. 7. Anemia of chronic disease. Stable. 8. Generalized deconditioning. The patient has worked with physical therapy and will be going back to the detention. 9. Diastolic heart failure in no acute exacerbation. 10. History of paraparesis. Patient is wheelchair bound. DISCHARGE DIET: Nepro shakes with each meal and a renal diet. WOUND CARE: Mepilex gel to the right heel and cover every 3 days. Float heels while patient is in the bed. DISCHARGE MEDICATIONS: 1. Acid control 20 mg p.o. daily p.r.n. 2. Calcitriol 0.25 mcg p.o. on Sunday, Sunday, Sunday. 3. Stool softener 100 mg p.o. q.a.m. 4. Acetaminophen 625 mg p.o. q.6 hours p.r.n. 5. Aspirin 81 mg p.o. q.a.m. 6. Amiodarone 200 mg p.o. q.a.m. 7. Imdur 30 mg p.o. q.a.m. 8. MiraLAX 17 g p.o. with lunch. 9. Toprol-XL 25 mg p.o. q.a.m. 10. Humalog 5 units subcutaneously t.i.d. 11. Levemir 17 units subcutaneously q.a.m. 12. Vitamin D3 1000 units p.o. q.a.m. 13. Zetia 10 mg p.o. at bedtime. 14. Zinc sulfate 220 mg p.o. q.a.m. 15. DuoNeb 3 mL inhaled q.2 hours p.r.n. 16. Renagel 800 mg p.o. t.i.d. 17. Epogen 60872 units subcu q. 7 days. DISCHARGE INSTRUCTIONS: The patient is being discharged back to [facility] again holding any sedatives, muscle relaxers or any extra pain medication. The patient's mentation has much improved. He is now more alert and given his cognitive status any slight changes he decompensates. Again patient only going home on Tylenol for pain control. The patient was made a DNR level 2 here by his family. He was followed by palliative care. The patient will continue on his hemodialysis upon discharge. Patient can return to the ED for any worsening of symptoms. TIME SPENT AT DISCHARGE: Greater than 30 minutes. Dictated by SANDOR Deshpande for Paco Olivares MD
[2016-10-04] MEDS: HUMULIN R SUBQ SCH ×4 (06:48→20:52)
[2016-10-04] MEDS ORDERED: TIGHT: 0.2 ML/HR MISC PRN (07:25)
[2016-10-04] MEDS ORDERED: NS 2,000 ML MISC PRN (07:25)
[2016-10-04] MEDS ORDERED: HEPARIN IV PRN (07:25)
[2016-10-04] MEDS: TOPROL XL PO SCH (08:02)
--- NOTE | 2016-10-04 08:43 | PROGRESS NOTE ---
DATE: 10/04/2016 SUBJECTIVE: Patient resting in bed. He is more alert and awake today. We had a conversation about him "being tired of all of this." He states that he is "worn out." When asked if he knew where he was, he stated "in the hands of God." He continues to say that he is tired. OBJECTIVE: Vital Signs: Temperature 97.8 degrees, pulse 66, respiratory rate 17, blood pressure 125/61. Intake and output: Intake 605 mL. Output not measured. General: Middle-aged gentleman, resting in bed. He is awake and alert and oriented to person today. This is the best I have seen his mentation since he has been in the hospital. HEENT: Normocephalic, atraumatic. Arcus senilis noted. TODD. Conjunctivae pink. Oral mucosa moist. Neck: Supple. No JVD. Cardiovascular: Regular rate and rhythm with a systolic murmur. Pulmonary: Equal excursion. He is clear bilaterally. Abdomen: Soft. Positive bowel sounds. : Not inspected. He has minimal void with hemodialysis assist. Extremities: There is no clubbing, cyanosis, or edema noted. He is moving his upper extremities. Integumentary: Skin is warm and dry without rash or lesion. LAB DATA: Labs are not available yet. His glucose today was 171. ASSESSMENT AND PLAN: 1. End-stage renal disease management. Today is his routine dialysis day. We will go ahead and dialyze him as per his routine. We will continue on his routine prescription. 2. Electrolytes, acid-base balance, anemia. I have no new labs back; these are pending. 3. Altered mental status. See above. He is a DNR level 2. He is followed by neurology. There is some concern that the patient is exhibiting that he would like to withdraw from care. I will discuss HD with the family again. rg Seen, data reviewed, discussed with Sue Valdez on 10/04/16. I agree with the above assessment and plan of care. rg Dictated by SANDOR Grimaldo for Nathanael Kurtz MD [facility]
[2016-10-04] MEDS ORDERED: HEPARIN ONE (10:42)
[2016-10-04] MEDS ORDERED: NS 2,000 ML ONE (10:42)
[2016-10-04] MEDS: RENAGEL PO SCH ×3 (11:48→16:46)
[2016-10-04] MEDS: HEPARIN SUBQ SCH ×2 (11:50→20:52)
[2016-10-04] MEDS: LEVEMIR SUBQ SCH ×2 (11:52→18:25)
[2016-10-04] MEDS: ROCALTROL PO SCH (16:45)
[2016-10-04] MEDS: ASPIRIN PO SCH (16:45)
[2016-10-04] MEDS: IMDUR PO SCH (16:46)
[2016-10-04] MEDS: HALDOL IM PRN (16:46)
[2016-10-04] MEDS: VITAMIN D PO SCH (16:46)
[2016-10-04] MEDS: COLACE PO SCH (16:46)
[2016-10-04] MEDS: CORDARONE PO SCH (16:46)
--- NOTE | 2016-10-04 17:32 | PROGRESS NOTE ---
DATE: 10/04/2016 Today Mr. Goncalves referred to be doing okay. He does not really have any complaint. OBJECTIVELY: Vitals: Blood pressure is 138/58, pulse 66, respirations 22, temperature is 97.5 degrees. General: Mr. Goncalves is a 66-year-old male. He was in bed. He did not seem to be in any distress. He was more delightful than days before. Chest: Good air entry bilateral. No crepitations. No rhonchi. Cardiovascular: Regular rate and rhythm. There is an old sternotomy scar on the anterior chest wall. There is about 3/6 TR murmur. SEARCH ENGINE OPTIMIZATION SPECIALIST: Patient was alert and oriented x4. Does have some remarkable lower extremity weakness which is not new. LABORATORY DATA: Glucose is 202. ASSESSMENT: 1. Altered mental status. Etiology is still unclear. We think it is due to some toxic metabolic encephalopathy however, this has remarkably improved. 2. End-stage renal disease on hemodialysis. 3. Hypertension. Controlled. 4. Atrial fibrillation. Rate controlled. 5. Diabetes mellitus. 6. Anemia of chronic disease. 7. General deconditioning. 8. Diastolic heart failure. Currently not in exacerbation. 9. History of paraparesis. Patient is wheelchair bound for transfers. Patient is doing relatively fine. I think clinically he is okay to be discharged. There are pending finalized arrangement for his placement because he is from a long-term facility in [facility].
[2016-10-04] MEDS: D50W 250 ML, AMINOSYN 15% 500 ML, LIPOSYN 20% 250 ML IV SCH ×3 (18:54)
[2016-10-05] MEDS: HUMULIN R SUBQ SCH ×2 (06:13→10:53)
[2016-10-05] MEDS: LEVEMIR SUBQ SCH (08:02)
[2016-10-05] MEDS: HEPARIN SUBQ SCH (08:02)
[2016-10-05] MEDS: VITAMIN D PO SCH (08:03)
[2016-10-05] MEDS: ASPIRIN PO SCH (08:03)
[2016-10-05] MEDS: IMDUR PO SCH (08:03)
[2016-10-05] MEDS: CORDARONE PO SCH (08:03)
[2016-10-05] MEDS: RENAGEL PO SCH ×2 (08:03→13:00)
[2016-10-05] MEDS: TOPROL XL PO SCH (08:03)
[2016-10-05] MEDS: COLACE PO SCH (08:04)
[2016-10-05 08:10] VITALS: BP 121/54
[2016-10-05] MEDS: TYLENOL PO PRN (11:02)
--- NOTE | 2016-10-05 16:54 | PROGRESS NOTE ---
DATE: 10/05/2016 TIME SEEN: 0820 hours. SUBJECTIVE: Mr. Goncalves is resting quietly in bed. He has no complaints. He states that he wishes that he could to rehab and start getting stronger. Otherwise, he immediately reverts to asking people to pray for him. OBJECTIVE: Vital signs: His most recent vitals signs reveal a temperature of 98.6, blood pressure 121/54, heart rate 88 on the monitor, and respiratory rate 20. He is on room air. Last recorded saturation was 100%. Input: He has had 220 in. Output: He has had 1200 out per dialysis. General: This is a 66-year-old white male. He is resting quietly in bed. He is in no acute distress. His nurse is assisting him to eat his breakfast. Skin: Warm and dry. HEENT: Normocephalic, atraumatic. Conjunctivae are pale. PERRL. Mucous membranes are moist. Neck: Supple. No JVD. Trachea is midline. Cardiovascular: Regular rate and rhythm with a systolic murmur. No gallop. Lungs: Clear to auscultation anteriorly. Equal excursion on room air. Abdomen: Round, soft, and nontender. Positive bowel sounds. Genitourinary: Not inspected. Minimal void with dialysis assist. Extremities: No edema. No clubbing or cyanosis. Integumentary: Warm and dry without rashes or lesions. Neurological: Patient' s level of consciousness and alertness waxes and wanes throughout the day. His most recent labs reveal a previous potassium of 5.2 and previous hemoglobin of 13.3. ASSESSMENT AND PLAN: 1. End-stage renal disease. The patient is due for his routine dialysis treatment in the a.m.. If he is discharged to rehab he will need to have placement for dialysis. 2. Electrolytes, acid-base balance, and anemia. These have been stable. No labs today. 3. Altered mental status. This continues. The patient is a DNR level 2. I would like to thank you for allowing us to follow with this patient. Seen, data reviewed, discussed with Darci Mulligan on 10/05/16. I agree with the above assessment and plan of care. rg Dictated by SANDOR Gresham for Nathanael Kurtz MD [facility]
--- NOTE | 2016-10-06 02:36 | DISCHARGE SUMMARY ---
ADMISSION DATE: 09/21/2016 DISCHARGE DATE: 10/05/2016 ADDENDUM REPORT: The patient was originally DC'd on 10/03, however, [facility] in [place] called and stated they no longer have a bed for the patient but they would have one for him on . I spoke with Primary Special Educator. The patient can be discharged back to [facility] again. Also we are still holding any sedatives, muscle relaxers or any extra pain medications along with his gabapentin. The patient's mentation again is still much improved. There have been no acute changes. Patient is more alert and given his cognitive status with any slight changes he decompensates. The patient is going to [facility] with Tylenol only for pain control. Again, patient was made a DNR level 2 here by his family and followed by Palliative Care. He will continue on hemodialysis upon discharge. Patient can return to the ED for any worsening of symptoms. Dictated by SANDOR Deshpande for Paoc Olivares MD
== END 2016-10-05 14:40 | DRG 91 ==
LOC: EDBD → ED 21:07 → EDIPHOLD 09-21 02:52 → ICU 09-22 10:27 → 3N 09-29 11:27
PROVIDERS: ATTEND Internal Medicine
PROC: 5A1D60Z (ICD-10-PCS; principal; 2016-09-22)
DX: G92 Toxic encephalopathy (principal); N18.6 End stage renal disease; I13.2 Hypertensive heart and chronic kidney disease with heart failure and with stage 5 chronic kidney disease, or end stage renal disease; E46 Unspecified protein-calorie malnutrition; I48.0 Paroxysmal atrial fibrillation; E11.22 Type 2 diabetes mellitus with diabetic chronic kidney disease; C34.90 Malignant neoplasm of unspecified part of unspecified bronchus or lung; F05 Delirium due to known physiological condition; G30.9 Alzheimer's disease, unspecified; E11.65 Type 2 diabetes mellitus with hyperglycemia; I50.32 Chronic diastolic (congestive) heart failure; I25.10 Atherosclerotic heart disease of native coronary artery without angina pectoris; Z99.2 Dependence on renal dialysis; Z90.49 Acquired absence of other specified parts of digestive tract; Z95.1 Presence of aortocoronary bypass graft; Z96.612 Presence of left artificial shoulder joint; R74.8 Abnormal levels of other serum enzymes; Z66 Do not resuscitate; F01.50 Vascular dementia, unspecified severity, without behavioral disturbance, psychotic disturbance, mood disturbance, and anxiety; F02.80 Dementia in other diseases classified elsewhere, unspecified severity, without behavioral disturbance, psychotic disturbance, mood disturbance, and anxiety; D63.8 Anemia in other chronic diseases classified elsewhere; G82.20 Paraplegia, unspecified; Z99.3 Dependence on wheelchair; Z68.20 Body mass index [BMI] 20.0-20.9, adult; Z79.4 Long term (current) use of insulin; Z79.82 Long term (current) use of aspirin; Z79.899 Other long term (current) drug therapy
CPT/HCPCS: 70450; 70544; 70547; 70551; 71010; 74000; 74176; 80048; 80053; 80069; 81001; 82140; 82550; 82553; 82607; 82746; 82805; 82948; 83605; 83690; 83735; 84439; 84443; 84484; 85025; 85610; 85651; 85730; 86140; 86592; 86701; 87040; 87088; 93005; 94761; 94762; 95816; 96365; 96366; 96367; 96372; 96375; G0480; J0131; J0360; J0885; J1630; J1644; J2060; J2270; J2310; J2543; J3370; J3411; J7030; P9612; 80324; 80345; 80346; 80349; 80353; 80358; 80361; 80365; 83992; 97530-GP; 99285-25